=== PATIENT | female | born 1965 | race Caucasian/White ===

== ENCOUNTER 2016-12-05 13:00 | Emergency (ER) | payer OTHER ==
[~2016-12-05] VITALS: Wt 72.6 kg
[~2016-12-05 13:00] MED LIST: LEVAQUIN750 M1 IV; MERREM IV1 GM IV; NOVAPLUS LORA2 MG/ML IV; PRILOSEC20 M1 PO; PROTONIX40 M1 IV; SANDOSTATIN50 MCG/ML IV; SENEXON-S 50 MG1 TAB PO; THIAMINE HY100 MG/ML IV; VANCO 1.51.5 GM/250 IV; [UNRECOGNIZED DRUG - NUTRITION] IV
[2016-12-05 13:33] LABS: MEAN CELL VOLUME 96.6 fl (81.0-99.0); MEAN CORPUSCULAR HGB 29.5 pg (27.0-31.0); MEAN CORPUSCULAR HGB CONC 30.6 g/dl (33.0-37.0); MEAN PLATELET VOLUME 12.9 fl (9.6-12.3); PLATELET COUNT AUTOMATED 189 10*3/uL (130-400); RED BLOOD COUNT 1.76 10*6/uL (4.10-5.10); RED CELL DISTRI WIDTH 17.6 % (0-14.5); WHITE BLOOD COUNT 11.6 10*3/uL (4.8-10.8)
[2016-12-05 13:40] LABS: HEMOGLOBIN 5.2 g/dl (12.0-16.0); INTERNATIONAL NORM RATIO 1.9 (2.0-3.5); PROTHROMBIN TIME 21.1 SECONDS (9.0-12.4)
[2016-12-05 13:49] LABS: ALBUMIN 1.7 gm/dl (3.1-4.5); ALKALINE PHOSPHATASE 97 U/L (45-117); BILIRUBIN, TOTAL 4.8 mg/dl (0.2-1.0); BUN 11 mg/dl (7-24); CARBON DIOXIDE 15 mmol/L (21-32); CHLORIDE 115 mmol/L (98-107); EOSINOPHIL # 0.3 10*3/uL (0-0.4); EOSINOPHILS 3 % (1-4); EST GLOM FILT AFRICAN AMERICAN > 60 ml/min; GLUCOSE 118 mg/dL (65-99); LYMPHOCYTE # 1.5 10*3/uL (1.3-4.4); MAGNESIUM 1.3 mg/dL (1.5-2.1); MONOCYTE # 0.5 10*3/uL (0.1-1.0); NEUTROPHIL # 9.3 10*3/uL (2.3-7.9); NEUTROPHILS 80 % (47-73); PLATELET SUFFICIENCY NORMAL (NORMAL); POLYCHROMASIA SLIGHT; POTASSIUM 2.6 mmol/L (3.5-5.1); SGOT/AST 33 IU/L (3-35); SGPT/ALT 22 U/L (12-78); SODIUM 145 mmol/L (136-145); TOTAL CELLS COUNTED 100 #CELLS; TOTAL PROTEIN 4.6 gm/dL (6.4-8.2)
[2016-12-05 13:50] LABS: TROPONIN I 0.022 ng/ml (<0.045)
[2016-12-05 15:28] LABS: LA>2 REFLEX 2 HR DRAW NOW
== END 2016-12-05 15:03 | disposition short-term general hospital (02) ==
LOC: ED 13:00
PROVIDERS: Emergency Medicine Emergency Medical Services
DX: K92.2 Gastrointestinal hemorrhage, unspecified (principal); I95.9 Hypotension, unspecified; I10 Essential (primary) hypertension; Z79.899 Other long term (current) drug therapy; Z88.0 Allergy status to penicillin

== ENCOUNTER 2016-12-25 05:00 | Emergency (ER) | payer OTHER ==
[~2016-12-25] VITALS: Ht 162 cm; Wt 74.4 kg
[2016-12-25 05:22] LABS: BASO # 0.1 10*3/uL (0.0-0.1); BASO % 0.3 % (0.0-1.0); EOS # 0.7 10*3/uL (0.0-0.4); EOS % 3.5 % (1.0-4.0); HEMATOCRIT 19.7 % (37.0-47.0); HEMOGLOBIN 6.4 g/dl (12.0-16.0); IG # 0.2 10*3/uL (0.0-0.1); LYMPH # 2.5 10*3/uL (1.3-4.4); LYMPH % 13.2 % (27.0-41.0); MEAN CORPUSCULAR HGB 31.5 pg (27.0-31.0); MEAN CORPUSCULAR HGB CONC 32.5 g/dl (33.0-37.0); MEAN PLATELET VOLUME 12.2 fl (9.6-12.3); MONO # 1.2 10*3/uL (0.1-1.0); MONO % 6.2 % (3.0-9.0); NEUT # 14.1 10*3/uL (2.3-7.9); NEUT % 75.8 % (47.0-73.0); PLATELET COUNT AUTOMATED 139 10*3/uL (130-400); RED BLOOD COUNT 2.03 10*6/uL (4.10-5.10); RED CELL DISTRI WIDTH 25.2 % (0-14.5); WHITE BLOOD COUNT 18.6 10*3/uL (4.8-10.8)
[2016-12-25 05:37] LABS: ALBUMIN 1.8 gm/dl (3.1-4.5); ALKALINE PHOSPHATASE 141 U/L (45-117); BUN 4 mg/dl (7-24); CARBON DIOXIDE 20 mmol/L (21-32); CHLORIDE 96 mmol/L (98-107); EST GLOM FILT AFRICAN AMERICAN > 60 ml/min; GLUCOSE 121 mg/dL (65-99); SGOT/AST 43 IU/L (3-35); SGPT/ALT 17 U/L (12-78); SODIUM 132 mmol/L (136-145)
[2016-12-25 05:43] LABS: INTERNATIONAL NORM RATIO 1.9 (2.0-3.5); PROTHROMBIN TIME 20.6 SECONDS (9.0-12.4)
[2016-12-25 05:44] LABS: TROPONIN I 0.016 ng/ml (<0.045)
[2016-12-25 05:45] LABS: BILIRUBIN, TOTAL 19.5 mg/dl (0.2-1.0); POTASSIUM 2.3 mmol/L (3.5-5.1)
== END 2016-12-25 06:08 | disposition short-term general hospital (02) ==
LOC: ED 05:00
PROVIDERS: Emergency Medicine
DX: K92.2 Gastrointestinal hemorrhage, unspecified (principal); I85.01 Esophageal varices with bleeding; I95.9 Hypotension, unspecified; K72.10 Chronic hepatic failure without coma; I10 Essential (primary) hypertension; Z88.0 Allergy status to penicillin; Z79.899 Other long term (current) drug therapy

== ENCOUNTER 2017-01-31 16:36 | Inpatient (IN) | payer OTHER ==
[~2017-01-31] VITALS: Ht 165.1 cm; Wt 79.0 kg
--- NOTE | ~2017-01-31 | ST ---
[place], [place] EXERCISE STRESS TEST REPORT NAME: MAGDA LANG UNIT #: [id number] ROOM: [facility] DOCTOR: SONI KHALIL,ISABELLA BIRTHDATE: [birth year] DOS: 02/04/2017 REASON FOR TEST: Evaluation of ischemia in a patient with abnormal cardiac enzymes. PHYSICAL EXAMINATION NECK: Supple. LUNGS: Clear. HEART: Regular rhythm. PROTOCOL: Lexiscan protocol. Maximum heart rate 86, peak blood pressure 118/80. SYMPTOMS: The patient is chest pain free. EKG: Resting EKG sinus rhythm. Stress EKG showed no ischemia, no arrhythmias. CONCLUSION: Clinically, the patient is chest pain free. EKG nonischemic. POST-STRESS COMPLICATIONS: None. ISABELLA SHAFER MD CM:STRESS:EXERCISE STRESS TEST REPORT 0930 1841 ISABELLA SHAFER MD
--- NOTE | ~2017-01-31 | CON ---
[place], [place] REPORT OF CONSULTATION NAME: MAGDA LANG UNIT #: [id number] ROOM: [facility] DOCTOR: ISABELLA SHAFER MD BIRTHDATE: [birth year] DOS: 02/01/2017 CARDIOLOGY CONSULT NOTE REASON FOR CONSULTATION: Elevated troponin and QT prolongation. As per this note, there is an addendum to the note dictated by Dr. Gwyn Calabrese. I personally examined and assessed the patient today. Rhythm strips and labs were reviewed. PAST MEDICAL HISTORY: Reviewed. Case was discussed with the resident physician. Dr. Calabrese's examination and assessment reflects my work. The patient was admitted for symptoms of dizziness and abdominal symptoms. She never had chest pain. She did have some chronic exertional dyspnea. No palpitations, no syncope. Cardiology was consulted for further recommendations due to her prolonged QTc. PHYSICAL EXAMINATION: VITAL SIGNS: Stable. CARDIAC: Regular rhythm, grade 1/6 systolic murmur. No palpable thrills. ABDOMEN: Positive for ascites. LUNGS: Slightly diminished at the bases. EXTREMITIES: Showed no edema. IMPRESSION: 1. Borderline elevation of troponin, possibly demand ischemia, but the patient is chest pain free. EKG showed no ischemic changes. 2. Her QT borderline elevated . Her QT is 411, but when I ____ to her heart rate, the QTc was slightly prolonged. 3. Chronic dyspnea. 4. Ascites. 5. History of cirrhosis, status post transjugular intrahepatic portosystemic shunt. 6. Mild valvular heart disease. RECOMMENDATIONS: 1. Continue current medications. 2. She denies any chest pain. The EKG showed no ischemic changes. 3. Lexiscan stress test tomorrow if she is stable to rule out ischemia. 4. Recent 2-D echo reviewed. Further recommendations based on her symptoms and her stress test. [place], [place] REPORT OF CONSULTATION NAME: MAGDA LANG UNIT #: [id number] ROOM: [facility] DOCTOR: ISABELLA SHAFER MD BIRTHDATE: [birth year] ISABELLA SHAFER MD CM:CONSTR:REPORT OF CONSULTATION 1149 02/02/17 0342 interface
--- NOTE | ~2017-01-31 | O ---
[place], [place] OPERATIVE NOTE NAME: MAGDA LANG UNIT #: [id number] ROOM: 519 DOCTOR: CHERRI AARON MD BIRTHDATE: [birth year] DOS: 02/04/2017 GASTROENDOSCOPIC REPORT HISTORY OF PRESENT ILLNESS: This is a 51-year-old patient who has presented with chief complaint of cirrhosis, ascites, portal hypertension, under liver transplant candidacy, ETOH etiology with nausea and guaiac positivity. PROCEDURE: Today's procedure part of investigation is panendoscopy plus biopsy. PREMEDICATION: Versed and Diprivan. SCOPE: Olympus forward-viewing gastroscope Q10 video. REPORT: After putting the patient in the left lateral position and after application of lubricant to the scope, the scope was introduced. Thereafter, under direct visualization, I advanced through the length of the esophagus without difficulty. Esophagus, cervicothoracic distally carefully examined. Gastric pouch was entered. Gastritis secondary to alcoholic gastropathy was identified, photographed and biopsied. Duodenal bulb, second and third part within normal limits. Small hiatal hernia was noticed 2 cm, 2+ esophageal varicosities, especially at the lower esophagus was identified. Distal esophagitis was noticed. The patient extubated, tolerated procedure well. IMPRESSION: Alcoholic gastropathy, gastritis, distal esophagitis, small hiatal hernia, esophageal varicosity. PLAN AND DISCUSSION: Supportive management, Protonix 40 mg every day, clinical reassessment as we go along. The patient's definitive management is depending on the liver transplant. CHERRI AARON MD CM:OPRECORD:OPERATIVE NOTE 1636 18 CHERRI AARON MD 02/04/172118 interface
--- NOTE | ~2017-01-31 | CON ---
[place], [place] REPORT OF CONSULTATION [facility]: [id number] UNIT #: [id number] ROOM: 519 DOCTOR: AGNIESZKA KHALIL,CHERRI BIRTHDATE: [birth year] DOS: GASTROENDOSCOPIC REPORT HISTORY OF PRESENT ILLNESS: The patient is a 51-year-old who has presented with history of cirrhosis, previous admission to [facility] and transferred to [facility] because of massive hematemesis and management in [facility] with esophageal varicosity, portal hypertension, management of esophageal band ligation, Osmar tube placement, all has been recognized. The patient has had a history of 20 years of at least two 6-pack of beer per day. The patient has been recently diagnosed with liver disease since November and as a result recurrent issues of management. The patient at the time of admission had a white blood cell of 15, H and H of 10 and 29 and her platelet count was 146. Lactic acid was 4.1. INR was 1.9. PT/PTT of 21 and 41 seconds respectively without being on anticoagulant. Chest x-ray abnormal opacity posterior lung, the mid thoracic vertebral body. Comprehensive metabolic panel: BUN and creatinine normal. Initial electrolytes with severe hypokalemia of 1.8, hypochloremia of 86 and bilirubin of 29, alkaline phosphatase of 234. CT scan of the abdomen and pelvis was done, cirrhotic liver with moderate ascites, gallbladder is ____ contracted containing stones. CT scan of the chest was done in search of the nodules, no acute process was identified. Lactic acid was followed up, 2.9. Urinalysis was addressed with 3+ bilirubin, nitrite positivity, and 4+ plus bacteria all has been noticed. Serum ammonia is 81, a basic metabolic panel after further correction gradually improving. The last set of electrolytes, improvement to 137 and 3.0 potassium, this has been even further corrected to substituted IV potassium rider, and phosphorus of 1.4 was addressed with 30 mmol of K-Phos. In addition, magnesium 1.9 is going to be addressed with 1 gram of magnesium; 1.9 was addressed, GFR greater than 60. CBC differential further drop in H and H from admission was noticed to 7 and 23, platelets with thrombocytopenia of 125 is known. Blood cultures were done, negative. Urine culture was done, greater than 100,000 heavy gram-positive cocci were identified. PAST MEDICAL HISTORY: GI bleed, esophageal varicosity, portal hypertension, cirrhosis, esophageal band ligation, pancreatitis, protein-calorie malnutrition, all has been known, cirrhosis of end-stage known with ascites formation and recurrent paracentesis. PAST SURGICAL HISTORY: TIPS and knee. SOCIAL HISTORY: Smoker and alcohol, positive history. FAMILY HISTORY: Noncontributory. ALLERGIES: PENICILLIN. MEDICATIONS: List has been reviewed. The patient has been on Xifaxan, lactulose and nadolol on board, and the spironolactone as well. REVIEW OF SYSTEMS: [place], [place] REPORT OF CONSULTATION NAME: MAGDA LANG UNIT #: [id number] ROOM: [facility] DOCTOR: AGNIESZKA KHALIL,[facility] BIRTHDATE: [birth year] HEENT: Denies double vision, blurred vision. RESPIRATORY: Denies shortness of breath. CARDIOVASCULAR: Denies chest pain. DIGESTIVE SYSTEM: No hematemesis, no hematochezia at this time. PHYSICAL EXAMINATION: VITAL SIGNS: Hypotension, which has been addressed with vasopressors. Otherwise, alert, oriented, no evidence of encephalopathy. HEENT: Head normocephalic, nontraumatic. Mouth and buccal mucosa benign. NECK: Supple, no thyromegaly. CHEST: Symmetric anatomy, equal expansion. No wheeze, no rhonchi. HEART: Normal sinus rhythm, no gallop, no murmur. ABDOMEN: Evidence of ascites with fluid shift is noticed. No pulsatile mass. No rebound tenderness. EXTREMITIES: Dry. No cellulitis, no pedal edema. No status dermatitis. NEUROLOGIC: Fully alert, oriented to time, place, person. Sensory, motor intact. Cranial nerves 2-12 intact. No evidence of encephalopathy. No evidence of asterixis noticed. IMPRESSION: Electrolyte imbalance, hypomagnesemia, hypophosphatemia, cirrhosis and sequela of cirrhosis, portal hypertension, esophageal varicosity, ascites, thrombocytopenia, all has been recognized; severe hyperbilirubinemia noticed. Of note is that at this time, we have urinary tract infection with gram-positive cocci and in the presence of ascites, we are concerned occurrence of spontaneous bacterial peritonitis, therefore Infectious Disease consultation is ordered. We will transfuse for the anemia. We will continue with lactulose and Xifaxan for her hyperammonemia. Hypotension is being addressed by vasopressor. Paracentesis tap results pending. PLAN AND DISCUSSION: Workup in progress, I will be standing by. After the transfusion and stabilization, we may consider endoscopy of upper GI tract due to the significant drop in H and H and the history on hand. CHERRI AARON MD CM:CONSTR:REPORT OF CONSULTATION 1409 02/03/17 0347 interface
--- NOTE | ~2017-01-31 | PROC NOTE ---
[place], [place] PROCEDURE NOTE NAME: [facility]ANG [id number] UNIT #: [id number] ROOM: [facility] DOCTOR: LEONIDES MADDOX MD BIRTHDATE: [birth year] DOS: 02/03/2017 PREOPERATIVE DIAGNOSIS: Cirrhosis of the liver, poor IV access. POSTOPERATIVE DIAGNOSIS: Cirrhosis of the liver, poor IV access. PROCEDURE: Left internal jugular MediPort placement. SURGEON: Dr. Leonides Maddox. LITHARGE MILL OPERATOR: PGY1. ANESTHESIA: MAC. INDICATIONS: This is a 51-year-old lady with a history cirrhosis of the liver and has poor IV access, who needs a MediPort placement for blood draws and IV access. It was decided to take the patient to the operating room for a MediPort placement. The procedure and its complications explained to the patient in detail preoperatively. Complications that were discussed included but were not limited to bleeding, infection, damage to underlying vital structures, hemothorax, pneumothorax and infection. She agreed to proceed. DESCRIPTION OF PROCEDURE: After identifying the patient, the patient was brought to the operating suite and laid in the supine position. After induction of IV sedation, a timeout procedure was called and the parts were painted and draped in the usual sterile fashion. The patient was placed in Trendelenburg position with her head turned to the right side. It was decided to proceed with a left internal jugular MediPort placement. With the help of an ultrasound guidance, the left internal jugular vein was accessed percutaneously. Thereafter, the guidewire was placed, and it was confirmed to be in good placement upon visualizing it on fluoroscopy. At this point, local anesthesia was infiltrated in the proposed site for the MediPort placement, which was approximately 3 fingerbreadths below the left clavicle. Incision was marked and local anesthesia was infiltrated. Incision was made and a pocket was created for the port. After adequate hemostasis was confirmed, the catheter was mounted over a tunneling device, and then it was passed from the area of the incision that was made for placement to the site, where the internal jugular vein was accessed percutaneously. Thereafter, the wire was fed over dilator, which was placed over the wire. After adequate placement was confirmed, the peel away sheath was removed and the catheter was found to be in adequate position on fluoroscopy. At this point, the catheter was cut to size and the port was placed with the catheter. The catheter was found to be in good position, and there was good blood flow, blood draw and good float to the heparin that was injected through the chamber. The port itself was then fixed to the underlying fascia with the help of 2-0 Prolene in an interrupted fashion. The subcutaneous tissue was approximated with the help of 3-0 Vicryl in a running fashion and the skin edges were approximated with the help of 4-0 Vicryl in a subcuticular running fashion. A dressing was placed, the port site was accessed again percutaneously and was found to be in good position and with good blood draws. The patient was taken to the recovery room in a stable fashion. There were no [place], [place] PROCEDURE NOTE NAME: RICKEYMAGDA Shaw [facility]: [id number] UNIT #: [id number] ROOM: [facility] DOCTOR: LEONIDES MADDOX MD BIRTHDATE: [address] Leonides Maddox, the attending surgeon, was present throughout the operating case. Chest x-ray was ordered for placement in the recovery room. Leonides Maddox MD CM:PROCNOTE:PROCEDURE NOTE 1252 2224 LEONIDES MADDOX MD
--- NOTE | ~2017-01-31 | PR ---
[place], [place] PROGRESS NOTE NAME: MAGDA LANG UNIT #: [id number] ROOM: 519 DOCTOR: SONI KHALIL,ISABELLA BIRTHDATE: [birth year] DOS: 02/02/2017 REASON FOR VISIT: Elevated cardiac enzymes and dyspnea. This note is an addendum to the note done by . I personally examined this with the patient. Labs and rhythm strips reviewed. Mrs. Lang is feeling better. Denies any chest pain or palpitations. PHYSICAL EXAMINATION: HEART: Focused exam of the heart was regular rhythm, grade 1/6 systolic murmur. LUNGS: A few scattered rhonchi. ABDOMEN: Positive for ascites. EXTREMITIES: Showed no edema. The patient had jaundice. EYES: The patient had significant icterus. IMPRESSION: 1. Borderline elevation in troponin, possible demand ischemia from anemia. 2. Anemia. 3. Jaundice. 4. Ascites, status post paracentesis. RECOMMENDATIONS: 1. Continue current medication. 2. We will cancel her stress test today. 3. She will be cleared for upper endoscopy from the cardiac standpoint. 4. We will consider her stress test as an outpatient or prior to discharge. ISABELLA SHAFER MD CM:PNTRANS 1529 0409 ISABELLA SHAFER MD 02/03/17 0409 interface
--- NOTE | ~2017-01-31 | PR ---
[place], [place] PROGRESS NOTE NAME: MAGDA LANG UNIT #: [id number] ROOM: 519 DOCTOR: SONI KHALIL,ISABELLA BIRTHDATE: [birth year] DOS: 02/03/2017 REASON FOR VISIT: Elevated troponin. HISTORY: The patient is somewhat better, less short of breath. Denies any chest pain, palpitations, or dizziness. 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 She received a packed red blood cells ____ hemoglobin has improved to 9.1. This note is an addendum to the note done by ____ exam and assessment reflects my work. PHYSICAL EXAMINATION: FOCUSED CARDIAC EXAM: HEART: Regular rhythm, no S3, grade 1/6 systolic murmur. ABDOMEN: Showed positive ascites. EXTREMITIES: Showed no significant edema. IMPRESSION: 1. Borderline elevation of troponin, clinically not significant, the patient had no chest pain and EKG with no ischemic changes. 2. Anemia, status post packed red blood cell transfusion. 3. Acidosis status post TIPS. 4. Mild mitral regurgitation by echo. RECOMMENDATIONS: 1. She appears to stable from a cardiac standpoint. 2. Continue current medications. 3. She is getting Mediport today and then tomorrow she is going for endoscopy to look for any source of bleeding. Cardiology will see her as needed and I would recommend possibly outpatient stress test when she is more stable. ISABELLA SHAFER MD CM:PNTRANS [phone] ISABELLA SHAFER MD 02/03/17 3435 interface
[2017-01-31 16:42] VITALS: BP 128/50
[2017-01-31] MEDS ORDERED: LACTULOSE10 GM/153 PO (16:48)
[2017-01-31 17:15] LABS: BASO # 0.1 10*3/uL (0.0-0.1); BASO % 0.3 % (0.0-1.0); EOS # 0.1 10*3/uL (0.0-0.4); EOS % 0.8 % (1.0-4.0); HEMATOCRIT 29.3 % (37.0-47.0); HEMOGLOBIN 10.3 g/dl (12.0-16.0); IG # 0.1 10*3/uL (0.0-0.1); LYMPH # 1.1 10*3/uL (1.3-4.4); LYMPH % 7.1 % (27.0-41.0); MEAN CELL VOLUME 93.9 fl (81.0-99.0); MEAN CORPUSCULAR HGB CONC 35.2 g/dl (33.0-37.0); MEAN PLATELET VOLUME 11.2 fl (9.6-12.3); MONO # 0.9 10*3/uL (0.1-1.0); MONO % 6.1 % (3.0-9.0); NEUT # 13.1 10*3/uL (2.3-7.9); NEUT % 84.9 % (47.0-73.0); PLATELET COUNT AUTOMATED 146 10*3/uL (130-400); RED BLOOD COUNT 3.12 10*6/uL (4.10-5.10); RED CELL DISTRI WIDTH 15.8 % (0-14.5); WHITE BLOOD COUNT 15.4 10*3/uL (4.8-10.8)
[2017-01-31 17:25] LABS: INTERNATIONAL NORM RATIO 1.9 (2.0-3.5); PROTHROMBIN TIME 21.4 SECONDS (9.0-12.4)
[2017-01-31 17:32] LABS: ALBUMIN 2.2 gm/dl (3.1-4.5); ALKALINE PHOSPHATASE 234 U/L (45-117); BUN 4 mg/dl (7-24); C-REACTIVE PROTEIN 0.99 MG/DL (0-0.3); CARBON DIOXIDE 20 mmol/L (21-32); CHLORIDE 86 mmol/L (98-107); CKMB 3.5 ng/ml (0.5-3.6); CPK 90 U/L (26-192); EST GLOM FILT AFRICAN AMERICAN > 60 ml/min; GLUCOSE 112 mg/dL (65-99); SGOT/AST 48 IU/L (3-35); SGPT/ALT 17 U/L (12-78); SODIUM 124 mmol/L (136-145); TROPONIN I 0.044 ng/ml (<0.045)
[2017-01-31 17:45] LABS: POTASSIUM 1.8 mmol/L (3.5-5.1)
[2017-01-31 17:46] LABS: BILIRUBIN, TOTAL 29.1 mg/dl (0.2-1.0)
[2017-01-31 18:06] LABS: TOTAL PROTEIN 5.8 gm/dL (6.4-8.2)
[2017-01-31 19:13] LABS: LA>2 REFLEX 2 HR DRAW NOW
[2017-01-31 19:37] VITALS: BP 142/62
[2017-01-31 19:44] LABS: LA>2 RFLX FOLLOW UP AT 2 HRS 2.9 mmol/L (0.4-2.0)
[2017-01-31 20:20] VITALS: BP 142/62
[2017-01-31 20:24] LABS: BILIRUBIN 3+ (NEGATIVE); BLOOD NEGATIVE (NEGATIVE); CLARITY CLOUDY (CLEAR); COLOR YELLOW (YELLOW); GLUCOSE TRACE (NEGATIVE); KETONE 1+ (NEGATIVE); LEUKO ESTERASE TRACE (NEGATIVE); NITRITE POSITIVE (NEGATIVE); PROTEIN 1+ (NEGATIVE)
[2017-01-31 20:42] LABS: EPITHELIAL CELLS 0-3; RBC 0-2 rbc/hpf (0-2)
[2017-01-31 20:43] LABS: BACTERIA 4+; URINE REFLEX COMMENT YES (NO)
[2017-01-31 22:05] LABS: LA>2 REFLEX 4 HR DRAW NOW
[2017-01-31 23:12] LABS: BUN 4 mg/dl (7-24); CARBON DIOXIDE 21 mmol/L (21-32); CHLORIDE 89 mmol/L (98-107); EST GLOM FILT AFRICAN AMERICAN > 60 ml/min; GLUCOSE 84 mg/dL (65-99); SODIUM 126 mmol/L (136-145)
[2017-02-01] VITALS: BP 108/45
[2017-02-01 04:00] VITALS: BP 104/51
[2017-02-01 07:15] LABS: BASO % 0.3 % (0.0-1.0); EOS # 0.2 10*3/uL (0.0-0.4); EOS % 1.5 % (1.0-4.0); HEMATOCRIT 25.2 % (37.0-47.0); HEMOGLOBIN 8.7 g/dl (12.0-16.0); IG # 0.1 10*3/uL (0.0-0.1); LYMPH % 9.1 % (27.0-41.0); MEAN CELL VOLUME 95.5 fl (81.0-99.0); MEAN CORPUSCULAR HGB CONC 34.5 g/dl (33.0-37.0); MEAN PLATELET VOLUME 11.1 fl (9.6-12.3); MONO # 0.9 10*3/uL (0.1-1.0); MONO % 8.2 % (3.0-9.0); NEUT # 9.1 10*3/uL (2.3-7.9); NEUT % 80.1 % (47.0-73.0); PLATELET COUNT AUTOMATED 130 10*3/uL (130-400); PROTHROMBIN TIME 22.3 SECONDS (9.0-12.4); RED BLOOD COUNT 2.64 10*6/uL (4.10-5.10); RED CELL DISTRI WIDTH 15.7 % (0-14.5); WHITE BLOOD COUNT 11.3 10*3/uL (4.8-10.8)
[2017-02-01 07:25] LABS: ALBUMIN 1.7 gm/dl (3.1-4.5); BUN 4 mg/dl (7-24); CARBON DIOXIDE 20 mmol/L (21-32); CHLORIDE 92 mmol/L (98-107); EST GLOM FILT AFRICAN AMERICAN > 60 ml/min; GLUCOSE 101 mg/dL (65-99); MAGNESIUM 2.1 mg/dL (1.5-2.1); PHOSPHOROUS 2.2 mg/dL (2.5-4.9); SODIUM 128 mmol/L (136-145)
[2017-02-01 07:26] LABS: POTASSIUM 2.2 mmol/L (3.5-5.1)
[2017-02-01 08:00] VITALS: BP 110/50
[2017-02-01 08:40] LABS: ESTIMATED AVERAGE GLUCOSE 54; HEMOGLOBIN A1c < 3.5 % (4.8-5.6)
[2017-02-01] MEDS ORDERED: LACTULOSE20 GM/30 M PO (09:57)
[2017-02-01] MEDS ORDERED: XIFAXAN550 MG PO (09:58)
[2017-02-01] MEDS ORDERED: SENNA8.6 MG PO (09:59)
[2017-02-01] MEDS ORDERED: VITAMIN B-11 TAB PO (10:00)
[2017-02-01] MEDS ORDERED: NATURE'S BLEND F1 MG PO (10:00)
[2017-02-01] MEDS ORDERED: PRILOSEC20 M1 PO (10:00)
[2017-02-01] MEDS ORDERED: CORGARD40 M1 PO (10:01)
[2017-02-01] MEDS ORDERED: ALDACTONE50 M1 PO (10:01)
[2017-02-01 12:00] VITALS: BP 113/50
[2017-02-01 12:29] LABS: THYROID STIM HORMONE (HS) 1.15 uIU/ml (0.358-4.75)
[2017-02-01 12:37] LABS: BUN 4 mg/dl (7-24); CARBON DIOXIDE 22 mmol/L (21-32); CHLORIDE 93 mmol/L (98-107); EST GLOM FILT AFRICAN AMERICAN > 60 ml/min; GLUCOSE 109 mg/dL (65-99); POTASSIUM 2.7 mmol/L (3.5-5.1); SODIUM 126 mmol/L (136-145)
[2017-02-01 12:41] LABS: TROPONIN I 0.046 ng/ml (<0.045)
[2017-02-01 15:55] LABS: BODY FLUID RBC < 1000 /uL; BODY FLUID WBC 102 /uL
[2017-02-01 16:00] VITALS: BP 90/39
[2017-02-01 16:03] LABS: BODY FLUID GLUCOSE 146 mg/dl; BODY FLUID LDH 49 IU/L; BODY FLUID PROTEIN 0.8 g/dl
[2017-02-01 16:35] LABS: BF LYMPHOCYTES 8 %; BF MACROPHAGES 73 %; BF MESOTHELIALS 11 %; BF MONOCYTES 1 %; BF NEUTROPHILS 6 %
[2017-02-01 16:37] LABS: BODY FLUID TYPE PERITONEAL
[2017-02-01 20:00] VITALS: BP 114/57
[2017-02-02] VITALS (9 sets, daily range): BP systolic 93–113; BP diastolic 40–61
[2017-02-02 05:54] LABS: ALBUMIN 1.9 gm/dl (3.1-4.5); BUN 4 mg/dl (7-24); CARBON DIOXIDE 20 mmol/L (21-32); CHLORIDE 107 mmol/L (98-107); EST GLOM FILT AFRICAN AMERICAN > 60 ml/min; GLUCOSE 108 mg/dL (65-99); MAGNESIUM 1.9 mg/dL (1.5-2.1); PHOSPHOROUS 1.4 mg/dL (2.5-4.9); SODIUM 137 mmol/L (136-145)
[2017-02-02 06:20] LABS: PROTHROMBIN TIME 22.1 SECONDS (9.0-12.4)
[2017-02-02 06:23] LABS: BASO % 0.4 % (0.0-1.0); EOS # 0.2 10*3/uL (0.0-0.4); EOS % 1.8 % (1.0-4.0); HEMATOCRIT 23.5 % (37.0-47.0); HEMOGLOBIN 7.9 g/dl (12.0-16.0); IG # 0.1 10*3/uL (0.0-0.1); LYMPH # 1.1 10*3/uL (1.3-4.4); LYMPH % 11.1 % (27.0-41.0); MEAN CORPUSCULAR HGB 33.2 pg (27.0-31.0); MEAN CORPUSCULAR HGB CONC 33.6 g/dl (33.0-37.0); MONO % 10.5 % (3.0-9.0); NEUT # 7.4 10*3/uL (2.3-7.9); NEUT % 75.3 % (47.0-73.0); PLATELET COUNT AUTOMATED 125 10*3/uL (130-400); RED BLOOD COUNT 2.38 10*6/uL (4.10-5.10); RED CELL DISTRI WIDTH 15.9 % (0-14.5); WHITE BLOOD COUNT 9.9 10*3/uL (4.8-10.8)
[2017-02-02 06:28] LABS: MEAN CELL VOLUME 98.7 fl (81.0-99.0)
[2017-02-03] VITALS (10 sets, daily range): BP systolic 78–106; BP diastolic 33–64
[2017-02-03 07:14] LABS: ALBUMIN 1.9 gm/dl (3.1-4.5); BUN 3 mg/dl (7-24); CARBON DIOXIDE 22 mmol/L (21-32); CHLORIDE 108 mmol/L (98-107); EST GLOM FILT AFRICAN AMERICAN > 60 ml/min; GLUCOSE 98 mg/dL (65-99); MAGNESIUM 1.8 mg/dL (1.5-2.1); PHOSPHOROUS 3.6 mg/dL (2.5-4.9); POTASSIUM 3.2 mmol/L (3.5-5.1); SGOT/AST 40 IU/L (3-35); SGPT/ALT 17 U/L (12-78); SODIUM 139 mmol/L (136-145)
[2017-02-03 07:15] LABS: INTERNATIONAL NORM RATIO 1.8 (2.0-3.5); PROTHROMBIN TIME 19.5 SECONDS (9.0-12.4)
[2017-02-03 07:42] LABS: BILIRUBIN, TOTAL 23.6 mg/dl (0.2-1.0)
[2017-02-03 07:44] LABS: TOTAL PROTEIN 4.4 gm/dL (6.4-8.2)
[2017-02-03 07:45] LABS: ALKALINE PHOSPHATASE 160 U/L (45-117)
[2017-02-03 08:17] LABS: BASO # 0.1 10*3/uL (0.0-0.1); BASO % 0.7 % (0.0-1.0); EOS # 0.3 10*3/uL (0.0-0.4); EOS % 2.2 % (1.0-4.0); HEMATOCRIT 27.2 % (37.0-47.0); HEMOGLOBIN 9.1 g/dl (12.0-16.0); IG # 0.1 10*3/uL (0.0-0.1); LYMPH # 1.6 10*3/uL (1.3-4.4); LYMPH % 13.5 % (27.0-41.0); MEAN CELL VOLUME 97.1 fl (81.0-99.0); MEAN CORPUSCULAR HGB 32.5 pg (27.0-31.0); MEAN CORPUSCULAR HGB CONC 33.5 g/dl (33.0-37.0); MEAN PLATELET VOLUME 10.5 fl (9.6-12.3); NEUT # 8.5 10*3/uL (2.3-7.9); NEUT % 73.6 % (47.0-73.0); PLATELET COUNT AUTOMATED 115 10*3/uL (130-400); RED CELL DISTRI WIDTH 19.8 % (0-14.5); WHITE BLOOD COUNT 11.6 10*3/uL (4.8-10.8)
[2017-02-04] VITALS (9 sets, daily range): BP systolic 90–138; BP diastolic 40–72
[2017-02-04 06:52] LABS: BASO # 0.1 10*3/uL (0.0-0.1); BASO % 0.6 % (0.0-1.0); EOS # 0.2 10*3/uL (0.0-0.4); EOS % 2.2 % (1.0-4.0); HEMATOCRIT 25.8 % (37.0-47.0); HEMOGLOBIN 8.6 g/dl (12.0-16.0); IG # 0.1 10*3/uL (0.0-0.1); LYMPH # 1.5 10*3/uL (1.3-4.4); LYMPH % 13.9 % (27.0-41.0); MEAN CELL VOLUME 97.7 fl (81.0-99.0); MEAN CORPUSCULAR HGB 32.6 pg (27.0-31.0); MEAN CORPUSCULAR HGB CONC 33.3 g/dl (33.0-37.0); MEAN PLATELET VOLUME 11.4 fl (9.6-12.3); MONO # 0.9 10*3/uL (0.1-1.0); MONO % 8.5 % (3.0-9.0); NEUT % 73.8 % (47.0-73.0); RED BLOOD COUNT 2.64 10*6/uL (4.10-5.10); RED CELL DISTRI WIDTH 19.3 % (0-14.5); WHITE BLOOD COUNT 10.8 10*3/uL (4.8-10.8)
[2017-02-04 06:53] LABS: PLATELET COUNT AUTOMATED 80 10*3/uL (130-400)
[2017-02-04 07:27] LABS: ALBUMIN 1.8 gm/dl (3.1-4.5); ALKALINE PHOSPHATASE 157 U/L (45-117); BUN 4 mg/dl (7-24); CARBON DIOXIDE 20 mmol/L (21-32); CHLORIDE 110 mmol/L (98-107); GLUCOSE 97 mg/dL (65-99); MAGNESIUM 1.8 mg/dL (1.5-2.1); POTASSIUM 3.5 mmol/L (3.5-5.1); SODIUM 137 mmol/L (136-145)
[2017-02-04 07:34] LABS: INTERNATIONAL NORM RATIO 1.8 (2.0-3.5); PROTHROMBIN TIME 19.7 SECONDS (9.0-12.4)
[2017-02-04 07:38] LABS: EST GLOM FILT AFRICAN AMERICAN > 60 ml/min; SGOT/AST 44 IU/L (3-35); SGPT/ALT 16 U/L (12-78); TOTAL PROTEIN 4.3 gm/dL (6.4-8.2)
[2017-02-04 07:46] LABS: BILIRUBIN, TOTAL 22.6 mg/dl (0.2-1.0)
[2017-02-05 00:19] VITALS: BP 115/51
[2017-02-05 07:29] LABS: BASO # 0.1 10*3/uL (0.0-0.1); BASO % 0.9 % (0.0-1.0); EOS # 0.3 10*3/uL (0.0-0.4); EOS % 2.8 % (1.0-4.0); HEMATOCRIT 27.4 % (37.0-47.0); HEMOGLOBIN 8.8 g/dl (12.0-16.0); IG # 0.1 10*3/uL (0.0-0.1); LYMPH # 1.5 10*3/uL (1.3-4.4); LYMPH % 16.3 % (27.0-41.0); MEAN CELL VOLUME 98.6 fl (81.0-99.0); MEAN CORPUSCULAR HGB 31.7 pg (27.0-31.0); MEAN CORPUSCULAR HGB CONC 32.1 g/dl (33.0-37.0); MEAN PLATELET VOLUME 10.6 fl (9.6-12.3); MONO # 0.9 10*3/uL (0.1-1.0); MONO % 9.6 % (3.0-9.0); NEUT # 6.5 10*3/uL (2.3-7.9); NEUT % 69.5 % (47.0-73.0); PLATELET COUNT AUTOMATED 83 10*3/uL (130-400); RED BLOOD COUNT 2.78 10*6/uL (4.10-5.10); WHITE BLOOD COUNT 9.4 10*3/uL (4.8-10.8)
[2017-02-05 07:58] LABS: ALBUMIN 1.7 gm/dl (3.1-4.5); ALKALINE PHOSPHATASE 160 U/L (45-117); BUN 5 mg/dl (7-24); CARBON DIOXIDE 20 mmol/L (21-32); CHLORIDE 107 mmol/L (98-107); EST GLOM FILT AFRICAN AMERICAN > 60 ml/min; GLUCOSE 90 mg/dL (65-99); PHOSPHOROUS 3.6 mg/dL (2.5-4.9); POTASSIUM 3.3 mmol/L (3.5-5.1); SGOT/AST 43 IU/L (3-35); SGPT/ALT 15 U/L (12-78); SODIUM 138 mmol/L (136-145)
[2017-02-05 08:00] VITALS: BP 102/52
[2017-02-05 08:00] LABS: INTERNATIONAL NORM RATIO 1.7 (2.0-3.5)
[2017-02-05 08:07] LABS: BILIRUBIN, TOTAL 22.6 mg/dl (0.2-1.0)
[2017-02-05 08:10] LABS: TOTAL PROTEIN 4.3 gm/dL (6.4-8.2)
[2017-02-05] MEDS ORDERED: SPIRONOLACTONE100 MG PO (10:34)
[2017-02-05] MEDS ORDERED: PRILOSEC20 M1 PO (10:34)
[2017-02-05] MEDS ORDERED: METOPROLOL TART50 M1 PO (10:34)
[2017-02-05] MEDS ORDERED: VITAMIN D50000 I3 PO (10:34)
[2017-02-05] MEDS ORDERED: LACTULOSE20 GM/30 M PO (10:34)
[2017-02-05] MEDS ORDERED: K-TAB20 MEQ PO (10:38)
== END 2017-02-05 11:35 | disposition home or self-care (01) | DRG 871 ==
LOC: ED 16:36 → ICCU 19:46 → 5E 19:46 → EDHOLD 19:46 → ICCU 20:01 → 5E 02-02 14:11
PROVIDERS: Internal Medicine; Internal Medicine Hospice and Palliative Medicine; Internal Medicine Infectious Disease; Internal Medicine Nephrology; Nurse Practitioner Family; Student in an Organized Health Care Education/Training Program
PROC: 0W9G3ZZ Drainage of Peritoneal Cavity, Percutaneous Approach (ICD-10-PCS; principal; 2017-02-01)
PROC: 30233N1 Transfusion of Nonautologous Red Blood Cells into Peripheral Vein, Percutaneous Approach (ICD-10-PCS; 2017-02-02)
PROC: 30233L1 Transfusion of Nonautologous Fresh Plasma into Peripheral Vein, Percutaneous Approach (ICD-10-PCS; 2017-02-03)
PROC: 30233K1 Transfusion of Nonautologous Frozen Plasma into Peripheral Vein, Percutaneous Approach (ICD-10-PCS; 2017-02-03)
PROC: B544ZZA Ultrasonography of Left Jugular Veins, Guidance (ICD-10-PCS; 2017-02-03)
PROC: 02HV33Z Insertion of Infusion Device into Superior Vena Cava, Percutaneous Approach (ICD-10-PCS; 2017-02-03)
PROC: B5181ZA Fluoroscopy of Superior Vena Cava using Low Osmolar Contrast, Guidance (ICD-10-PCS; 2017-02-03)
PROC: 0DB68ZX Excision of Stomach, Via Natural or Artificial Opening Endoscopic, Diagnostic (ICD-10-PCS; 2017-02-04)
DX: A41.9 Sepsis, unspecified organism (principal); E43 Unspecified severe protein-calorie malnutrition; G93.41 Metabolic encephalopathy; I85.01 Esophageal varices with bleeding; E87.2 Acidosis; I95.9 Hypotension, unspecified; K76.6 Portal hypertension; E87.1 Hypo-osmolality and hyponatremia; N39.0 Urinary tract infection, site not specified; R17 Unspecified jaundice; D69.6 Thrombocytopenia, unspecified; K70.31 Alcoholic cirrhosis of liver with ascites; R65.20 Severe sepsis without septic shock; E87.6 Hypokalemia; I45.81 Long QT syndrome; I10 Essential (primary) hypertension; K29.70 Gastritis, unspecified, without bleeding; B95.2 Enterococcus as the cause of diseases classified elsewhere; Z16.21 Resistance to vancomycin; K44.9 Diaphragmatic hernia without obstruction or gangrene; I34.0 Nonrheumatic mitral (valve) insufficiency; D64.9 Anemia, unspecified; R06.00 Dyspnea, unspecified; E83.42 Hypomagnesemia; E83.39 Other disorders of phosphorus metabolism; B96.89 Other specified bacterial agents as the cause of diseases classified elsewhere; K31.9 Disease of stomach and duodenum, unspecified; K20.9 Esophagitis, unspecified; Z88.0 Allergy status to penicillin; Z79.899 Other long term (current) drug therapy; Z68.33 Body mass index [BMI] 33.0-33.9, adult; K72.90 Hepatic failure, unspecified without coma

== ENCOUNTER → 2017-02-07 | Outpatient (CLI) | payer OTHER ==
[~2017-02-07] MED LIST changes: +ALDACTONE50 M1 PO; +CORGARD40 M1 PO; +K-TAB20 MEQ PO; +LACTULOSE10 GM/153 PO; +LACTULOSE20 GM/30 M PO; +METOPROLOL TART50 M1 PO; +NATURE'S BLEND F1 MG PO; +SENNA8.6 MG PO; +SPIRONOLACTONE100 MG PO; +VITAMIN B-11 TAB PO; +VITAMIN D50000 I3 PO; +XIFAXAN550 MG PO
[2017-02-07 11:00] LABS: BASO # 0.1 10*3/uL (0.0-0.1); BASO % 0.5 % (0.0-1.0); EOS # 0.2 10*3/uL (0.0-0.4); EOS % 1.8 % (1.0-4.0); HEMATOCRIT 26.3 % (37.0-47.0); HEMOGLOBIN 8.6 g/dl (12.0-16.0); IG # 0.1 10*3/uL (0.0-0.1); LYMPH % 10.5 % (27.0-41.0); MEAN CELL VOLUME 98.9 fl (81.0-99.0); MEAN CORPUSCULAR HGB 32.3 pg (27.0-31.0); MEAN CORPUSCULAR HGB CONC 32.7 g/dl (33.0-37.0); MEAN PLATELET VOLUME 11.6 fl (9.6-12.3); MONO # 0.7 10*3/uL (0.1-1.0); MONO % 7.9 % (3.0-9.0); NEUT # 7.4 10*3/uL (2.3-7.9); NEUT % 78.3 % (47.0-73.0); PLATELET COUNT AUTOMATED 82 10*3/uL (130-400); RED BLOOD COUNT 2.66 10*6/uL (4.10-5.10); RED CELL DISTRI WIDTH 18.3 % (0-14.5); WHITE BLOOD COUNT 9.4 10*3/uL (4.8-10.8)
[2017-02-07 11:11] LABS: BUN 5 mg/dl (7-24); CARBON DIOXIDE 22 mmol/L (21-32); CHLORIDE 102 mmol/L (98-107); EST GLOM FILT AFRICAN AMERICAN > 60 ml/min; GLUCOSE 130 mg/dL (65-99); POTASSIUM 2.8 mmol/L (3.5-5.1); SODIUM 133 mmol/L (136-145)
== END | disposition home or self-care (01) ==
LOC: LAB 10:37
PROVIDERS: Internal Medicine
DX: R10.9 Unspecified abdominal pain (principal)

== ENCOUNTER 2017-02-21 12:34 | Inpatient (IN) | payer OTHER ==
[2017-02-21] VITALS (7 sets, daily range): BP systolic 84–102; BP diastolic 23–43
[~2017-02-21] VITALS: Ht 165.1 cm; Wt 95.8 kg
--- NOTE | ~2017-02-21 | PR ---
[place], [place] PROGRESS NOTE NAME: MAGDA LANG UNIT #: [id number] ROOM: [facility] DOCTOR: CORINA KHALIL,MARISSA Ely BIRTHDATE: [birth year] DOS: 02/24/2017 ADDENDUM I agreed with above plans as described. I will follow the patient clinically and adjust accordingly. MARISSA ARRIAGA MD CM:PNTRANS 20 52 MARISSA ARRIAGA MD 02/24/172251 interface
--- NOTE | ~2017-02-21 | O ---
[place], [place] OPERATIVE NOTE NAME: MAGDA LANG UNIT #: [id number] ROOM: [facility] DOCTOR: CHERRI AARON MD BIRTHDATE: [birth year] DOS: HISTORY OF PRESENT ILLNESS: A lady is 51-year-old with extensive history of alcohol abuse, cirrhosis, ascites, recurrent paracentesis, portal hypertension, esophageal varicosity, sequelae of thrombocytopenia, gastrointestinal bleed, anemia, transfusions, all have been recognized. PROCEDURE: Today's procedure part of investigation is panendoscopy plus epinephrine and resolution clip hemostasis therapy. PREMEDICATION: Versed and Diprivan. SCOPE: Olympus forward-viewing gastroscope Q10 video. REPORT: After putting the patient in the left lateral position and after application of lubricant to the scope, the scope was introduced. Thereafter, under direct visualization, I advanced through the length of esophagus without difficulty. Distal esophagitis with small varicosities which are the residual post-band ligation was noticed. A small hiatal hernia was noticed. Gastric pouch was entered along the lesser curvature towards the antrum. Small bleeding vessel with a clot on the surface was photographed, identified and leakage was documented repeatedly. At this stage, resolution clips were applied around the neck of the bleeding area and epinephrine 1:10,000, 2 mL was injected. The bleeding stopped. Duodenal bulb, second and third part within normal limit. Air was suctioned out. The patient extubated, tolerated the procedure well. IMPRESSION: 1. Bleeding visible vessel at the lesser curvature, status post epinephrine hemostasis therapy, status post resolution clip hemostasis therapy 2. Small hiatal hernia. 3. Distal esophagitis and erosions. 4. Small esophageal varicosities. PLAN AND DISCUSSION: Supportive therapy, paracentesis, beta shyam and transfusion. The patient was also advised if she wishes to have liver transplant, she has to have followup in [facility] followup as well. She should consider total abstinence from alcohol that she has been observing for the past few weeks. [place], [place] OPERATIVE NOTE NAME: MAGDA LANG UNIT #: [id number] ROOM: [facility] DOCTOR: CHERRI AARON MD BIRTHDATE: [birth year] CHERRI AARON MD CM:CORDELL:OPERATIVE NOTE 1706 43 CHERRI AARON MD 02/25/172043 interface
--- NOTE | ~2017-02-21 | CON ---
[place], [place] REPORT OF CONSULTATION NAME: MAGDA LANG UNIT #: [id number] ROOM: [facility] DOCTOR: CORINA KHALIL,MARISSA Ely BIRTHDATE: [birth year] DOS: 02/22/2017 ADDENDUM I agree with the above plans as described after reviewing the chart, labs and microbiology. We will follow the patient up clinically and make appropriate changes in therapy. Thank for allowing me to see the patient. MARISSA ARRIAGA MD CM:CONSTR:REPORT OF CONSULTATION 14 02/22/172050 interface
--- NOTE | ~2017-02-21 | PR ---
[place], [place] PROGRESS NOTE NAME: MAGDA LANG UNIT #: [id number] ROOM: [facility] DOCTOR: OKSANA KHALIL,ABIMAEL BIRTHDATE: [birth year] DOS: SUBJECTIVE: The patient is completely flat in bed, does not appear in distress. Denies any specific cardiac complaint. No chest pain, no symptomatic palpitation. A significant icterus could be seen. PHYSICAL EXAMINATION: VITAL SIGNS: Blood pressure 95/49, heart rate 77, respiratory rate of 16, temperature 97.8. NECK: Good upstroke. Unable to appreciate any JVD. HEART: S1, S2 with holosystolic murmur in the left upper sternal border. CHEST AND BACK: No deformities. LUNGS: Decreased air movement, but no fiona wheezing or rales. ABDOMEN: Obese, soft, nontender, present bowel sounds. LOWER EXTREMITIES: There is 2/4 edema bilateral. LABORATORY DATA: White count 8.7, hemoglobin 9.1, platelets 71,000. Potassium 4.4, creatinine 0.7, GFR more than 60. Total bilirubin is 4.1, AST 39, alkaline phosphatase is 169. Troponin is 0.045 now. Albumin 1.5, protein 4.5. ASSESSMENT AND PLAN: 1. History of hepatic cirrhosis and history of GI bleed and severe anemia and thrombocytopenia. 2. Short run of nonsustained V-tach along with elevated cardiac troponin in a patient with a significant blood dyscrasia. At this stage, I would like to titrate medication. Apparently, the patient could not tolerate high dose of Toprol at 75. For that, I will decrease it back to 25 mg twice a day with holding parameters. We will attempt to add both Aldactone and JODIE as much as vital signs will allow us. The stress test was canceled today since the patient has a stress test about a month ago. The idea of any intervention for a positive stress test is completely not in the patient's best clinical interest in view of her severe anemia and we will attempt to titrate her medication and cardiac catheterization will be indicated when clinical status improves. Increase activity. The patient can be transferred out of the unit. [place], [place] PROGRESS NOTE NAME: MAGDA LANG UNIT #: [id number] ROOM: [facility] DOCTOR: ABIMAEL GANDHI MD BIRTHDATE: [birth year] ABIMAEL GANDHI MD CM:PNTRANS 0951 1007 ABIMAEL GANDHI MD 02/28/17 1007 interface
--- NOTE | ~2017-02-21 | PR ---
[place], [place] PROGRESS NOTE NAME: MAGDA LANG UNIT #: [id number] ROOM: [facility] DOCTOR: CORINA KHALIL,MARISSA Ely BIRTHDATE: [birth year] DOS: 02/27/2017 ADDENDUM I agree with the above plans as described. We will follow the patient up clinically and adjust accordingly. MARISSA ARRIAGA MD CM:PNTRANS 1740 1851 MARISSA ARRIAGA MD 02/28/17 1253 interface
--- NOTE | ~2017-02-21 | PROC NOTE ---
[place], [place] PROCEDURE NOTE NAME: MAGDA LANG UNIT #: [id number] ROOM: [facility] DOCTOR: LEONIDES MADDOX MD BIRTHDATE: [birth year] DOS: 02/22/2017 PREOPERATIVE DIAGNOSIS: Infected MediPort (left internal jugular). POSTOPERATIVE DIAGNOSIS: Infected MediPort (left internal jugular). PROCEDURE: Removal of infected MediPort. SURGEON: Leonides Maddox MD CHRONOMETER ASSEMBLER: MS3. ANESTHESIA: MAC with local. INDICATIONS: This is a 51-year-old lady who recently underwent a MediPort placement, comes in today with line sepsis and some purulent discharge from the MediPort site, who is here for the above-mentioned procedure. The procedure and its complications were explained to the patient in detail. Complications that were discussed included, but were not limited to bleeding, prolonged pain, and damage to underlying vital structures. She agreed to proceed. DESCRIPTION OF PROCEDURE: After identifying the patient, the patient was brought to the operating suite and laid in the supine position. After IV sedation was administered, a timeout procedure was called and local anesthesia was infiltrated in the line of the previously made incision. The incision was deepened with the help of a knife and the MediPort was identified. The MediPort stay suture was cut with the help of scissors and the whole port as well as the catheter was removed in its entirety and sent for histopathological diagnosis (only the tip). Specimen of wound culture was sent for microbiology as well. Thereafter, saline was used for irrigation and hemostasis was achieved with the help of electrocautery. Thereafter, these wound edges were approximated with the help of sly and a dressing was placed. The patient tolerated the procedure well. There were no complications. Dr. Leonides Maddox, the attending surgeon, was present throughout the operating case. Leonides Maddox MD CM:PROCNOTE:PROCEDURE NOTE 1217 0142 LEONIDES MADDOX MD
--- NOTE | ~2017-02-21 | PR ---
[place], [place] PROGRESS NOTE NAME: MAGDA LANG UNIT #: [id number] ROOM: [facility] DOCTOR: CORINA KHALIL,MARISSA Ely BIRTHDATE: [birth year] DOS: 02/23/2017 ADDENDUM I agreed with above plans as described. I will follow the patient clinically and adjust accordingly. MARISSA ARRIAGA MD CM:PNTRANS 13 45 MARISSA ARRIAGA MD 02/24/17 2246 interface
--- NOTE | ~2017-02-21 | PR ---
[place], [place] PROGRESS NOTE [id number] UNIT #: [id number] ROOM: 420 DOCTOR: ABIMAEL GANDHI MD BIRTHDATE: [birth year] DOS: 03/01/2017 SUBJECTIVE: The patient is on a monitor bed out of the intensive care unit, sitting up in bed having her dinner. Denies any specific cardiac complaint. No chest pain, no chest pressure, no symptomatic palpitation. OBJECTIVE: VITAL SIGNS: Blood pressure 145/88, heart rate 80, respiratory rate of 16, temperature 97.8. NECK: Good upstroke, no bruit. HEART: S1, S2 with no rub. LUNGS: Clear to auscultation. ABDOMEN: Obese, soft, nontender, present bowel sounds. LOWER EXTREMITIES: Present edema. LABORATORY DATA: White count is 7.2, hemoglobin 7.9, platelets 82,000. Potassium 4.3, creatinine 0.6. GFR more than 60%. ASSESSMENT AND PLAN: 1. History of cirrhosis and gastrointestinal bleed with severe anemia with further deterioration of the patient's hemoglobin and hematocrit. 2. Sepsis, currently followed by . 3. Short runs of nonsustained ventricular tachycardia with elevated troponin in a patient who had a normal stress test and echocardiogram recently in January of this year. The patient continued to be asymptomatic. There was further deterioration of the patient's hemoglobin today, for that we will continue to hold on any invasive workup or any workup that lead to invasive management given the patient's clinical status including sepsis and anemia. We will attempt to maximize beta shyam in a.m. Increase patient activity today. No further cardiac testing at this time. Attempt to keep hematocrit over 30%. ABIMAEL GANDHI MD CM:PNTRANS [phone] ABIMAEL GANDHI MD 03/02/17209 interface
--- NOTE | ~2017-02-21 | PR ---
[place], [place] PROGRESS NOTE NAME: MAGDA LANG UNIT #: [id number] ROOM: [facility] DOCTOR: PETRONA NGUYEN,DECEMBER BIRTHDATE: [birth year] DOS: 02/23/2017 SUBJECTIVE: The patient is being followed for an infected MediPort. She is status post removal yesterday on the . Cultures are negative thus far from blood and tip, her MRSA screen is pending. She is on vancomycin and Merrem pending her cultures. She was having bloody purulent discharge from the MediPort site that was placed 3 weeks ago, as well as a leukocytosis at the time of admission. She is more alert and oriented today, feeling better. Her Ammonia level was normal. She denies any nausea or vomiting. Had some chronic loose stools due to her lactulose, which are changed. No abdominal pain. She does complain of bilateral lower leg pain. No cough or shortness of breath. No rash or itch. She remains jaundiced. Vital signs show temp 98.9, pulse 101, respirations 21, BP 96/51. She has had no fevers overnight. LABORATORY DATA: Vanco trough 19.9. Cultures as above. WBC is down to 9.8, platelets 98. BUN 5, creatinine 0.74. AST 42, ALT 16. CURRENT MEDICATIONS: Vancomycin, K-Phos, thiamine, K-Dur, folic acid, Merrem, Xifaxan, Remeron, Cephulac, Prilosec, Senokot, Gay. PHYSICAL EXAMINATION: GENERAL: A 51-year-old female, in no acute distress. HEAD, EYES, EARS, NOSE AND THROAT: Normocephalic. No thrush. NECK: Supple. LUNGS: Clear to auscultation bilaterally. Respirations even and unlabored. HEART: Regular rhythm. No murmur appreciated. ABDOMEN: Soft, distended, nontender. Positive bowel sounds. EXTREMITIES: +1 edema of bilateral lower extremities. No deformity. SKIN: Warm, dry, jaundiced. ASSESSMENT: Infected MediPort, status post removal on 02/22, cultures pending. PLAN: Continue Merrem and vancomycin pending cultures. DECEMBER WENDY RUSS [place], [place] PROGRESS NOTE NAME: RICKEYMAGDA A UNIT #: [id number] ROOM: [facility] DOCTOR: PETRONA NGUYEN BIRTHDATE: [birth year] MARISSA ARRIAGA MD CM:PNMANUEL [phone] DECEMBER PETRONA NGUYEN 02/25/17 0953 interface
--- NOTE | ~2017-02-21 | CON ---
[place], [place] REPORT OF CONSULTATION NAME: MAGDA LANG UNIT #: [id number] ROOM: [facility]3 DOCTOR: PETRONA NGUYEN,DECEMBER BIRTHDATE: [birth year] DOS: 02/22/2017 HISTORY OF PRESENT ILLNESS: The patient is a 51-year-old female who was admitted with bloody purulent discharge from her MediPort site. She was hospitalized approximately 3 weeks ago for urinary tract infection. She had VRE at that time. She went to surgery this morning, had her MediPort removed. Blood cultures are pending. The MediPort tip culture is pending. She was started on vancomycin and Merrem at the time of admission. ID was consulted for infected MediPort. She had abdominal ultrasound that demonstrates mild ascites. Chest x-ray which showed no active disease. The patient herself is very lethargic and unable to give any history. The nurse states she was more alert this morning after her surgery. PAST MEDICAL HISTORY: Includes alcoholic cirrhosis, esophageal varices, GI bleeding, hypertension, jaundice, anemia, pancreatitis, vitamin D deficiency, thrombocytopenia. She is status post a TIPS procedure, right knee surgery. SOCIAL HISTORY: Nonsmoker, reformed drinks, stopped drinking reportedly 11/22/2016, prior to that she drank approximately 12-pack a day. No illicit drug use per the chart. FAMILY MEDICAL HISTORY: Father , cause unknown. Mother is alive at the age of 85. ALLERGIES: Include penicillin, which causes hives. MEDICATIONS: Include vitamin D, thiamine, K-Dur, folic acid, vancomycin, norepinephrine, Merrem, Xifaxan, Remeron, lactulose, Prilosec, Senokot. LABORATORY DATA: WBC is 15.9, platelets 150. BUN 6, creatinine 0.72, AST 49, ALT 17, total bilirubin 15. CK 55. C-reactive protein 0.68. REVIEW OF SYSTEMS: Unable to obtain from the patient due to her lethargy. No emesis or diarrhea per nursing. She has been afebrile since admission. PHYSICAL EXAMINATION: VITAL SIGNS: Show temperature 98.0, pulse 85, respirations 16, BP 133/53: GENERAL: Lethargic 51-year-old female, in no acute distress. HEAD, EYES, EARS, NOSE AND THROAT: Normocephalic. No visible thrush. NECK: Seems supple. LUNGS: Few rhonchi. Respirations even and unlabored. HEART: Regular rhythm. No murmur appreciated. ABDOMEN: Soft, mild distention, seems nontender. Positive bowel sounds. EXTREMITIES: +2 edema bilateral lower extremities. No deformity or cyanosis. CHEST: Right chest dressing dry and intact, status post removal of her MediPort. SKIN: Warm, dry, quite jaundiced, free of rashes. ASSESSMENT: Infected MediPort ____ inserted 3 weeks ago. All cultures are currently pending. [place], [place] REPORT OF CONSULTATION NAME: MAGDA LANG UNIT #: [id number] ROOM: [facility] DOCTOR: PETRONA NGUYENDECEMBER BIRTHDATE: [birth year] PLAN: We will continue the Merrem and vancomycin pending her cultures and then narrow antibiotics accordingly. I did research, there are no prior positive cultures. She did have her urine with VRE. She needs to have ammonia level done now given her lethargy. Case discussed with Dr. Marissa Arriaga. EVONNE RUSS CNP MARISSA ARRIAGA MD CM:CONSTR:REPORT OF CONSULTATION 2083 02/22/17 6374 interface
--- NOTE | ~2017-02-21 | PR ---
[place], [place] PROGRESS NOTE NAME: [facility]DA LANG [facility] [id number] UNIT #: [id number] ROOM: 420 DOCTOR: OKSANA KHALILABIMAEL BIRTHDATE: [birth year] DOS: 02/28/2017 [facility] Cardiology patient. SUBJECTIVE: The patient is in the intensive care unit, sitting up in bed. Denies any specific cardiac complaint. No chest pain, no chest pressure, no heaviness, no tightness. No jaw pain, no back pain. No symptomatic palpitation. No recurrent nonsustained V-tach anymore. OBJECTIVE: VITAL SIGNS: Blood pressure 89/40, heart rate 77, respiratory rate of 16, temperature 98.1. NECK: Good upstroke, no bruit. HEART: S1, S2 with holosystolic murmur in the left upper sternal border. LUNGS: Clear to auscultation. No wheezing, no rales. ABDOMEN: Obese, nontender, present bowel sounds. LOWER EXTREMITIES: There is mild 1-2/4 edema. LABORATORY DATA: White count 8.7, hemoglobin 9.1, hematocrit 27.6, platelets 82,000. Potassium 4.4, creatinine 0.7, GFR more than 60%. ASSESSMENT AND PLAN: 1. History of severe sepsis and incisional infection that is followed by ____ along with leukocytosis. 2. Severe anemia and thrombocytopenia in a patient who had a normal stress test and echocardiogram recently in January of this year with Dr. Silva. 3. Cirrhosis with jaundice. 4. History of hypertension with current evidence of hypotension requiring adjustment of the patient's beta-shyam from 75 b.i.d. to 25 twice a day. 5. Stress test and echocardiogram, which was scheduled by Dr. Sanchez were put on hold for now since the patient had a recent 2 tests that were normal. The patient does not have any specific cardiac complaint. In view of her severe anemia and her current sepsis, there is no option for any cardiac intervention should the stress test be positive. We would pursue medical management for now with attempt to titrate beta-shyam. In the meantime, keeping potassium over 4 and magnesium over 2 is advised. We will watch the patient carefully for any change in symptoms, and then, we will change our strategy quickly. [place], [place] PROGRESS NOTE NAME: MAGDA LANG UNIT #: [id number] ROOM: 420 DOCTOR: ABIMAEL GANDHI MD BIRTHDATE: [birth year] ABIMAEL GANDHI MD CM:EVERTON [phone] 1 ABIMAEL GANDHI MD 03/02/17 0241 interface
--- NOTE | ~2017-02-21 | PR ---
[place], [place] PROGRESS NOTE NAME: MAGDA LANG UNIT #: [id number] ROOM: 420 DOCTOR: ABIMAEL GANDHI MD BIRTHDATE: [birth year] DOS: SUBJECTIVE: The patient is completely flat in bed, does not appear in distress, sleeping, but easily arousable. Denies any specific cardiac complaint. No chest pain. No symptomatic palpitation. OBJECTIVE: VITAL SIGNS: Blood pressure 108/50, heart rate 88, respiratory rate of 14, temperature currently 98.7. NECK: Good upstroke, no bruit. HEART: S1, S2 with holosystolic murmur at the left sternal border. LUNGS: Clear to auscultation. EXTREMITIES: Mild 1-2/4 edema bilateral. LABORATORY DATA: White count 7.1, hemoglobin is still 7.9, platelets 61,000. Potassium 4.3, creatinine 0.6. ASSESSMENT AND PLAN: History of short runs of nonsustained VT that was completely asymptomatic in a patient with severe anemia, further dropping in hemoglobin and presentation with sepsis. As detailed in my previous note, we will continue to maximize medical treatment, which vital signs will prevent any further titrations. The patient has gone on to increased activity and the patient can be discharged home from our point of view. We will be seeing patient in an outpatient clinic within 1-2 weeks with followup with Dr. Rachel or Dr. Sanchez. ABIMAEL GANDHI MD CM:PNTRANS [phone] ABIMAEL GANDHI MD 03/03/17 0615 interface
--- NOTE | ~2017-02-21 | PR ---
[place], [place] PROGRESS NOTE NAME: MAGDA LANG UNIT #: [id number] [facility] DOCTOR: PETRONA NGUYEN,DECEMBER BIRTHDATE: [birth year] DOS: 02/24/2017 SUBJECTIVE: The patient is doing much better today. She is much more alert. Denies any nausea or vomiting. Does have chronic loose stools with her lactulose. No pain or shortness of breath. No rash or itch. She has been afebrile. She was tachycardic earlier and had a V/Q scan that is reviewed, did not demonstrate a likely PE. She had a CT angiogram ordered, but her IV infiltrated her tip cultures and blood cultures remained sterile. MRSA screen is negative. Cultures from the MediPort site are sterile. Again, she is much more alert and I am able to get a better history. She states that she had bloody pus draining from the site and it looked pretty bad for a week prior to admission. She was not on any antibiotics prior to admission and had not seen a physician as an outpatient. CURRENT MEDICATIONS: Include vancomycin, K-Phos, thiamine, K-Dur, folic acid, Merrem, Xifaxan, Remeron, lactulose, Prilosec, Senokot, [place]. PHYSICAL EXAMINATION: VITAL SIGNS: Show temp of 98.0, pulse 107, respirations 20, BP 110/62. GENERAL: Alert and oriented, 51-year-old female, in no acute distress. HEAD, EYES, EARS, NOSE AND THROAT: Normocephalic. No thrush. LUNGS: Clear to auscultation bilaterally. Respirations even and unlabored. HEART: Regular rhythm. No murmur appreciated. Left chest incision is well approximated with sly. No discharge or erythema. ABDOMEN: Distended with ascites, soft. EXTREMITIES: +2 to 3 edema bilateral lower extremities. SKIN: Warm, dry, jaundiced, free of rashes. LABORATORY DATA: WBCs 10.4, platelets 88. BUN 5, creatinine 0.71, AST 46, ALT 18, total bilirubin 18.6, ammonia 16. ASSESSMENT: MediPort infection, culture negative thus far. PLAN: We will continue the meropenem and vancomycin. At this point if the cultures remain sterile, we will be unable to narrow the antibiotics. I would give her 2 weeks of empiric IV antibiotics from the time of the MediPort removal. EVONNE RUSS CNP [place], [place] PROGRESS NOTE NAME: MAGDA LANG UNIT #: [id number] ROOM: [facility] DOCTOR: PETRONA NGUYEN BIRTHDATE: [birth year] MARISSA ARRIAGA MD CM:PNTRANS [phone] EVONNE RUSS CNP 02/25/17 0953 interface
--- NOTE | ~2017-02-21 | PR ---
[place], [place] PROGRESS NOTE NAME: MAGDA LANG UNIT #: [id number] [facility] DOCTOR: PETRONA NGUYEN,DECEMBER BIRTHDATE: [birth year] DOS: SUBJECTIVE: The patient was admitted for removal of an infected MediPort. She had obvious blood and pus at this site and had been draining since it was inserted approximately 4 weeks ago. All of her cultures, however, are negative including tip blood and the MediPort pocket. I have discussed this with the lab. She is alert, oriented, afebrile, good appetite. Denies any nausea, vomiting, diarrhea. No rash or itch. No cough or shortness of breath. She has been having some cardiac issues and is going for stress test tomorrow. LABORATORY DATA: WBC is 8.1, platelets 92, BUN 5, creatinine 0.76. AST 39, ALT 14. PHYSICAL EXAMINATION: VITAL SIGNS: Temperature 98.1, pulse 73, respirations 18, BP 99/52. GENERAL: A 51-year-old female, in no acute distress, jaundiced. HEAD, EYES, EARS, NOSE AND THROAT: Normocephalic, no thrush. LUNGS: Clear to auscultation bilaterally. Respirations even and unlabored. HEART: Regular rhythm. No murmur appreciated. ABDOMEN: Soft, nontender, distended with ascites. EXTREMITIES: +2 edema bilateral lower extremities. No deformity. ASSESSMENT: Infected MediPort status post removal on February 21. At this point, I would recommend continuing empiric antibiotics with Merrem and vancomycin for a total of 2 weeks from the date of the removal. Case discussed with Dr. Marissa Arriaga. DECEMBER WENDY RUSS MARISSA ARRIAGA MD CM:PNTRANS [phone] DECEMBER PETRONA NGUYEN 02/28/17 0024 interface
--- NOTE | ~2017-02-21 | O ---
[place], [place] OPERATIVE NOTE NAME: MAGDA LANG UNIT #: [id number] ROOM: [facility] DOCTOR: ОЛЬГА AARON MDHASLETTDANYA BIRTHDATE: [birth year] DOS: GASTROENDOSCOPIC REPORT A 51-year-old patient who is known to the service because of cirrhosis of the liver and sequela of it, etiology of that has been ETOH. The patient has been in [facility] with esophageal varicosity, band ligation, history of Osmar placement and management of upper GI bleeding, as has been dictated in the recent past consultation. The patient had a panel of blood work. Blood cultures were negative. Serum ammonia and CBC differential has been obtained. White blood cell was 16. H and H of 9 and 26. Portal line was infected, that has been removed and cultured. Lactic acid 2.0. Chest x-ray followups have been done. PAST MEDICAL HISTORY: Associated with cirrhosis, associated with portal hypertension, septic portal line, alcohol withdrawal, seizure history, pancreatitis, thrombocytopenia, portal hypertension. PAST SURGICAL HISTORY: Central line placement, right knee. SOCIAL HISTORY: History of nonsmoker; however, heavy alcohol consumption. ALLERGIES: PENICILLIN. FAMILY HISTORY: Noncontributory. MEDICATIONS: List has been reviewed. The patient has been on Xifaxan, lactulose, omeprazole, spironolactone, ____, all supportive cares. REVIEW OF SYSTEMS: In general, HEENT: Denies double vision, blurred vision. RESPIRATORY: With some shortness of breath. CARDIOVASCULAR: Denies chest pain. DIGESTIVE SYSTEM: No hematemesis, no hematochezia, history of cirrhosis, portal hypertension, esophageal varicosity, previous GI bleed. PHYSICAL EXAMINATION: VITAL SIGNS: Stable. HEENT: Head normocephalic, nontraumatic. Mouth and buccal mucosa benign. NECK: Supple, no thyromegaly. CHEST: Symmetric anatomy, equal expansion. No wheeze, no rhonchi. HEART: Normal sinus rhythm, no gallop, no murmur. ABDOMEN: 4+ ascites. Bowel sounds present. EXTREMITIES: 2+ pedal edema bilaterally. NEUROLOGIC: Alert and oriented. No asterixis. No encephalopathy. IMPRESSION: Cirrhosis and sequela, thrombocytopenia, esophageal varicosity, portal hypertension, cirrhosis with ETOH etiology. Other adjunctive diagnoses as outlined above. Abnormal LFTs, all has been recognized. Septic portal line, which has been removed, antibiotic in effect, all has been noticed. She is on [place], [place] OPERATIVE NOTE NAME: MAGDA LANG UNIT #: [id number] ROOM: [facility] DOCTOR: AGNIESZKA KHALIL,CHERRI BIRTHDATE: [birth year] lactulose, Xifaxan and antibiotic as well. She recently has stopped alcohol since November. She would be advised to followup with [facility] with liver service in case she can move off the list with basic complaints and complications, so that her record would be available to them. Labs reviewed. Records reviewed. Urine culture, no bacteria. Blood culture negative. INR 1.6. Latest CBC: White blood cell has improved to 9.8, H and H have improved to 6.9 and 19. With what is going on here, we have evidence of hematemesis or hematochezia. We are going to observe this H and H with a repeat of H and H this afternoon 4:00 p.m. If it is downgoing, definitive transfusion and observation, anyways she needs transfusion and she has already got 1 unit, and in case this is an issue of concern, we are organizing EGD plus band ligation if necessary. In all, her blood platelets has been 98 at such time. If we make such a decision for band ligation of esophageal varicosity on Tuesday, we will make sure that she gets 6-pack units of platelets 2 hours prior to her EGD, band ligation. So, we will keep units of 6 packs ready through the blood bank by informing them for the Tuesday in case it becomes necessary. CHERRI AARON MD CM:OPRECORD:OPERATIVE NOTE [phone] CHERRI AARON MD 02/24/17 0339 interface
[2017-02-21 13:34] LABS: BASO # 0.1 10*3/uL (0.0-0.1); BASO % 0.3 % (0.0-1.0); EOS # 0.3 10*3/uL (0.0-0.4); EOS % 1.8 % (1.0-4.0); IG # 0.3 10*3/uL (0.0-0.1); LYMPH # 1.1 10*3/uL (1.3-4.4); LYMPH % 6.6 % (27.0-41.0); MEAN CELL VOLUME 96.7 fl (81.0-99.0); MEAN CORPUSCULAR HGB 33.5 pg (27.0-31.0); MEAN CORPUSCULAR HGB CONC 34.6 g/dl (33.0-37.0); MEAN PLATELET VOLUME 12.9 fl (9.6-12.3); MONO # 1.2 10*3/uL (0.1-1.0); MONO % 7.4 % (3.0-9.0); NEUT # 13.5 10*3/uL (2.3-7.9); NEUT % 82.1 % (47.0-73.0); PLATELET COUNT AUTOMATED 121 10*3/uL (130-400); RED BLOOD COUNT 2.69 10*6/uL (4.10-5.10); RED CELL DISTRI WIDTH 17.6 % (0-14.5); WHITE BLOOD COUNT 16.5 10*3/uL (4.8-10.8)
[2017-02-21 13:43] LABS: INTERNATIONAL NORM RATIO 1.6 (2.0-3.5); PROTHROMBIN TIME 17.3 SECONDS (9.0-12.4)
[2017-02-21 13:50] LABS: ALBUMIN 1.9 gm/dl (3.1-4.5); ALKALINE PHOSPHATASE 231 U/L (45-117); BILIRUBIN, TOTAL 16.7 mg/dl (0.2-1.0); BUN 7 mg/dl (7-24); C-REACTIVE PROTEIN 0.71 MG/DL (0-0.3); CARBON DIOXIDE 24 mmol/L (21-32); CHLORIDE 89 mmol/L (98-107); CKMB 2.2 ng/ml (0.5-3.6); CPK 58 U/L (26-192); EST GLOM FILT AFRICAN AMERICAN > 60 ml/min; GLUCOSE 92 mg/dL (65-99); MAGNESIUM 1.8 mg/dL (1.5-2.1); POTASSIUM 2.7 mmol/L (3.5-5.1); SGOT/AST 57 IU/L (3-35); SGPT/ALT 23 U/L (12-78); SODIUM 126 mmol/L (136-145)
[2017-02-21 13:52] LABS: TROPONIN I 0.024 ng/ml (<0.045)
[2017-02-21 14:06] LABS: TOTAL PROTEIN 5.9 gm/dL (6.4-8.2)
[2017-02-21 18:07] LABS: BILIRUBIN, TOTAL 16.6 mg/dl (0.2-1.0)
[2017-02-21 18:09] LABS: CKMB 2.1 ng/ml (0.5-3.6); TROPONIN I 0.022 ng/ml (<0.045)
[2017-02-21] MEDS ORDERED: SENNA8.6 MG PO (19:23)
[2017-02-21 20:07] LABS: BILIRUBIN, DIRECT 12.3 mg/dL (0.0-0.2); BILIRUBIN, INDIRECT 4.3 (0.2-0.8)
[2017-02-21 21:15] LABS: BILIRUBIN 3+ (NEGATIVE); BLOOD NEGATIVE (NEGATIVE); CLARITY CLEAR (CLEAR); COLOR YELLOW (YELLOW); GLUCOSE NEGATIVE (NEGATIVE); KETONE TRACE (NEGATIVE); LEUKO ESTERASE NEGATIVE (NEGATIVE); NITRITE NEGATIVE (NEGATIVE); PH 6.5 (5.0-9.0); PROTEIN NEGATIVE (NEGATIVE); UROBILINOGEN 0.2 E.U./dl (0.2-1.0)
[2017-02-21 21:27] LABS: BACTERIA 1+; EPITHELIAL CELLS TNTC; RBC 0-2 rbc/hpf (0-2); URINE REFLEX COMMENT NO (NO)
[2017-02-22] VITALS (84 sets, daily range): BP systolic 63–230; BP diastolic 25–69
[2017-02-22 00:54] LABS: CKMB 2.8 ng/ml (0.5-3.6); TROPONIN I 0.015 ng/ml (<0.045)
[2017-02-22 06:22] LABS: HEMATOCRIT 23.9 % (37.0-47.0); HEMOGLOBIN 8.4 g/dl (12.0-16.0); MEAN CELL VOLUME 96.8 fl (81.0-99.0); MEAN CORPUSCULAR HGB CONC 35.1 g/dl (33.0-37.0); MEAN PLATELET VOLUME 12.6 fl (9.6-12.3); PLATELET COUNT AUTOMATED 150 10*3/uL (130-400); RED BLOOD COUNT 2.47 10*6/uL (4.10-5.10); RED CELL DISTRI WIDTH 17.3 % (0-14.5); WHITE BLOOD COUNT 15.9 10*3/uL (4.8-10.8)
[2017-02-22 06:35] LABS: CKMB 2.6 ng/ml (0.5-3.6); TROPONIN I 0.023 ng/ml (<0.045)
[2017-02-22 06:48] LABS: ALBUMIN 1.6 gm/dl (3.1-4.5); ALKALINE PHOSPHATASE 189 U/L (45-117); BASOPHIL # 0.2 10*3/uL (0-0.1); BASOPHILS 1 % (0-1); BUN 6 mg/dl (7-24); CARBON DIOXIDE 23 mmol/L (21-32); CHLORIDE 96 mmol/L (98-107); EOSINOPHIL # 0.5 10*3/uL (0-0.4); EOSINOPHILS 3 % (1-4); EST GLOM FILT AFRICAN AMERICAN > 60 ml/min; GLUCOSE 112 mg/dL (65-99); HDL CHOLESTEROL 13 mg/dl (40-60); LYMPHOCYTE # 1.1 10*3/uL (1.3-4.4); MAGNESIUM 1.8 mg/dL (1.5-2.1); MONOCYTE # 0.5 10*3/uL (0.1-1.0); MYELOCYTES 2 % (0-0); NEUTROPHIL # 13.4 10*3/uL (2.3-7.9); NEUTROPHILS 84 % (47-73); SGOT/AST 49 IU/L (3-35); SGPT/ALT 17 U/L (12-78); SODIUM 129 mmol/L (136-145); TOTAL CELLS COUNTED 100 #CELLS; TRIGLYCERIDES 93 mg/dl (<150); VLDL CHOLESTEROL 19 mg/dL (6-40)
[2017-02-22 06:49] LABS: ACANTHOCYTES FEW; BURR CELLS MODERATE; POLYCHROMASIA SLIGHT; SCHISTOCYTES FEW
[2017-02-22 06:50] LABS: PLATELET SUFFICIENCY NORMAL (NORMAL)
[2017-02-22 06:57] LABS: CHOLESTEROL < 50 mg/dL (<200); LDL CHOLESTEROL 18 mg/dL (9-159); POTASSIUM 3.7 mmol/L (3.5-5.1)
[2017-02-22 06:59] LABS: ESTIMATED AVERAGE GLUCOSE 54; HEMOGLOBIN A1c < 3.5 % (4.8-5.6)
[2017-02-22 07:10] LABS: FOLIC ACID 8.38 ng/mL (>5.38); VITAMIN D, 25-HYDROXY 23.2 ng/mL (30-100)
[2017-02-23] VITALS (37 sets, daily range): BP systolic 87–141; BP diastolic 38–68
[2017-02-23 06:01] LABS: ALBUMIN 1.7 gm/dl (3.1-4.5); ALKALINE PHOSPHATASE 161 U/L (45-117); BUN 5 mg/dl (7-24); CARBON DIOXIDE 21 mmol/L (21-32); CHLORIDE 107 mmol/L (98-107); EST GLOM FILT AFRICAN AMERICAN > 60 ml/min; GLUCOSE 115 mg/dL (65-99); MAGNESIUM 1.9 mg/dL (1.5-2.1); PHOSPHOROUS 2.1 mg/dL (2.5-4.9); POTASSIUM 3.7 mmol/L (3.5-5.1); SGOT/AST 42 IU/L (3-35); SGPT/ALT 16 U/L (12-78); SODIUM 138 mmol/L (136-145); TOTAL PROTEIN 4.7 gm/dL (6.4-8.2)
[2017-02-23 06:09] LABS: BASO % 0.4 % (0.0-1.0); EOS # 0.3 10*3/uL (0.0-0.4); EOS % 3.1 % (1.0-4.0); HEMATOCRIT 19.8 % (37.0-47.0); HEMOGLOBIN 6.5 g/dl (12.0-16.0); IG # 0.3 10*3/uL (0.0-0.1); LYMPH # 1.1 10*3/uL (1.3-4.4); LYMPH % 11.5 % (27.0-41.0); MEAN CELL VOLUME 101.5 fl (81.0-99.0); MEAN CORPUSCULAR HGB 33.3 pg (27.0-31.0); MEAN CORPUSCULAR HGB CONC 32.8 g/dl (33.0-37.0); MEAN PLATELET VOLUME 12.6 fl (9.6-12.3); MONO # 1.1 10*3/uL (0.1-1.0); MONO % 11.6 % (3.0-9.0); NEUT # 6.9 10*3/uL (2.3-7.9); NEUT % 70.3 % (47.0-73.0); PLATELET COUNT AUTOMATED 98 10*3/uL (130-400); RED BLOOD COUNT 1.95 10*6/uL (4.10-5.10); RED CELL DISTRI WIDTH 17.8 % (0-14.5); WHITE BLOOD COUNT 9.8 10*3/uL (4.8-10.8)
[2017-02-23 07:59] LABS: INTERNATIONAL NORM RATIO 1.6 (2.0-3.5); PROTHROMBIN TIME 17.4 SECONDS (9.0-12.4)
[2017-02-23 16:02] LABS: BASO # 0.1 10*3/uL (0.0-0.1); BASO % 0.5 % (0.0-1.0); EOS # 0.4 10*3/uL (0.0-0.4); EOS % 3.3 % (1.0-4.0); HEMATOCRIT 24.3 % (37.0-47.0); HEMOGLOBIN 8.2 g/dl (12.0-16.0); IG # 0.2 10*3/uL (0.0-0.1); LYMPH # 1.2 10*3/uL (1.3-4.4); LYMPH % 10.5 % (27.0-41.0); MEAN CORPUSCULAR HGB 31.5 pg (27.0-31.0); MEAN CORPUSCULAR HGB CONC 33.7 g/dl (33.0-37.0); MEAN PLATELET VOLUME 12.1 fl (9.6-12.3); MONO # 1.2 10*3/uL (0.1-1.0); MONO % 10.8 % (3.0-9.0); NEUT # 8.2 10*3/uL (2.3-7.9); NEUT % 72.8 % (47.0-73.0); PLATELET COUNT AUTOMATED 96 10*3/uL (130-400); RED CELL DISTRI WIDTH 21.2 % (0-14.5); WHITE BLOOD COUNT 11.3 10*3/uL (4.8-10.8)
[2017-02-23 16:04] LABS: MEAN CELL VOLUME 93.5 fl (81.0-99.0)
[2017-02-24] VITALS: BP 111/48; BP 114/53
[2017-02-24 04:00] VITALS: BP 110/58
[2017-02-24 05:47] LABS: ALBUMIN 1.7 gm/dl (3.1-4.5); ALKALINE PHOSPHATASE 182 U/L (45-117); BUN 5 mg/dl (7-24); CARBON DIOXIDE 22 mmol/L (21-32); CHLORIDE 106 mmol/L (98-107); EST GLOM FILT AFRICAN AMERICAN > 60 ml/min; GLUCOSE 96 mg/dL (65-99); MAGNESIUM 1.9 mg/dL (1.5-2.1); POTASSIUM 3.7 mmol/L (3.5-5.1); SGOT/AST 46 IU/L (3-35); SGPT/ALT 18 U/L (12-78); SODIUM 136 mmol/L (136-145); TOTAL PROTEIN 4.9 gm/dL (6.4-8.2)
[2017-02-24 05:54] LABS: BILIRUBIN, TOTAL 18.6 mg/dl (0.2-1.0)
[2017-02-24 06:05] LABS: BASO # 0.1 10*3/uL (0.0-0.1); BASO % 0.7 % (0.0-1.0); EOS # 0.4 10*3/uL (0.0-0.4); EOS % 3.4 % (1.0-4.0); HEMATOCRIT 24.8 % (37.0-47.0); HEMOGLOBIN 8.3 g/dl (12.0-16.0); IG # 0.2 10*3/uL (0.0-0.1); LYMPH # 1.4 10*3/uL (1.3-4.4); LYMPH % 13.7 % (27.0-41.0); MEAN CELL VOLUME 94.3 fl (81.0-99.0); MEAN CORPUSCULAR HGB 31.6 pg (27.0-31.0); MEAN CORPUSCULAR HGB CONC 33.5 g/dl (33.0-37.0); MEAN PLATELET VOLUME 12.1 fl (9.6-12.3); MONO # 0.9 10*3/uL (0.1-1.0); MONO % 8.6 % (3.0-9.0); NEUT # 7.5 10*3/uL (2.3-7.9); NEUT % 71.7 % (47.0-73.0); PLATELET COUNT AUTOMATED 88 10*3/uL (130-400); RED BLOOD COUNT 2.63 10*6/uL (4.10-5.10); RED CELL DISTRI WIDTH 22.3 % (0-14.5); WHITE BLOOD COUNT 10.4 10*3/uL (4.8-10.8)
[2017-02-24 08:00] VITALS: BP 120/60
[2017-02-24 12:00] VITALS: BP 110/62
[2017-02-24 16:00] VITALS: BP 114/55
[2017-02-24 20:00] VITALS: BP 115/49
[2017-02-25] VITALS (13 sets, daily range): BP systolic 105–136; BP diastolic 50–74
[2017-02-25 05:28] LABS: ALBUMIN 1.7 gm/dl (3.1-4.5); ALKALINE PHOSPHATASE 174 U/L (45-117); BILIRUBIN, TOTAL 14.8 mg/dl (0.2-1.0); BUN 6 mg/dl (7-24); CARBON DIOXIDE 21 mmol/L (21-32); CHLORIDE 106 mmol/L (98-107); EST GLOM FILT AFRICAN AMERICAN > 60 ml/min; GLUCOSE 102 mg/dL (65-99); MAGNESIUM 1.8 mg/dL (1.5-2.1); PHOSPHOROUS 3.5 mg/dL (2.5-4.9); POTASSIUM 4.1 mmol/L (3.5-5.1); SGOT/AST 38 IU/L (3-35); SGPT/ALT 13 U/L (12-78); SODIUM 137 mmol/L (136-145); TOTAL PROTEIN 4.6 gm/dL (6.4-8.2)
[2017-02-25 06:00] LABS: BASO # 0.1 10*3/uL (0.0-0.1); BASO % 0.7 % (0.0-1.0); EOS # 0.4 10*3/uL (0.0-0.4); EOS % 3.7 % (1.0-4.0); HEMATOCRIT 22.7 % (37.0-47.0); HEMOGLOBIN 7.8 g/dl (12.0-16.0); IG # 0.3 10*3/uL (0.0-0.1); LYMPH # 1.2 10*3/uL (1.3-4.4); LYMPH % 12.2 % (27.0-41.0); MEAN CORPUSCULAR HGB 32.6 pg (27.0-31.0); MEAN CORPUSCULAR HGB CONC 34.4 g/dl (33.0-37.0); MEAN PLATELET VOLUME 12.3 fl (9.6-12.3); MONO # 0.9 10*3/uL (0.1-1.0); MONO % 9.7 % (3.0-9.0); NEUT # 6.9 10*3/uL (2.3-7.9); NEUT % 71.1 % (47.0-73.0); PLATELET COUNT AUTOMATED 83 10*3/uL (130-400); RED BLOOD COUNT 2.39 10*6/uL (4.10-5.10); RED CELL DISTRI WIDTH 21.7 % (0-14.5); WHITE BLOOD COUNT 9.7 10*3/uL (4.8-10.8)
[2017-02-26] VITALS: BP 119/66
[2017-02-26 04:00] VITALS: BP 127/65
[2017-02-26 05:57] LABS: BASO # 0.1 10*3/uL (0.0-0.1); BASO % 0.7 % (0.0-1.0); EOS # 0.4 10*3/uL (0.0-0.4); EOS % 4.1 % (1.0-4.0); HEMATOCRIT 27.4 % (37.0-47.0); HEMOGLOBIN 9.2 g/dl (12.0-16.0); IG # 0.2 10*3/uL (0.0-0.1); LYMPH % 11.2 % (27.0-41.0); MEAN CELL VOLUME 94.5 fl (81.0-99.0); MEAN CORPUSCULAR HGB 31.7 pg (27.0-31.0); MEAN CORPUSCULAR HGB CONC 33.6 g/dl (33.0-37.0); MEAN PLATELET VOLUME 11.9 fl (9.6-12.3); MONO # 0.8 10*3/uL (0.1-1.0); MONO % 9.5 % (3.0-9.0); NEUT # 6.5 10*3/uL (2.3-7.9); NEUT % 72.6 % (47.0-73.0); PLATELET COUNT AUTOMATED 96 10*3/uL (130-400); RED CELL DISTRI WIDTH 21.3 % (0-14.5); WHITE BLOOD COUNT 8.9 10*3/uL (4.8-10.8)
[2017-02-26 08:00] VITALS: BP 128/67
[2017-02-26 09:09] LABS: PHOSPHOROUS 3.5 mg/dL (2.5-4.9)
[2017-02-26 09:11] LABS: ALBUMIN 1.8 gm/dl (3.1-4.5); ALKALINE PHOSPHATASE 200 U/L (45-117); BILIRUBIN, TOTAL 16.1 mg/dl (0.2-1.0); BUN 6 mg/dl (7-24); CARBON DIOXIDE 18 mmol/L (21-32); CHLORIDE 104 mmol/L (98-107); CPK 31 U/L (26-192); EST GLOM FILT AFRICAN AMERICAN > 60 ml/min; GLUCOSE 106 mg/dL (65-99); POTASSIUM 3.6 mmol/L (3.5-5.1); SGOT/AST 43 IU/L (3-35); SGPT/ALT 15 U/L (12-78); SODIUM 136 mmol/L (136-145); TOTAL PROTEIN 5.1 gm/dL (6.4-8.2)
[2017-02-26 09:12] LABS: CKMB 1.7 ng/ml (0.5-3.6)
[2017-02-26 09:17] LABS: TROPONIN I 0.065 ng/ml (<0.045)
[2017-02-26 12:00] VITALS: BP 96/55
[2017-02-26 16:00] VITALS: BP 94/49
[2017-02-26 20:00] VITALS: BP 102/57
[2017-02-27] VITALS: BP 101/51
[2017-02-27 04:00] VITALS: BP 104/45
[2017-02-27 05:34] LABS: ALBUMIN 1.5 gm/dl (3.1-4.5); ALKALINE PHOSPHATASE 169 U/L (45-117); BILIRUBIN, TOTAL 14.1 mg/dl (0.2-1.0); BUN 5 mg/dl (7-24); CARBON DIOXIDE 21 mmol/L (21-32); CHLORIDE 107 mmol/L (98-107); EST GLOM FILT AFRICAN AMERICAN > 60 ml/min; GLUCOSE 109 mg/dL (65-99); POTASSIUM 4.2 mmol/L (3.5-5.1); SGOT/AST 39 IU/L (3-35); SGPT/ALT 14 U/L (12-78); SODIUM 139 mmol/L (136-145); TOTAL PROTEIN 4.5 gm/dL (6.4-8.2)
[2017-02-27 05:55] LABS: BASO # 0.1 10*3/uL (0.0-0.1); BASO % 0.9 % (0.0-1.0); EOS # 0.4 10*3/uL (0.0-0.4); EOS % 5.1 % (1.0-4.0); HEMOGLOBIN 9.1 g/dl (12.0-16.0); IG # 0.1 10*3/uL (0.0-0.1); LYMPH # 1.1 10*3/uL (1.3-4.4); LYMPH % 13.5 % (27.0-41.0); MEAN CELL VOLUME 95.1 fl (81.0-99.0); MEAN CORPUSCULAR HGB CONC 33.7 g/dl (33.0-37.0); MEAN PLATELET VOLUME 11.2 fl (9.6-12.3); MONO # 0.7 10*3/uL (0.1-1.0); NEUT # 5.7 10*3/uL (2.3-7.9); PLATELET COUNT AUTOMATED 92 10*3/uL (130-400); RED BLOOD COUNT 2.84 10*6/uL (4.10-5.10); RED CELL DISTRI WIDTH 20.9 % (0-14.5); WHITE BLOOD COUNT 8.1 10*3/uL (4.8-10.8)
[2017-02-27 08:00] VITALS: BP 99/43
[2017-02-27 12:00] VITALS: BP 99/52
[2017-02-27 16:00] VITALS: BP 108/50
[2017-02-27 20:00] VITALS: BP 107/65
[2017-02-28 00:03] VITALS: BP 112/54
[2017-02-28 04:00] VITALS: BP 104/53
[2017-02-28 05:40] LABS: BUN 5 mg/dl (7-24); CARBON DIOXIDE 22 mmol/L (21-32); CHLORIDE 108 mmol/L (98-107); EST GLOM FILT AFRICAN AMERICAN > 60 ml/min; GLUCOSE 107 mg/dL (65-99); POTASSIUM 4.4 mmol/L (3.5-5.1); SODIUM 139 mmol/L (136-145)
[2017-02-28 06:10] LABS: BASO # 0.1 10*3/uL (0.0-0.1); BASO % 0.8 % (0.0-1.0); EOS # 0.4 10*3/uL (0.0-0.4); HEMATOCRIT 27.6 % (37.0-47.0); HEMOGLOBIN 9.1 g/dl (12.0-16.0); IG # 0.1 10*3/uL (0.0-0.1); LYMPH # 1.1 10*3/uL (1.3-4.4); LYMPH % 12.2 % (27.0-41.0); MEAN CELL VOLUME 96.8 fl (81.0-99.0); MEAN CORPUSCULAR HGB 31.9 pg (27.0-31.0); MEAN PLATELET VOLUME 12.1 fl (9.6-12.3); MONO # 0.9 10*3/uL (0.1-1.0); MONO % 10.2 % (3.0-9.0); NEUT # 6.2 10*3/uL (2.3-7.9); NEUT % 71.4 % (47.0-73.0); PLATELET COUNT AUTOMATED 82 10*3/uL (130-400); RED BLOOD COUNT 2.85 10*6/uL (4.10-5.10); RED CELL DISTRI WIDTH 20.8 % (0-14.5); WHITE BLOOD COUNT 8.7 10*3/uL (4.8-10.8)
[2017-02-28 08:00] VITALS: BP 95/49
[2017-02-28 12:00] VITALS: BP 105/56
[2017-02-28 16:00] VITALS: BP 115/63
[2017-02-28 20:00] VITALS: BP 89/40
[2017-03-01] VITALS (7 sets, daily range): BP systolic 89–145; BP diastolic 44–88
[2017-03-01 07:09] LABS: BASO # 0.1 10*3/uL (0.0-0.1); BASO % 0.8 % (0.0-1.0); EOS # 0.3 10*3/uL (0.0-0.4); EOS % 3.9 % (1.0-4.0); HEMATOCRIT 23.8 % (37.0-47.0); HEMOGLOBIN 7.9 g/dl (12.0-16.0); IG # 0.1 10*3/uL (0.0-0.1); LYMPH % 14.5 % (27.0-41.0); MEAN CELL VOLUME 96.7 fl (81.0-99.0); MEAN CORPUSCULAR HGB 32.1 pg (27.0-31.0); MEAN CORPUSCULAR HGB CONC 33.2 g/dl (33.0-37.0); MEAN PLATELET VOLUME 11.5 fl (9.6-12.3); MONO # 0.8 10*3/uL (0.1-1.0); MONO % 10.5 % (3.0-9.0); NEUT % 69.6 % (47.0-73.0); PLATELET COUNT AUTOMATED 82 10*3/uL (130-400); RED BLOOD COUNT 2.46 10*6/uL (4.10-5.10); WHITE BLOOD COUNT 7.2 10*3/uL (4.8-10.8)
[2017-03-01 07:23] LABS: ALBUMIN 2.5 gm/dl (3.1-4.5); ALKALINE PHOSPHATASE 142 U/L (45-117); BILIRUBIN, TOTAL 14.7 mg/dl (0.2-1.0); BUN 6 mg/dl (7-24); CARBON DIOXIDE 22 mmol/L (21-32); CHLORIDE 108 mmol/L (98-107); EST GLOM FILT AFRICAN AMERICAN > 60 ml/min; GLUCOSE 104 mg/dL (65-99); POTASSIUM 4.3 mmol/L (3.5-5.1); SGOT/AST 33 IU/L (3-35); SGPT/ALT 11 U/L (12-78); SODIUM 139 mmol/L (136-145); TOTAL PROTEIN 4.8 gm/dL (6.4-8.2)
[2017-03-02] VITALS: BP 106/41
[2017-03-02 07:20] LABS: BASO # 0.1 10*3/uL (0.0-0.1); BASO % 0.7 % (0.0-1.0); EOS # 0.3 10*3/uL (0.0-0.4); EOS % 4.7 % (1.0-4.0); HEMATOCRIT 23.7 % (37.0-47.0); HEMOGLOBIN 7.9 g/dl (12.0-16.0); LYMPH # 0.9 10*3/uL (1.3-4.4); LYMPH % 12.9 % (27.0-41.0); MEAN CELL VOLUME 97.1 fl (81.0-99.0); MEAN CORPUSCULAR HGB 32.4 pg (27.0-31.0); MEAN CORPUSCULAR HGB CONC 33.3 g/dl (33.0-37.0); MONO # 0.6 10*3/uL (0.1-1.0); MONO % 9.1 % (3.0-9.0); NEUT # 5.1 10*3/uL (2.3-7.9); PLATELET COUNT AUTOMATED 61 10*3/uL (130-400); RED BLOOD COUNT 2.44 10*6/uL (4.10-5.10); RED CELL DISTRI WIDTH 20.7 % (0-14.5); WHITE BLOOD COUNT 7.1 10*3/uL (4.8-10.8)
[2017-03-02 07:31] LABS: ALBUMIN 2.1 gm/dl (3.1-4.5); ALKALINE PHOSPHATASE 137 U/L (45-117); BILIRUBIN, TOTAL 15.5 mg/dl (0.2-1.0); BUN 6 mg/dl (7-24); CARBON DIOXIDE 20 mmol/L (21-32); CHLORIDE 106 mmol/L (98-107); EST GLOM FILT AFRICAN AMERICAN > 60 ml/min; GLUCOSE 106 mg/dL (65-99); POTASSIUM 4.3 mmol/L (3.5-5.1); SGOT/AST 38 IU/L (3-35); SGPT/ALT 11 U/L (12-78); SODIUM 136 mmol/L (136-145); TOTAL PROTEIN 4.5 gm/dL (6.4-8.2)
[2017-03-02 08:00] VITALS: BP 108/50
[2017-03-02 12:00] VITALS: BP 106/50
[2017-03-02 16:00] VITALS: BP 102/84
[2017-03-02 20:00] VITALS: BP 90/50
[2017-03-03] VITALS (10 sets, daily range): BP systolic 80–104; BP diastolic 33–69
[2017-03-03 07:18] LABS: BASO # 0.1 10*3/uL (0.0-0.1); BASO % 0.7 % (0.0-1.0); EOS # 0.3 10*3/uL (0.0-0.4); EOS % 3.4 % (1.0-4.0); HEMATOCRIT 25.7 % (37.0-47.0); HEMOGLOBIN 8.5 g/dl (12.0-16.0); IG # 0.1 10*3/uL (0.0-0.1); LYMPH % 11.5 % (27.0-41.0); MEAN CELL VOLUME 98.5 fl (81.0-99.0); MEAN CORPUSCULAR HGB 32.6 pg (27.0-31.0); MEAN CORPUSCULAR HGB CONC 33.1 g/dl (33.0-37.0); MEAN PLATELET VOLUME 13.2 fl (9.6-12.3); MONO # 0.7 10*3/uL (0.1-1.0); MONO % 8.1 % (3.0-9.0); NEUT # 6.8 10*3/uL (2.3-7.9); NEUT % 75.7 % (47.0-73.0); PLATELET COUNT AUTOMATED 59 10*3/uL (130-400); RED BLOOD COUNT 2.61 10*6/uL (4.10-5.10); RED CELL DISTRI WIDTH 20.8 % (0-14.5)
[2017-03-03 07:56] LABS: ALBUMIN 2.1 gm/dl (3.1-4.5); BILIRUBIN, TOTAL 16.7 mg/dl (0.2-1.0); BUN 6 mg/dl (7-24); CARBON DIOXIDE 19 mmol/L (21-32); CHLORIDE 103 mmol/L (98-107); EST GLOM FILT AFRICAN AMERICAN > 60 ml/min; GLUCOSE 109 mg/dL (65-99); POTASSIUM 4.4 mmol/L (3.5-5.1); SGOT/AST 42 IU/L (3-35); SGPT/ALT 13 U/L (12-78); SODIUM 135 mmol/L (136-145); TOTAL PROTEIN 5.1 gm/dL (6.4-8.2)
[2017-03-03 07:57] LABS: ALKALINE PHOSPHATASE 167 U/L (45-117)
[2017-03-03] MEDS ORDERED: K-PHOS500 MG PO (14:19)
[2017-03-03] MEDS ORDERED: MORPHINE SULF2 MG/M1 IV (14:19)
[2017-03-03] MEDS ORDERED: METOPROLOL SUCC25 M2 PO (14:19)
[2017-03-04] VITALS: BP 104/44
[2017-03-04 06:53] LABS: BASO # 0.1 10*3/uL (0.0-0.1); BASO % 0.6 % (0.0-1.0); EOS # 0.3 10*3/uL (0.0-0.4); EOS % 3.1 % (1.0-4.0); HEMATOCRIT 25.7 % (37.0-47.0); HEMOGLOBIN 8.6 g/dl (12.0-16.0); LYMPH # 0.9 10*3/uL (1.3-4.4); LYMPH % 9.8 % (27.0-41.0); MEAN CORPUSCULAR HGB 31.9 pg (27.0-31.0); MEAN CORPUSCULAR HGB CONC 33.5 g/dl (33.0-37.0); MEAN PLATELET VOLUME 13.2 fl (9.6-12.3); MONO # 0.7 10*3/uL (0.1-1.0); MONO % 7.7 % (3.0-9.0); NEUT % 78.4 % (47.0-73.0); PLATELET COUNT AUTOMATED 61 10*3/uL (130-400); RED CELL DISTRI WIDTH 21.1 % (0-14.5); WHITE BLOOD COUNT 8.9 10*3/uL (4.8-10.8)
[2017-03-04 06:59] LABS: MEAN CELL VOLUME 95.2 fl (81.0-99.0)
[2017-03-04 08:00] VITALS: BP 112/40
[2017-03-04 10:11] VITALS: BP 102/61
[2017-03-04 12:00] VITALS: BP 104/50
[2017-03-04] MEDS ORDERED: K-PHOS500 MG PO (12:25)
[2017-03-04] MEDS ORDERED: LASIX20 MG PO (12:27)
== END 2017-03-04 14:01 | disposition home health service (06) | DRG 314 ==
LOC: ED 12:34 → EDHOLD 15:01 → ICCU 15:01 → 4E 15:01 → ICCU 15:53 → 4E 02-28 15:30
PROVIDERS: Emergency Medicine; Internal Medicine; Internal Medicine Cardiovascular Disease; Student in an Organized Health Care Education/Training Program
PROC: 05PYX3Z Removal of Infusion Device from Upper Vein, External Approach (ICD-10-PCS; 2017-02-22)
PROC: 30233N1 Transfusion of Nonautologous Red Blood Cells into Peripheral Vein, Percutaneous Approach (ICD-10-PCS; 2017-02-23)
PROC: 3E0G8GC Introduction of Other Therapeutic Substance into Upper GI, Via Natural or Artificial Opening Endoscopic (ICD-10-PCS; principal; 2017-02-25)
PROC: 30233R1 Transfusion of Nonautologous Platelets into Peripheral Vein, Percutaneous Approach (ICD-10-PCS; 2017-02-25)
PROC: 02HV33Z Insertion of Infusion Device into Superior Vena Cava, Percutaneous Approach (ICD-10-PCS; 2017-02-25)
PROC: 0W9G3ZZ Drainage of Peritoneal Cavity, Percutaneous Approach (ICD-10-PCS; 2017-03-03)
PROC: BW40ZZZ Ultrasonography of Abdomen (ICD-10-PCS; 2017-03-03)
DX: T80.211A Bloodstream infection due to central venous catheter, initial encounter (principal); A41.9 Sepsis, unspecified organism; R65.20 Severe sepsis without septic shock; E43 Unspecified severe protein-calorie malnutrition; D69.6 Thrombocytopenia, unspecified; K76.6 Portal hypertension; I85.10 Secondary esophageal varices without bleeding; E87.1 Hypo-osmolality and hyponatremia; K92.2 Gastrointestinal hemorrhage, unspecified; K22.10 Ulcer of esophagus without bleeding; K70.31 Alcoholic cirrhosis of liver with ascites; E87.6 Hypokalemia; D72.810 Lymphocytopenia; I10 Essential (primary) hypertension; D64.9 Anemia, unspecified; E55.9 Vitamin D deficiency, unspecified; K44.9 Diaphragmatic hernia without obstruction or gangrene; Z68.33 Body mass index [BMI] 33.0-33.9, adult; Z87.891 Personal history of nicotine dependence; Z88.0 Allergy status to penicillin; Z79.899 Other long term (current) drug therapy

== ENCOUNTER 2017-03-24 08:21 | Inpatient (IN) | payer OTHER ==
[2017-03-24] VITALS (7 sets, daily range): BP systolic 100–126; BP diastolic 33–70
[~2017-03-24] VITALS: Ht 165.1 cm; Wt 98.0 kg
[~2017-03-24 08:21] MED LIST changes: +K-PHOS500 MG PO; +LASIX20 MG PO; +METOPROLOL SUCC25 M2 PO; +MORPHINE SULF2 MG/M1 IV
[2017-03-24] MEDS ORDERED: LASIX40 MG PO (08:39)
[2017-03-24 09:12] LABS: BASO % 0.1 % (0.0-1.0); EOS # 0.1 10*3/uL (0.0-0.4); EOS % 1.2 % (1.0-4.0); HEMATOCRIT 19.3 % (37.0-47.0); HEMOGLOBIN 7.2 g/dl (12.0-16.0); IG # 0.1 10*3/uL (0.0-0.1); LYMPH # 0.5 10*3/uL (1.3-4.4); LYMPH % 4.8 % (27.0-41.0); MEAN CELL VOLUME 90.2 fl (81.0-99.0); MEAN CORPUSCULAR HGB 33.6 pg (27.0-31.0); MEAN PLATELET VOLUME 13.4 fl (9.6-12.3); MONO # 0.8 10*3/uL (0.1-1.0); MONO % 7.6 % (3.0-9.0); NEUT # 8.6 10*3/uL (2.3-7.9); NEUT % 85.1 % (47.0-73.0); PLATELET COUNT AUTOMATED 67 10*3/uL (130-400); RED BLOOD COUNT 2.14 10*6/uL (4.10-5.10); RED CELL DISTRI WIDTH 17.2 % (0-14.5)
[2017-03-24 09:12] LABS: BILIRUBIN 3+ (NEGATIVE); BLOOD NEGATIVE (NEGATIVE); CLARITY CLEAR (CLEAR); COLOR YELLOW (YELLOW); GLUCOSE NEGATIVE (NEGATIVE); KETONE NEGATIVE (NEGATIVE); NITRITE NEGATIVE (NEGATIVE); PROTEIN NEGATIVE (NEGATIVE); SPECIFIC GRAVITY <= 1.005 (1.005-1.030)
[2017-03-24 09:14] LABS: MEAN CORPUSCULAR HGB CONC 37.3 g/dl (33.0-37.0)
[2017-03-24 09:17] LABS: INTERNATIONAL NORM RATIO 1.7 (2.0-3.5); PROTHROMBIN TIME 18.5 SECONDS (9.0-12.4)
[2017-03-24 09:19] LABS: ALBUMIN 1.9 gm/dl (3.1-4.5); ALKALINE PHOSPHATASE 192 U/L (45-117); BILIRUBIN, TOTAL 14.2 mg/dl (0.2-1.0); BUN 9 mg/dl (7-24); CARBON DIOXIDE 23 mmol/L (21-32); CHLORIDE 80 mmol/L (98-107); EST GLOM FILT AFRICAN AMERICAN > 60 ml/min; GLUCOSE 102 mg/dL (65-99); SGOT/AST 63 IU/L (3-35); SGPT/ALT 23 U/L (12-78); TOTAL PROTEIN 5.8 gm/dL (6.4-8.2); TROPONIN I 0.031 ng/ml (<0.045)
[2017-03-24 09:25] LABS: POTASSIUM 2.3 mmol/L (3.5-5.1); SODIUM 116 mmol/L (136-145)
[2017-03-24 09:41] LABS: BACTERIA 2+; EPITHELIAL CELLS 15-20
[2017-03-24 09:42] LABS: URINE REFLEX COMMENT YES (NO); YEAST 1+
[2017-03-24 09:43] LABS: LEUKO ESTERASE NEGATIVE (NEGATIVE)
[2017-03-24] MEDS ORDERED: XIFAXAN550 MG PO (13:35)
[2017-03-24] MEDS ORDERED: CYCLOBENZAPRINE5 M3 PO (13:36)
[2017-03-24] MEDS ORDERED: LOPRESSOR50 M1 PO (13:37)
[2017-03-24 19:11] LABS: ALBUMIN 1.9 gm/dl (3.1-4.5); BUN 8 mg/dl (7-24); CARBON DIOXIDE 18 mmol/L (21-32); CHLORIDE 84 mmol/L (98-107); EST GLOM FILT AFRICAN AMERICAN > 60 ml/min; GLUCOSE 110 mg/dL (65-99); MAGNESIUM 1.9 mg/dL (1.5-2.1); PHOSPHOROUS 1.8 mg/dL (2.5-4.9)
[2017-03-24 19:15] LABS: POTASSIUM 3.3 mmol/L (3.5-5.1); SODIUM 117 mmol/L (136-145)
[2017-03-25] VITALS: BP 137/84
[2017-03-25 04:00] VITALS: BP 90/58
[2017-03-25 06:53] LABS: BASO % 0.1 % (0.0-1.0); EOS # 0.3 10*3/uL (0.0-0.4); EOS % 1.6 % (1.0-4.0); HEMATOCRIT 21.4 % (37.0-47.0); HEMOGLOBIN 7.8 g/dl (12.0-16.0); IG # 0.3 10*3/uL (0.0-0.1); LYMPH % 5.8 % (27.0-41.0); MEAN CELL VOLUME 92.2 fl (81.0-99.0); MEAN CORPUSCULAR HGB 33.6 pg (27.0-31.0); MEAN CORPUSCULAR HGB CONC 36.4 g/dl (33.0-37.0); MONO # 1.5 10*3/uL (0.1-1.0); MONO % 8.8 % (3.0-9.0); NEUT # 13.6 10*3/uL (2.3-7.9); NEUT % 82.2 % (47.0-73.0); RED BLOOD COUNT 2.32 10*6/uL (4.10-5.10); RED CELL DISTRI WIDTH 17.7 % (0-14.5); WHITE BLOOD COUNT 16.5 10*3/uL (4.8-10.8)
[2017-03-25 06:57] LABS: PLATELET COUNT AUTOMATED 105 10*3/uL (130-400)
[2017-03-25 07:06] LABS: ALKALINE PHOSPHATASE 200 U/L (45-117); BILIRUBIN, TOTAL 17.4 mg/dl (0.2-1.0); BUN 9 mg/dl (7-24); CARBON DIOXIDE 18 mmol/L (21-32); CHLORIDE 84 mmol/L (98-107); EST GLOM FILT AFRICAN AMERICAN > 60 ml/min; GLUCOSE 94 mg/dL (65-99); MAGNESIUM 1.8 mg/dL (1.5-2.1); PHOSPHOROUS 2.4 mg/dL (2.5-4.9); SGOT/AST 70 IU/L (3-35); SGPT/ALT 27 U/L (12-78); TOTAL PROTEIN 5.9 gm/dL (6.4-8.2)
[2017-03-25 07:22] LABS: SODIUM 117 mmol/L (136-145)
[2017-03-25 07:34] LABS: INTERNATIONAL NORM RATIO 1.6 (2.0-3.5); PROTHROMBIN TIME 17.4 SECONDS (9.0-12.4)
[2017-03-25 08:00] VITALS: BP 110/44
[2017-03-25 12:00] VITALS: BP 94/72
[2017-03-25 16:00] VITALS: BP 124/58
[2017-03-25 18:47] LABS: ALBUMIN 1.9 gm/dl (3.1-4.5); PHOSPHOROUS 2.5 mg/dL (2.5-4.9)
[2017-03-25 20:00] VITALS: BP 124/60
[2017-03-26] VITALS (23 sets, daily range): BP systolic 58–110; BP diastolic 21–84
[2017-03-26 06:37] LABS: HEMATOCRIT 18.9 % (37.0-47.0); HEMOGLOBIN 6.8 g/dl (12.0-16.0); MEAN CORPUSCULAR HGB 34.3 pg (27.0-31.0); MEAN PLATELET VOLUME 12.5 fl (9.6-12.3); PLATELET COUNT AUTOMATED 123 10*3/uL (130-400); RED BLOOD COUNT 1.98 10*6/uL (4.10-5.10); WHITE BLOOD COUNT 21.5 10*3/uL (4.8-10.8)
[2017-03-26 06:41] LABS: MEAN CELL VOLUME 95.5 fl (81.0-99.0)
[2017-03-26 07:01] LABS: LYMPHOCYTE # 0.6 10*3/uL (1.3-4.4); METAMYELOCYTES 1 % (0-0); MONOCYTE # 0.4 10*3/uL (0.1-1.0); NEUTROPHIL # 20.2 10*3/uL (2.3-7.9); NEUTROPHILS 94 % (47-73); TOTAL CELLS COUNTED 100 #CELLS
[2017-03-26 07:02] LABS: ACANTHOCYTES FEW; PLATELET SUFFICIENCY LOW (NORMAL); POLYCHROMASIA SLIGHT; SCHISTOCYTES FEW
[2017-03-26 07:14] LABS: MAGNESIUM 2.1 mg/dL (1.5-2.1); PHOSPHOROUS 2.7 mg/dL (2.5-4.9); POTASSIUM 4.4 mmol/L (3.5-5.1)
[2017-03-26 07:28] LABS: ALBUMIN 1.9 gm/dl (3.1-4.5); TOTAL PROTEIN 5.5 gm/dL (6.4-8.2)
[2017-03-26 07:31] LABS: BILIRUBIN, TOTAL 19.9 mg/dl (0.2-1.0)
[2017-03-27] VITALS: BP 100/50
[2017-03-27 00:47] LABS: POTASSIUM 4.6 mmol/L (3.5-5.1)
[2017-03-27 04:00] VITALS: BP 104/50
[2017-03-27 06:14] LABS: HEMATOCRIT 18.2 % (37.0-47.0); HEMOGLOBIN 6.5 g/dl (12.0-16.0); MEAN CELL VOLUME 94.3 fl (81.0-99.0); MEAN CORPUSCULAR HGB 33.7 pg (27.0-31.0); MEAN CORPUSCULAR HGB CONC 35.7 g/dl (33.0-37.0); MEAN PLATELET VOLUME 11.9 fl (9.6-12.3); PLATELET COUNT AUTOMATED 105 10*3/uL (130-400); RED BLOOD COUNT 1.93 10*6/uL (4.10-5.10); RED CELL DISTRI WIDTH 17.9 % (0-14.5); WHITE BLOOD COUNT 19.5 10*3/uL (4.8-10.8)
[2017-03-27 06:50] LABS: EOSINOPHIL # 0.2 10*3/uL (0-0.4); EOSINOPHILS 1 % (1-4); LYMPHOCYTE # 1.6 10*3/uL (1.3-4.4); METAMYELOCYTES 1 % (0-0); MONOCYTE # 0.4 10*3/uL (0.1-1.0); NEUTROPHIL # 17.2 10*3/uL (2.3-7.9); NEUTROPHILS 88 % (47-73); POTASSIUM 4.7 mmol/L (3.5-5.1); TOTAL CELLS COUNTED 100 #CELLS
[2017-03-27 06:51] LABS: ACANTHOCYTES FEW; BURR CELLS MODERATE; PHOSPHOROUS 3.5 mg/dL (2.5-4.9); PLATELET SUFFICIENCY LOW (NORMAL); POLYCHROMASIA SLIGHT; POTASSIUM 4.7 mmol/L (3.5-5.1); SCHISTOCYTES FEW; TOTAL PROTEIN 5.4 gm/dL (6.4-8.2)
[2017-03-27 06:56] LABS: BILIRUBIN, TOTAL 21.8 mg/dl (0.2-1.0)
[2017-03-27 08:00] VITALS: BP 108/60
[2017-03-27] MEDS ORDERED: VANCO 1.51.5 GM/150 IV (10:43)
[2017-03-27] MEDS ORDERED: VANCOMYCIN250 MG/2.5 PO (10:43)
[2017-03-27] MEDS ORDERED: MERREM IV1 GM IV (10:43)
[2017-03-27 12:00] VITALS: BP 104/60
[2017-03-27 16:00] VITALS: BP 107/30
[2017-03-27 20:00] VITALS: BP 109/30
== END 2017-03-27 21:21 | disposition short-term general hospital (02) | DRG 432 ==
LOC: ED 08:21 → EDHOLD 11:42 → 4E 11:42 → ICCU 03-26 12:39
PROVIDERS: Emergency Medicine; Hospitalist; Internal Medicine; Internal Medicine Nephrology
PROC: 30233N1 Transfusion of Nonautologous Red Blood Cells into Peripheral Vein, Percutaneous Approach (ICD-10-PCS; principal; 2017-03-27)
DX: K70.31 Alcoholic cirrhosis of liver with ascites (principal); E43 Unspecified severe protein-calorie malnutrition; K76.6 Portal hypertension; K72.10 Chronic hepatic failure without coma; I85.10 Secondary esophageal varices without bleeding; E87.1 Hypo-osmolality and hyponatremia; K52.9 Noninfective gastroenteritis and colitis, unspecified; E86.0 Dehydration; E87.6 Hypokalemia; D53.9 Nutritional anemia, unspecified; F10.21 Alcohol dependence, in remission; E86.1 Hypovolemia; I10 Essential (primary) hypertension; E55.9 Vitamin D deficiency, unspecified; Z79.899 Other long term (current) drug therapy; Z88.0 Allergy status to penicillin; Z68.35 Body mass index [BMI] 35.0-35.9, adult

== ENCOUNTER 2017-04-13 11:57 | Inpatient (IN) | payer OTHER ==
[~2017-04-13] VITALS: Ht 165.1 cm; Wt 101.2 kg
[2017-04-13] VITALS (10 sets, daily range): BP systolic 90–107; BP diastolic 32–55
[~2017-04-13 11:57] MED LIST changes: +CYCLOBENZAPRINE5 M3 PO; +LASIX40 MG PO; +LOPRESSOR50 M1 PO; +VANCO 1.51.5 GM/150 IV; +VANCOMYCIN250 MG/2.5 PO
[2017-04-13] MEDS ORDERED: PRILOSEC20 M1 PO (13:25)
[2017-04-13] MEDS ORDERED: LASIX40 MG PO (13:26)
[2017-04-13] MEDS ORDERED: VITAMIN B-11 TAB PO (13:27)
[2017-04-13] MEDS ORDERED: PHOSPHA 250 NEU1 TAB PO (13:32)
[2017-04-13 14:49] LABS: INTERNATIONAL NORM RATIO 1.6 (2.0-3.5); PROTHROMBIN TIME 17.2 SECONDS (9.0-12.4)
[2017-04-13 14:54] LABS: ALBUMIN 1.8 gm/dl (3.1-4.5); BILIRUBIN, TOTAL 10.9 mg/dl (0.2-1.0); BUN 17 mg/dl (7-24); CARBON DIOXIDE 19 mmol/L (21-32); CHLORIDE 99 mmol/L (98-107); EST GLOM FILT AFRICAN AMERICAN > 60 ml/min; GLUCOSE 109 mg/dL (65-99); MAGNESIUM 1.3 mg/dL (1.5-2.1); PHOSPHOROUS 4.1 mg/dL (2.5-4.9); POTASSIUM 3.6 mmol/L (3.5-5.1); SGOT/AST 57 IU/L (3-35); SGPT/ALT 33 U/L (12-78); SODIUM 129 mmol/L (136-145); TOTAL PROTEIN 5.9 gm/dL (6.4-8.2)
[2017-04-13 14:55] LABS: ALKALINE PHOSPHATASE 238 U/L (45-117)
[2017-04-13 15:29] LABS: HEMATOCRIT 20.7 % (37.0-47.0); HEMOGLOBIN 6.9 g/dl (12.0-16.0); MEAN CELL VOLUME 100.5 fl (81.0-99.0); MEAN CORPUSCULAR HGB 33.5 pg (27.0-31.0); MEAN CORPUSCULAR HGB CONC 33.3 g/dl (33.0-37.0); MEAN PLATELET VOLUME 13.3 fl (9.6-12.3); RED BLOOD COUNT 2.06 10*6/uL (4.10-5.10); RED CELL DISTRI WIDTH 18.8 % (0-14.5); WHITE BLOOD COUNT 8.5 10*3/uL (4.8-10.8)
[2017-04-13 16:24] LABS: BASOPHILS 1 % (0-1); BURR CELLS FEW; EOSINOPHILS 4 % (1-4); NEUTROPHILS 78 % (47-73); PLATELET SUFFICIENCY LOW (NORMAL); TOTAL CELLS COUNTED 100 #CELLS
[2017-04-13 16:25] LABS: HYPOCHROMIA SLIGHT
[2017-04-13 16:26] LABS: PLATELET COUNT AUTOMATED 48 10*3/uL (130-400)
[2017-04-13 16:37] LABS: EOSINOPHIL # 0.3 10*3/uL (0-0.4); MONOCYTE # 0.4 10*3/uL (0.1-1.0)
[2017-04-13 16:38] LABS: BASOPHIL # 0.1 10*3/uL (0-0.1); NEUTROPHIL # 6.6 10*3/uL (2.3-7.9)
[2017-04-13] MEDS ORDERED: LACTULOSE10 GM/153 PO (17:53)
[2017-04-14] VITALS (11 sets, daily range): BP systolic 94–133; BP diastolic 39–60
[2017-04-14 00:47] LABS: BILIRUBIN 2+ (NEGATIVE); BLOOD 1+ (NEGATIVE); CLARITY SL CLOUDY (CLEAR); COLOR YELLOW (YELLOW); GLUCOSE NEGATIVE (NEGATIVE); KETONE NEGATIVE (NEGATIVE); LEUKO ESTERASE TRACE (NEGATIVE); NITRITE NEGATIVE (NEGATIVE); PH 5.5 (5.0-9.0); PROTEIN NEGATIVE (NEGATIVE); UROBILINOGEN 0.2 E.U./dl (0.2-1.0)
[2017-04-14 00:53] LABS: BASO % 0.5 % (0.0-1.0); EOS # 0.4 10*3/uL (0.0-0.4); EOS % 4.4 % (1.0-4.0); HEMATOCRIT 19.3 % (37.0-47.0); HEMOGLOBIN 6.9 g/dl (12.0-16.0); IG # 0.1 10*3/uL (0.0-0.1); LYMPH # 0.7 10*3/uL (1.3-4.4); LYMPH % 8.5 % (27.0-41.0); MEAN CORPUSCULAR HGB CONC 35.8 g/dl (33.0-37.0); MEAN PLATELET VOLUME 9.6 fl (9.6-12.3); MONO # 0.7 10*3/uL (0.1-1.0); MONO % 8.6 % (3.0-9.0); NEUT # 6.5 10*3/uL (2.3-7.9); NEUT % 76.5 % (47.0-73.0); RED BLOOD COUNT 2.03 10*6/uL (4.10-5.10); RED CELL DISTRI WIDTH 19.1 % (0-14.5); WHITE BLOOD COUNT 8.5 10*3/uL (4.8-10.8)
[2017-04-14 01:01] LABS: MEAN CELL VOLUME 95.1 fl (81.0-99.0)
[2017-04-14 01:04] LABS: PLATELET COUNT AUTOMATED 88 10*3/uL (130-400)
[2017-04-14 01:10] LABS: EPITHELIAL CELLS 40-45
[2017-04-14 01:11] LABS: BACTERIA 1+; URINE REFLEX COMMENT YES (NO); YEAST TRACE
[2017-04-14 08:17] LABS: BASO % 0.3 % (0.0-1.0); EOS # 0.3 10*3/uL (0.0-0.4); EOS % 3.2 % (1.0-4.0); HEMATOCRIT 24.7 % (37.0-47.0); HEMOGLOBIN 8.6 g/dl (12.0-16.0); IG # 0.1 10*3/uL (0.0-0.1); LYMPH # 0.7 10*3/uL (1.3-4.4); LYMPH % 7.6 % (27.0-41.0); MEAN CELL VOLUME 93.9 fl (81.0-99.0); MEAN CORPUSCULAR HGB 32.7 pg (27.0-31.0); MEAN CORPUSCULAR HGB CONC 34.8 g/dl (33.0-37.0); MONO # 0.8 10*3/uL (0.1-1.0); MONO % 8.1 % (3.0-9.0); NEUT # 7.6 10*3/uL (2.3-7.9); NEUT % 79.8 % (47.0-73.0); RED BLOOD COUNT 2.63 10*6/uL (4.10-5.10); RED CELL DISTRI WIDTH 19.1 % (0-14.5); WHITE BLOOD COUNT 9.6 10*3/uL (4.8-10.8)
[2017-04-14 08:19] LABS: MEAN PLATELET VOLUME 10.2 fl (9.6-12.3); PLATELET COUNT AUTOMATED 84 10*3/uL (130-400)
[2017-04-14 08:29] LABS: INTERNATIONAL NORM RATIO 1.5 (2.0-3.5); PROTHROMBIN TIME 16.7 SECONDS (9.0-12.4)
[2017-04-14 08:32] LABS: ALBUMIN 1.8 gm/dl (3.1-4.5); ALKALINE PHOSPHATASE 230 U/L (45-117); BILIRUBIN, TOTAL 13.8 mg/dl (0.2-1.0); BUN 17 mg/dl (7-24); CARBON DIOXIDE 20 mmol/L (21-32); CHLORIDE 97 mmol/L (98-107); EST GLOM FILT AFRICAN AMERICAN > 60 ml/min; GLUCOSE 107 mg/dL (65-99); POTASSIUM 3.7 mmol/L (3.5-5.1); SGOT/AST 55 IU/L (3-35); SGPT/ALT 32 U/L (12-78); SODIUM 130 mmol/L (136-145); TOTAL PROTEIN 5.8 gm/dL (6.4-8.2); TRIGLYCERIDES 75 mg/dl (<150); VLDL CHOLESTEROL 15 mg/dL (6-40)
[2017-04-14 08:34] LABS: FREE T4 2.77 ng/dl (0.76-1.46); HDL CHOLESTEROL 14 mg/dl (40-60)
[2017-04-14 09:07] LABS: CHOLESTEROL < 50 mg/dL (<200); LDL CHOLESTEROL 21 mg/dL (9-159)
[2017-04-14 09:47] LABS: VITAMIN D, 25-HYDROXY 31.1 ng/mL (30-100)
[2017-04-14 09:48] LABS: FOLIC ACID 12.58 ng/mL (>5.38)
[2017-04-15] VITALS: BP 113/61
[2017-04-15 06:41] LABS: BUN 16 mg/dl (7-24); CARBON DIOXIDE 21 mmol/L (21-32); CHLORIDE 98 mmol/L (98-107); EST GLOM FILT AFRICAN AMERICAN > 60 ml/min; GLUCOSE 123 mg/dL (65-99); POTASSIUM 3.3 mmol/L (3.5-5.1); SODIUM 131 mmol/L (136-145)
[2017-04-15 07:19] LABS: BASO # 0.1 10*3/uL (0.0-0.1); BASO % 0.7 % (0.0-1.0); EOS # 0.3 10*3/uL (0.0-0.4); EOS % 4.2 % (1.0-4.0); HEMATOCRIT 24.3 % (37.0-47.0); HEMOGLOBIN 8.7 g/dl (12.0-16.0); IG # 0.1 10*3/uL (0.0-0.1); LYMPH # 0.8 10*3/uL (1.3-4.4); LYMPH % 10.6 % (27.0-41.0); MEAN CELL VOLUME 92.7 fl (81.0-99.0); MEAN CORPUSCULAR HGB 33.2 pg (27.0-31.0); MEAN CORPUSCULAR HGB CONC 35.8 g/dl (33.0-37.0); MEAN PLATELET VOLUME 10.6 fl (9.6-12.3); MONO # 0.8 10*3/uL (0.1-1.0); MONO % 10.2 % (3.0-9.0); NEUT # 5.5 10*3/uL (2.3-7.9); NEUT % 73.2 % (47.0-73.0); PLATELET COUNT AUTOMATED 77 10*3/uL (130-400); RED BLOOD COUNT 2.62 10*6/uL (4.10-5.10); WHITE BLOOD COUNT 7.5 10*3/uL (4.8-10.8)
[2017-04-15 08:00] VITALS: BP 114/52
== END 2017-04-15 12:00 | disposition home or self-care (01) | DRG 432 ==
LOC: 4E 11:57
PROVIDERS: Family Medicine; Internal Medicine
PROC: 30233N1 Transfusion of Nonautologous Red Blood Cells into Peripheral Vein, Percutaneous Approach (ICD-10-PCS; principal; 2017-04-13)
PROC: 0W9G3ZZ Drainage of Peritoneal Cavity, Percutaneous Approach (ICD-10-PCS; 2017-04-13)
DX: K70.31 Alcoholic cirrhosis of liver with ascites (principal); N17.0 Acute kidney failure with tubular necrosis; E43 Unspecified severe protein-calorie malnutrition; E87.2 Acidosis; E87.1 Hypo-osmolality and hyponatremia; Z76.82 Awaiting organ transplant status; E83.42 Hypomagnesemia; D63.8 Anemia in other chronic diseases classified elsewhere; I10 Essential (primary) hypertension; Z82.49 Family history of ischemic heart disease and other diseases of the circulatory system; Z88.0 Allergy status to penicillin; Z79.899 Other long term (current) drug therapy; Z68.37 Body mass index [BMI] 37.0-37.9, adult; G89.29 Other chronic pain; M54.5 Low back pain

== ENCOUNTER 2017-04-20 11:03 | Inpatient (IN) | payer OTHER ==
[2017-04-20] VITALS (7 sets, daily range): BP systolic 122–141; BP diastolic 56–67
[~2017-04-20] VITALS: Ht 170.1 cm; Wt 96.6 kg
--- NOTE | ~2017-04-20 | PR ---
[place], [place] PROGRESS NOTE NAME: MAGDA LANG UNIT #: [id number] ROOM: [facility] DOCTOR: LON WILD MD,KAILASH BIRTHDATE: [birth year] DOS: 04/22/2017 SUBJECTIVE: She has been noted comfortable at this time, still getting oxygen supplementation nasal cannula. The consent for placement chest tube for the massive right pleural fluid was obtained from the patient's power of deputy commonwealth's attorney. The patient denies symptoms of chest pain, coughing or hemoptysis. OBJECTIVE: VITAL SIGNS: Showed normal temperature, respiratory rate was 12, heart rate 82, blood pressure of 109/51-87/34. Pulse oxygen saturation on 2 liters nasal cannula 96% saturation. HEENT: Examination shows head was atraumatic and deep. Icterus was noted. CARDIOVASCULAR: S1, S2 audible. LUNGS: Noted with absent breath sounds on right chest. The left lung was noted clear. ABDOMEN: Soft, nontender. There is [id number] obesity. EXTREMITIES: Shows no edema. LABORATORY DATA: Arterial blood gas this morning, pH of 7.31, pCO2 of 48, pO2 of 41 on 3 L nasal cannula. The urine culture showed no bacterial growth from 04/20. Ammonia level was elevated at 89. CMP this morning, glucose 120, BUN and creatinine was normal. Sodium 131, bilirubin 11.8, AST 58. Blood culture. The patient showed no bacterial growth from 04/20. IMPRESSION: 1. The patient with persistent hepatitic encephalopathy with massive right pleural fluid. Currently, assess the patient's chest tube placement. Ultrasound guidance assessment which was performed at the bedside. Continue other treatment, plan of management. Past urinary tract infection. The patient's PRVC has been resolved at this time and new culture noted negative for any bacterial isolation. 2. History of advanced liver disease with past use of alcohol. PLAN OF TREATMENT: Proceed with the chest tube insertion. Continue oxygen supplementation, maintain saturation 90% or greater. Use of the BiPAP if necessary to stabilize respiratory status. Continue with supportive plan of therapy and management. Usual care. All other treatment as in progress. [place], [place] PROGRESS NOTE NAME: MAGDA LANG UNIT #: [id number] ROOM: [facility] DOCTOR: LON WILD MD,KAILASH BIRTHDATE: [birth year] KAILASH FORREST MD CM:PNTRANS [phone] KAILASH WILD MD 04/22/17 1623 interface
--- NOTE | ~2017-04-20 | PR ---
[place], [place] PROGRESS NOTE [id number] UNIT #: [id number] ROOM: [facility]- DOCTOR: MU IYER MD BIRTHDATE: [birth year] DOS: 04/23/2017 CARDIOLOGY PROGRESS NOTE. SUBJECTIVE: The patient was seen at her bedside today in the Intensive Care Unit without any family in attendance. She is very awake and alert today despite the fact that her ammonia levels are very high. Her chest tube remains intact and is draining. She has drained over 3 liters since the tube was inserted 24 hours ago. Her hemoglobin has dropped and is now 7.0. The patient is getting blood and IV fluids to help maintain her blood pressure. An echocardiogram was done on April 22 and showed normal left ventricular size with hyperdynamic left ventricular wall motion and systolic function. Ejection fraction was greater than 75%. Doppler indices of diastolic function were normal. The right ventricle was normal in size. Valve functions were normal. PHYSICAL EXAMINATION: VITAL SIGNS: Today, her pulse is 84 and regular, blood pressure is 96/40. She is not on any pressors. She weighs 97.7 kilograms with a body mass index of 33.8. HEENT: Normocephalic and atraumatic. Extraocular muscles are intact. She does have scleral icterus. She also has very dark skin tone. NECK: Carotids are full. She has no jugular distention or hepatojugular reflux. HEART: Has a regular rhythm with an S4 gallop with a grade 2/6 systolic murmur along the left sternal border. No diastolic murmurs are present. The PMI is not displaced. There is no precordial heave, lift or thrill. LUNGS: Have decreased breath sounds at the bases. ABDOMEN: Distended with a fluid wave. EXTREMITIES: Showed no ankle edema at this time. Peripheral pulses are palpable bilaterally. LABORATORY DATA: Today show hemoglobin of 7.0, white count of 8700, platelet count 73,000. Sodium 134, potassium 3.4, BUN 18, creatinine 1.57. IMPRESSION: 1. Hepatic cirrhosis with chronic hepatic failure. 2. Anasarca and ascites. 3. Large right pleural effusion. The patient is undergoing tube thoracostomy drainage. 4. Supraventricular tachycardia. The patient is currently in sinus rhythm. 5. History of bacteremia from an infected MediPort. Blood cultures remain negative thus far this admission. PLAN: I hardly agree with giving her a red cell transfusion and continuing to administer IV fluids. This should help maintain her pressures better. At this point, I have no other cardiac recommendations. We will continue to follow her with her other physicians and we thank the hospitalist physicians for asking our advice regarding her care. [place], [place] PROGRESS NOTE NAME: MAGDA LANG UNIT #: [id number] [facility] DOCTOR: MU IYER MD BIRTHDATE: [birth year] MU IYER MD CM:PNTRANS [phone] MU IYER MD 04/23/17 2243 interface
--- NOTE | ~2017-04-20 | PR ---
[place], [place] PROGRESS NOTE NAME: MAGDA LANG UNIT #: [id number] ROOM: [facility] DOCTOR: MU IYER MD BIRTHDATE: [birth year] DOS: 04/22/2017 SUBJECTIVE: The patient was seen at her bedside without any family in attendance today on 04/22/2017. Earlier today, she did undergo thoracentesis and over 2 liters of fluid was removed from her right lung. A chest tube has been left in place. The patient does have cirrhosis and ascites due to alcohol abuse. She also is known to have esophageal varices. We were asked to see her because of supraventricular tachycardia. Since her thoracentesis, her heart rate has decreased and her pulse is now 82. After the eventual removal of over 2 liters of fluid, her blood pressure has decreased and she is being given a fluid bolus at this time. PHYSICAL EXAMINATION: VITAL SIGNS: Her pulse is 82 and regular, blood pressure is 88/36, oxygen saturation is 100%. NECK: Supple. She does have jugular distention with hepatojugular reflux. Carotids are full. LUNGS: Respirations are unlabored. She has decreased breath sounds at the right base. HEART: Has a regular rhythm with an S4 gallop. ABDOMEN: Distended with a fluid wave. EXTREMITIES: Showed 1+ edema bilaterally. An echocardiogram done 02/01/2017 showed normal left ventricular size, wall thickness, regional wall motion and systolic function with normal right ventricular size and function, trace mitral insufficiency, no significant pericardial effusion. IMPRESSION: 1. Hepatic cirrhosis with chronic hepatic failure. 2. Anasarca and ascites. 3. Large right pleural effusion. 4. Supraventricular tachycardia. The patient is now in sinus rhythm. 5. History of bacteremia from an infected MediPort. Blood cultures remain negative thus far this admission. PLAN: We will continue low dose beta shyam for control of her SVT. I agree with the fluid bolus since she had a large volume thoracentesis earlier today. We will continue to follow her clinically with her other physicians. I thank the hospitalist physicians for asking our advice regarding her care. [place], [place] PROGRESS NOTE NAME: MAGDA LANG UNIT #: [id number] ROOM: [facility] DOCTOR: MU IYER MDDATE: [birth year] MU IYER MD CM:PNTRANS [phone] MU IYER MD 04/23/170 interface
--- NOTE | ~2017-04-20 | PR ---
[place], [place] PROGRESS NOTE NAME: MAGDA LANG [facility] #: [id number] UNIT #: [id number] ROOM: [facility] DOCTOR: LON WILD MD,KAILASH BIRTHDATE: [birth year] DOS: 04/23/2017 PULMONARY FOLLOWUP SUBJECTIVE: Chest tube was inserted successfully yesterday into the right hemithorax with extremely large amount of pleural fluid was drained from the left pleural space which was about 4.750 liters. She has been noted comfortable at this time. Denies symptoms of abdominal pain. Denies symptoms of hemoptysis. OBJECTIVE: VITAL SIGNS: For the patient which was recorded shows normal temperature, respiratory rate of 14, heart rate 81, blood pressure of 96/40. HEENT: Examination shows no new change. The icterus was noted. NECK: Supple. CARDIOVASCULAR: S1, S2 audible. LUNGS: Improvement in aeration of the lung on the right side. Left lung was noted clear. ABDOMEN: Soft, mild obesity. EXTREMITIES: Shows no edema. LABORATORY DATA: The patient's CMP for the patient this morning, BUN 18, creatinine 1.57, potassium 3.4, chloride of 134. Ammonia level was noted 74 today. CBC this morning, hemoglobin 7.8, hematocrit 20.4, platelet count of 73,000, WBC count was normal. Chest x-ray today shows chest tube in place for this patient with the improvement in the aeration of the lung and the reexpansion of the lungs for the patient with current chest tube insertion. The chemistry of the pleural was noted as glucose 128, albumin of 0.5, LDH of 68, cholesterol less than 50. The cell count noted 73% macrophages. Total WBCs was noted as 434. IMPRESSION: 1. The patient with transudative pleural fluid, large volume about 5 liters or greater has been drained over the last 24 hours. 2. The patient with history of advanced liver disease. The patient has liver cirrhosis as well. 3. Hyperbilirubinemia. 4. Hepatic encephalopathy. PLAN OF MANAGEMENT: Continue chest tube to the drainage. Monitoring respiratory status. Continue medical management of hepatic encephalopathy. Usual care, other supportive plan of management care and therapies. Usual management as in progress. No additional changes in treatment at this time will be necessary. [place], [place] PROGRESS NOTE NAME: MAGDA LANG UNIT #: [id number] ROOM: [facility] DOCTOR: LON WILD MD,KAILASH BIRTHDATE: [birth year] KAILASH FORREST MD CM:PNTRANS [id number] KAILASH WILD MD 04/25/17 0411 interface
--- NOTE | ~2017-04-20 | PR ---
[place], [place] PROGRESS NOTE NAME: MAGDA LANG UNIT #: [id number] ROOM: [facility] DOCTOR: KAILASH VILCHIS MD BIRTHDATE: [birth year] DOS: 04/24/2017 PULMONARY FOLLOWUP SUBJECTIVE: The patient has been noted to be comfortable at this time. Chest tube remains in place, a large amount of pleural fluid drainage continued from the right pleural space. She has been noted with a large hemetemesis with this, rather large amount of blood, has hematochezia. It was planned for EGD and colonoscopy to be done today. She has been known with history of cirrhosis of liver with esophageal varices previously. OBJECTIVE: VITAL SIGNS: Normal temperature, respiratory rate 19, heart rate 98, blood pressure 111/48. The pulse oxygen saturation for the patient recorded on 2 liters 99% saturation. HEENT: Showed no acute change. NECK: Supple. CARDIOVASCULAR: S1, S2 audible. LUNGS: No wheezing or crackles at the present time was noted. ABDOMEN: Soft, nontender. EXTREMITIES: No edema. LABORATORY DATA: CBC today: WBC count normal, hemoglobin 7.7, hematocrit 22.3, platelet count 60,000. Ammonia level noted to be decreased at 48. CMP this morning, BUN 22, creatinine 1.89, glucose 123, potassium 3.1 rather sodium 135. Bilirubin noted 10.6. IMPRESSION: 1. The patient with advanced liver disease. The patient with hepatic encephalopathy large transudative right pleural fluid, most likely related to underlying liver problem which will be considered. 2. Gastrointestinal bleeding for the patient as well. 3. Anemia secondary to acute gastrointestinal bleeding. 4. Acute thrombocytopenia secondary to liver cirrhosis. 5. Acute congestive heart failure. PLAN OF TREATMENT: Continue the patient on current plan of therapy at this time without any changes. Continue to assess the patient for the GI bleeding. Usual care, other supportive plan of management. Chest x-ray done this morning shows evidence of pleural fluid for patient with pleural fluid noted bilaterally. Correction of the electrolytes and the diuretic therapy would be continued. Avoid any excessive fluid overload. [place], [place] PROGRESS NOTE NAME: MAGDA LANG UNIT #: [id number] ROOM: [facility] DOCTOR: KAILASH VILCHIS MD BIRTHDATE: [birth year] KAILASH FORREST MD CM:PNTRANS [id number] KAILASH WILD MD 04/25/17 0507 interface
--- NOTE | ~2017-04-20 | CON ---
[place], [place] REPORT OF CONSULTATION NAME: MAGDA LANG UNIT #: [id number] ROOM: [place] [address] DOCTOR: MU IYER MD BIRTHDATE: [birth year] DOS: 04/21/2017 REASON FOR CONSULTATION: Dyspnea and tachycardia. HISTORY OF PRESENT ILLNESS: This is one of multiple hospitalizations for Magda Lang, who is a 51-year-old woman who has a history of advanced cirrhosis with ascites. She is status post TIPS procedure. Her cirrhosis is felt to be due to alcohol abuse. She does have esophageal varices and has had GI bleeding in the past. She does have a history of hypertension, jaundice, anemia, pancreatitis, thrombocytopenia and vitamin D deficiency. She has had right knee surgery in the past. She was hospitalized in February 2017 with evidence for infection on a MediPort. The MediPort was subsequently removed. She was treated with antibiotics. She returns now with persistent dyspnea accompanied by nausea and vomiting. She denies any blood in her vomitus. She does note that she has been hallucinating lately. She was evaluated by Cardiology when she was in the hospital in February. At that time, she was seen to have supraventricular tachycardia and evidence for a non-ST elevation CA, which was felt to be likely from demand ischemia. A myocardial perfusion study done on 02/04/2017 showed normal myocardial perfusion with an ejection fraction of 65%. There was no evidence for ischemia. Her most recent echocardiogram on 02/01/2017 showed normal left ventricular size and regional wall motion with an ejection fraction of 65%-70%. Diastolic function was felt to be normal. The left atrium was normal in size. Trace to mild mitral insufficiency was present. PAST MEDICAL HISTORY: Includes joint terminal attack controller alcohol abuse with history of alcohol withdrawal seizures and alcoholic cirrhosis with ascites. The patient reportedly is on a transplant list. She does have chronic anemia. She is known to have esophageal varices and has had TIPS procedure. She does have a history of hypertension, pancreatitis and SVT as well as ventricular tachycardia. As noted above, an echocardiogram and pharmacologic stress test in January 2017 showed no evidence for ischemia and normal left ventricular function. FAMILY HISTORY: The patient's father is of unknown causes. Her mother is alive at age 85 and reportedly has a bipolar disorder. Brother had sudden cardiac at age 43. REVIEW OF SYSTEMS: Unobtainable as the patient is lethargic and confused. SOCIAL HISTORY: The patient is an alcoholic. Her last drink was reportedly in November 2016. Prior to that, she drank 12 beers a day. She does not smoke or use drugs. MEDICATIONS: Prior to admission included cholecalciferol 50,000 units weekly, folic acid 1 mg daily, furosemide 40 mg b.i.d., potassium phosphate 1 tablet t.i.d., lactulose 20 g q. 8 hours, omeprazole 20 mg 2 tablets daily, Senokot 2 tablets at bedtime p.r.n. and thiamin 100 mg daily. [place], [place] REPORT OF CONSULTATION NAME: MAGDA LANG UNIT #: [id number] ROOM: [place] [address] DOCTOR: MU IYER MD BIRTHDATE: [birth year] ALLERGIES: SHE LISTED ALLERGY TO PENICILLINS. PHYSICAL EXAMINATION: GENERAL: The patient is a chronically ill-appearing white female who is lethargic and confused. VITAL SIGNS: Pulse is 90 and regular, blood pressure is 108/58. She is afebrile. NECK: Supple. She has no jugular distention. Carotids are full. She does have hepatojugular reflux. She has no carotid bruits. LUNGS: Respirations are labored at rest. She does have dullness and decreased breath sounds [facility] up on the right. Her left lung is fairly clear. She has presacral edema present. CARDIOVASCULAR: Her heart has a regular rhythm. She has a fourth heart sound, but no third heart sound. She has a grade 3/6 holosystolic murmur at the lower left sternal border radiating toward the apex. No diastolic murmurs are present. The PMI could not be felt. There is no precordial heave, lift or thrill. ABDOMEN: Distended with a fluid wave. No masses or organomegaly are obvious. EXTREMITIES: Showed 3+ edema to above the knees. Peripheral pulses are easily palpated bilaterally. I did review her electrocardiogram earlier today. It did show an ectopic atrial tachycardia or sinus tachycardia at a rate of about 140. Currently, it shows sinus rhythm. She does have decreased voltage and nonspecific ST and T-wave changes. Her chest x-ray shows a large right pleural effusion. Hemoglobin is 8.5, hematocrit 25.1. There are 13,300 white cells and 115,000 platelets present. INR is 1.5. Even though she is not on anticoagulation therapy, blood gases showed a pH of 7.339 with a pCO2 of 42.6, a pO2 of 68.6. Sodium is 130, potassium 3.4, BUN is 12, creatinine 0.82. Ammonia is 70. TSH is 4.19. Troponin levels are measurable, but unremarkable. IMPRESSIONS: 1. Hepatic cirrhosis with hepatic failure. 2. Ascites. 3. Large right pleural effusion. 4. Supraventricular tachycardia. This may be related to her underlying illnesses. Her evaluation in the past as recently as 02/01/2017 showed no significant valvular heart disease or ischemic heart disease. In the interim, however, she has had bacteremia from an infected MediPort. She does have a murmur on exam now. Endocarditis should at least be considered. Blood cultures have been obtained, but are not yet growing any pathogens. The patient does seem to respond nicely to beta blockers and I therefore would continue her on IV or oral beta blockers as needed. She is currently prescribed metoprolol succinate 25 mg b.i.d. [place], [place] REPORT OF CONSULTATION NAME: MAGDA LANG UNIT #: [id number] ROOM: [place] [address] DOCTOR: MU IYER MD BIRTHDATE: [birth year] PLAN: We will titrate that upward upwards if need be to control her heart rate. We will repeat her echocardiogram and if her blood cultures do become positive, again we probably will suggest that she undergo ODIN after speaking to Gastroenterology to make sure that we are not going to disrupt any esophageal varices. I thank the hospitalist group for asking our advice regarding her care. MU IYER MD CM:CONSTR:REPORT OF CONSULTATION 1048 04/21/17 1158 interface
--- NOTE | ~2017-04-20 | PROC NOTE ---
[place], [place] PROCEDURE NOTE NAME[id number] UNIT #: [id number] ROOM: [facility] DOCTOR: LON WILD MD,KAILASH BIRTHDATE: [birth year] DOS: 04/22/2017 PROCEDURE: Right chest tube thoracostomy. PREOPERATIVE DIAGNOSIS: Massive right pleural fluid. POSTOPERATIVE DIAGNOSIS: Successfully insertion of the chest tube, 20-Malagasy, in the right pleural space without any difficulty. PROCEDURE DESCRIPTION: Informed consent obtained. The patient was placed in a sitting position. Ultrasound of the chest was performed and the large pocket of fluid was isolated in the posterior lower portion of the right chest. 1% lidocaine was administered in the skin, intercostal space. During administration of local anesthetic, right pleural space was entered. After that, large bore needle entered into the pleural space. The free fluid was aspirated. After that, a guidewire threaded through the needle into the pleural space. The needle was removed. The incision was given at the exit site of the skin in the chest. The tract was dilated with 22-Malagasy dilator. A 20-Malagasy chest tube inserted over the guidewire by Seldinger technique without any difficulty into the right pleural space. The procedure was well tolerated by the patient. Chest tube was secured with sutures. Aseptic dressing was applied. The samples of 300 mL of pleural fluid was taken, sent to the laboratory including for cytology, chemistry and cell count with the differential. Cultures were also sent. Procedure was well tolerated by the patient at this time. No major change in treatment will be necessary. After draining about 1300 mL pleural fluid, the chest tube was clamped, which will be removed in about 15 minutes with gravity drainage for an hour. After that, the chest x-ray will be obtained to reassess the reexpansion of the lung. No additional change in treatment otherwise will be necessary. KAILASH FORREST MD CM:PROCNOTE:PROCEDURE NOTE 1601 1625 KAILASH WILD MD
--- NOTE | ~2017-04-20 | PR ---
[place], [place] PROGRESS NOTE [id number] UN[facility] #: [id number] [facility] DOCTOR: MU IYER MD BIRTHDATE: [birth year] DOS: 04/24/2017 CARDIOLOGY PROGRESS NOTE SUBJECTIVE: The patient was seen at her bedside in the intensive care unit today, 04/24/2017 for followup of her supraventricular tachycardia in the setting of end-stage hepatic failure, a large right pleural effusion and blood loss anemia. She remains awake and alert today and her ammonia levels have decreased since the last 2 days. Her chest tube remains intact and continues to drain copious amounts of fluid. Thus far, she has had 6 liters out through the tube in the last 2 days. Her hemoglobin dropped and she received 2 units of packed cells. Last night, she had a bright red rectal bleed. There was consideration for possible endoscopy, but this was canceled once the capsule inspector realized the multiplicity of the patient's comorbidities. As noted previously, her cardiac function is normal. An echocardiogram done on 04/22/2017 showed normal left ventricular size with hyperdynamic left ventricular wall motion and systolic function. The ejection fraction was estimated to be greater than 75%. Doppler indices of diastole were normal. No significant valve abnormalities were present. The patient states that she does not feel badly today, but still does note that she is having lower gastrointestinal bleeding. PHYSICAL EXAMINATION: VITAL SIGNS: Her pulse is 90 and regular, blood pressure is 111/46. She is afebrile. She weighs 98.5 kg and has a body mass index of 34. HEENT: Shows deeply jaundiced sclerae. She has a bronzed appearance to her skin. Her oral mucosa is moist. Tongue is midline. NECK: Supple. She does not have any jugular distention. Carotids are full. LUNGS: Respirations are unlabored. She has decreased breath sounds at the right base. The left lung is fairly clear. HEART: Has a regular rhythm with an S4 gallop. There is a grade 2/6 systolic murmur along the left sternal border, but no diastolic murmurs. The PMI is not displaced and there is no precordial heave, lift or thrill. ABDOMEN: Distended with a fluid wave. EXTREMITIES: Showed no ankle edema, and peripheral pulses were palpable bilaterally. LABORATORY DATA: Today, hemoglobin is 7.7 with hematocrit 22.3. There are 8000 white cells and 60,000 platelets present. INR is elevated at 1.5 even though she is not on any anticoagulant therapy. Sodium today is 135 with potassium 3.1, chloride is 103, CO2 21, BUN 22, creatinine 1.85. Her ammonia level yesterday was 82, today it is down to 48. Total protein is 5.7 with albumin of 2.2. IMPRESSION: 1. Hepatic cirrhosis with chronic hepatic failure. 2. Ascites and anasarca. 3. Large right pleural effusion. The patient had a tube thoracostomy done 48 [place], [place] PROGRESS NOTE NAME: MAGDA LANG UNIT #: [id number] ROOM: [facility] DOCTOR: MU IYER MD BIRTHDATE: [birth year] hours ago and continues to drain large quantities of fluid. 4. Supraventricular tachycardia. The patient is currently in sinus rhythm, some of this was driven by her hypoxemia, large pleural effusion, and anemia. 5. History of bacteremia from an infected MediPort. Blood cultures on this hospitalization remains sterile. PLAN: Her SVT was likely driven by anemia, hypoxemia and a large right pleural effusion. Currently, her heart rate is controlled and her blood pressure is marginal, and therefore we will stop her beta blockers for the time being. I continue to agree with keeping up with her blood losses and giving her transfusions as needed. She will also continue to need IV fluids to help maintain her central vascular volume. Her last echo showed that her left ventricular systolic and diastolic functions are normal, but that she is intravascular volume depleted and the blood and fluids will help us keep up with that. At this time, I have no other cardiac recommendations. We will continue to follow her with her other physicians and we thank the hospitalist physicians for asking our advice regarding her care. MU IYER MD CM:PNTRANS [phone] MU IYER MD 04/24/172151 interface
--- NOTE | ~2017-04-20 | PR ---
[place], [place] PROGRESS NOTE NAME: MAGDA LANG UNIT #: [id number] ROOM: [facility] DOCTOR: KAILASH VILCHIS MD BIRTHDATE: [birth year] DOS: 04/25/2017 PULMONARY FOLLOWUP SUBJECTIVE: She has a chest tube remains in place still draining significant amount of pleural fluid. The patient has been noted without any hemodynamic instability at this time. She has not reported any further bleeding at the present time. The EGD and colonoscopy not done yesterday because of the high risk described current medical illness. She was planned for transfer to [facility] for further medical management. OBJECTIVE: VITAL SIGNS: Showed normal temperature, respiratory rate of 16, heart rate 109, blood pressure 123/55 this morning. Pulse oxygen saturation 3 liters was 100% saturation. The output of the chest tube was noted as 3240 mL. HEENT: Showed no acute change. NECK: Supple. CARDIOVASCULAR: S1, S2 audible. LUNGS: Noted decreased breaths in the lower portion of the lungs bilaterally. ABDOMEN: Soft, pedo-ve-ojuzpzst in obesity. EXTREMITIES: Show no edema. LABORATORY DATA: The ammonia level today was noted at 52. CMP of 04/25/2017 noted BUN 26, creatinine 1.64, sodium 134, potassium 3.4, AST was 40. Albumin 2.2. Bilirubin has a total bilirubin elevated as 13.6. INR was noted 1.7 today. PTT 40. CBC with hemoglobin 8.1, hematocrit 23.8, and platelet count is 76,000. IMPRESSION: 1. The patient's large volume transudative pleural fluid still getting drained from the right pleural space. 2. Hepatic encephalopathy with end-stage liver failure. 3. Gastrointestinal bleeding related with esophageal varices. The patient could be considered. 4. Anemia. 5. Thrombocytopenia secondary to liver disease. PLAN OF TREATMENT: Continue chest tube drainage. Proceed with the transfer patient as planned. No additional changes in treatment at this time will be necessary. Further medical management of the chest tube. The patient is draining pleural fluid, will be receiving facility physician assessment. [place], [place] PROGRESS NOTE NAME: MAGDA LANG UNIT #: [id number] ROOM: [facility] DOCTOR: KAILASH VILCHIS MD BIRTHDATE: [birth year] KAILASH FORREST MD CM:[place] 1003 1136 KAILASH WILD MD 04/25/17 1136 interface
--- NOTE | ~2017-04-20 | CON ---
[place], [place] REPORT OF CONSULTATION [id number] UNIT #: [id number] ROOM: [place] [address] DOCTOR: LON WILD MDKAILASH BIRTHDATE: [birth year] DOS: 04/21/2017 PULMONARY CONSULTATION EVALUATION AND MANAGEMENT REASON FOR CONSULTATION: Assess the patient for large pleural effusion. HISTORY OF PRESENT ILLNESS: This is a 51-year-old white female unable to give any history. All the history has been obtained for the patient from review of the documentation by other physician records. The patient has been admitted to the Intensive Care Unit at this time with the symptoms of described as shortness of breath. The shortness of breath has been noted worsened. The patient has been also reported symptoms of nausea, vomiting with hematemesis. The patient has been described the symptoms of nonproductive cough for the last couple of months as well. The patient has been known with history of end-stage liver failure and noted in the transplant list. The patient has not been noted any symptoms of chest pain on admission. REVIEW OF SYSTEMS: Could not be completed for this patient because of the current change in mental status, related to most likely hepatic failure. The patient has a past medical history of multiple hospitalizations, the last admission was noted in this hospital in March 2017. The patient was admitted to the hospital for a couple of days for the decompensated cirrhosis at that time. She has a paracentesis done at that time with 4200 mL of ascitic fluid drained. She was discharged home after that to be followed up with the primary care physician. She presented to the hospital and readmitted to the hospital on 04/20/2017. PAST MEDICAL HISTORY: 1. Alcoholic liver cirrhosis, which has been known previously, end-stage, on the transplant list. 2. History of past esophageal varices, which had been managed. 3. History of gastrointestinal bleeding. 4. Essential hypertension. 5. Alcohol withdrawal seizure history. PAST SURGICAL HISTORY: 1. Several paracenteses in the past. 2. Right knee surgery. 3. TIPS surgery. SOCIAL HISTORY: Noted with history of past use of alcohol in the form of beer 12 per day. She has not been drinking any alcohol since 11/22/2016. She was reported as a nonsmoker. There was no history of illicit drug use described. FAMILY HISTORY: Reported the mother is living, 85 years old, with history of bipolar disorder. Father is , history was unknown. HOME MEDICATIONS: Vitamin D, folic acid, Lasix, lactulose, Prilosec, senna, thiamine, and Lasix 40 mg b.i.d. [place], [place] REPORT OF CONSULTATION NAME: MAGDA LANG UNIT #: [id number] ROOM: [place] [address] DOCTOR: LON WILD MD,KAILASH BIRTHDATE: [birth year] DRUG ALLERGIES: NOTED ALLERGY TO PENICILLIN CAUSING SKIN HIVES. PHYSICAL EXAMINATION: GENERAL: A 51-year-old white female who has been noted change in mental status. The patient does respond effectively to answer the questions. Height was noted 5 feet 7 inches, weight of 209 pounds, BMI 32.8. VITAL SIGNS: Normal temperature, respiratory rate between 18 and 20, heart rate 91-144, blood pressure 117/60-116/66. Pulse oxygen saturation on 4 liters nasal cannula 95% saturation. HEENT: Head was atraumatic. Eyes were noted with icterus. NECK: Supple. CARDIOVASCULAR: S1, S2 audible. LUNGS: The patient was noted without any crackles. Absent breath sounds noted in the right lung. Left lung noted no wheezing. ABDOMEN: Soft with some ascites. EXTREMITIES: The patient does not show any acute edema. SKIN: Showed icterus. CENTRAL NERVOUS SYSTEM: Unable to assess. There were no focal deficits. Change in mental status noted. MUSCULOSKELETAL: No gross deformities. LABORATORY DATA: Arterial blood gases that was done on 2 liters yesterday, pH of 7.32, pCO2 of 42, and pO2 of 68.6. Ultrasound of the abdomen was completed yesterday. The patient was noted with minimal ascites at that time. Arterial blood gases prior to that in the Emergency Room shows pH of 7.42, pCO2 of 35, and pO2 of 61.5. CT scan of the head was obtained yesterday (04/20/2017) in the Emergency Room, reported as no acute intracranial abnormalities. Ammonia level yesterday noted elevated at 70. CBC yesterday on admission, hemoglobin 8.8, hematocrit 25.8, WBC count normal, and platelet 58,000. Lactic acid noted at 1.6 yesterday. Past urine culture from last admission on 04/14/2017 was noted with evidence of VRE. The CMP that was done on 04/21/2017 noted normal BUN and creatinine. Sodium 130, potassium 3.4. AST 61, ALT normal, alkaline phosphatase 223, total bilirubin 13.8, and albumin 2.0. PT/INR was noted 1.5, PTT 35.3. Ammonia level this morning was noted as 67. Troponin was noted 0.052. ABG this morning was repeated again, shows pH of 7.31, pCO2 of 45, and pO2 of 120 on 4 L nasal cannula. Ultrasound of the abdomen was completed again this morning, was noted no intraabdominal ascites, right pleural fluid was again noted. Chest x-ray showed large right-sided pleural fluid. CT of the chest ____ pulmonary embolism. Large right pleural fluid noted. Area of compression atelectasis because of that. IMPRESSION: 1. The patient with large right pleural fluid. The patient with change in mental status with hepatic failure with history of chronic liver cirrhosis as well. 2. Encephalopathy causing current change in mental status. She was also noted some hypercarbia related to the current pulmonary disease. The pleural fluid etiology would be considered most likely related to the cardiac in origin ____. There was no evidence of ascites noted at the present time. 3. Tachycardia, previously seemed to be resolved with current medical [place], [place] REPORT OF CONSULTATION NAME: MAGDA LANG Colin UNIT #: [id number] ROOM: [place] [address] DOCTOR: BRIAN VILCHIS MDM BIRTHDATE: [birth year] management. Currently noted mild sinus tachycardia with heart rate of 109 beats per minute. 4. 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 5. Coagulopathy related to the liver dysfunction. PLAN OF MANAGEMENT: The consent needs to be obtained from the family member. The patient would not be able to give the consent because of change in mental status. After the chest tube inserted, use the BiPAP if necessary initially and consider intubation in case of progressive worsening of the respiratory status. All other usual medical management plan to be continued. Supportive therapy, plan of care as in progress. Usual care as previously. Continue current medical management of hepatic encephalopathy. Usual care. Look for any other source of sepsis or infection. The repeat cultures of the urine taken on 04/20/2017 so far showed no bacterial growth. Thanks for allowing me to participate in the care of this patient. KAILASH FORREST MD CM:CONSTR:REPORT OF CONSULTATION [id number] 04/21/17 2008 interface
[~2017-04-20 11:03] MED LIST changes: +PHOSPHA 250 NEU1 TAB PO
[2017-04-20 11:41] LABS: BASO # 0.1 10*3/uL (0.0-0.1); BASO % 0.6 % (0.0-1.0); EOS # 0.3 10*3/uL (0.0-0.4); EOS % 4.1 % (1.0-4.0); HEMATOCRIT 25.8 % (37.0-47.0); HEMOGLOBIN 8.8 g/dl (12.0-16.0); IG # 0.1 10*3/uL (0.0-0.1); LYMPH # 0.8 10*3/uL (1.3-4.4); LYMPH % 9.1 % (27.0-41.0); MEAN CELL VOLUME 94.5 fl (81.0-99.0); MEAN CORPUSCULAR HGB 32.2 pg (27.0-31.0); MEAN CORPUSCULAR HGB CONC 34.1 g/dl (33.0-37.0); MEAN PLATELET VOLUME 11.8 fl (9.6-12.3); MONO # 0.7 10*3/uL (0.1-1.0); NEUT # 6.4 10*3/uL (2.3-7.9); PLATELET COUNT AUTOMATED 58 10*3/uL (130-400); RED BLOOD COUNT 2.73 10*6/uL (4.10-5.10); RED CELL DISTRI WIDTH 18.4 % (0-14.5); WHITE BLOOD COUNT 8.3 10*3/uL (4.8-10.8)
[2017-04-20 11:50] LABS: INTERNATIONAL NORM RATIO 1.5 (2.0-3.5); PROTHROMBIN TIME 16.7 SECONDS (9.0-12.4)
[2017-04-20 11:56] LABS: ALBUMIN 2.1 gm/dl (3.1-4.5); ALKALINE PHOSPHATASE 226 U/L (45-117); BILIRUBIN, TOTAL 12.9 mg/dl (0.2-1.0); BUN 13 mg/dl (7-24); C-REACTIVE PROTEIN 2.24 MG/DL (0-0.3); CARBON DIOXIDE 23 mmol/L (21-32); CHLORIDE 95 mmol/L (98-107); EST GLOM FILT AFRICAN AMERICAN > 60 ml/min; GLUCOSE 108 mg/dL (65-99); POTASSIUM 2.6 mmol/L (3.5-5.1); SGOT/AST 57 IU/L (3-35); SGPT/ALT 34 U/L (12-78); SODIUM 130 mmol/L (136-145); TOTAL PROTEIN 6.5 gm/dL (6.4-8.2)
[2017-04-20 11:59] LABS: TROPONIN I 0.025 ng/ml (<0.045)
[2017-04-20 12:01] LABS: MAGNESIUM 0.9 mg/dL (1.5-2.1)
[2017-04-20 12:17] LABS: ABG BASE EXCESS -0.7 mmol/L (-2.0-2.0); ABG HCO3 22.9 mmol/l (22-26); ABG TEMPERATURE 98.3 F (98.0-99.0); ARTERIAL BLOOD GAS PH 7.426 (7.35-7.45); ARTERIAL BLOOD GAS PO2 61.5 mmHg (80-90)
[2017-04-20 12:58] LABS: BILIRUBIN 2+ (NEGATIVE); BLOOD TRACE-INTACT (NEGATIVE); CLARITY SL CLOUDY (CLEAR); COLOR YELLOW (YELLOW); GLUCOSE NEGATIVE (NEGATIVE); KETONE TRACE (NEGATIVE); LEUKO ESTERASE TRACE (NEGATIVE); NITRITE NEGATIVE (NEGATIVE); PROTEIN NEGATIVE (NEGATIVE); SPECIFIC GRAVITY <= 1.005 (1.005-1.030)
[2017-04-20 13:05] LABS: BACTERIA TRACE; URINE REFLEX COMMENT YES (NO)
[2017-04-20] MEDS ORDERED: GENERLAC10 GM/15 M PO (13:57)
[2017-04-20] MEDS ORDERED: VITAMIN D50000 UNIT PO (14:11)
[2017-04-20] MEDS ORDERED: SENNA CONCENTR8.6 M1 PO (14:15)
[2017-04-20 16:17] LABS: ABG BASE EXCESS -2.7 mmol/L (-2.0-2.0); ABG CO2 CONTENT 23.9 mmol/L (23-27); ABG HCO3 22.5 mmol/l (22-26); ABG TEMPERATURE 97.5 F (98.0-99.0); ARTERIAL BLOOD GAS PH 7.339 (7.35-7.45); ARTERIAL BLOOD GAS PO2 68.6 mmHg (80-90)
[2017-04-21] VITALS (7 sets, daily range): BP systolic 100–117; BP diastolic 47–66
[2017-04-21 05:55] LABS: HEMATOCRIT 25.1 % (37.0-47.0); HEMOGLOBIN 8.5 g/dl (12.0-16.0); MEAN CELL VOLUME 97.3 fl (81.0-99.0); MEAN CORPUSCULAR HGB 32.9 pg (27.0-31.0); MEAN CORPUSCULAR HGB CONC 33.9 g/dl (33.0-37.0); MEAN PLATELET VOLUME 10.6 fl (9.6-12.3); RED BLOOD COUNT 2.58 10*6/uL (4.10-5.10); RED CELL DISTRI WIDTH 18.5 % (0-14.5); WHITE BLOOD COUNT 13.3 10*3/uL (4.8-10.8)
[2017-04-21 06:15] LABS: ALKALINE PHOSPHATASE 223 U/L (45-117); BILIRUBIN, TOTAL 13.8 mg/dl (0.2-1.0); BUN 12 mg/dl (7-24); CARBON DIOXIDE 23 mmol/L (21-32); CHLORIDE 97 mmol/L (98-107); EST GLOM FILT AFRICAN AMERICAN > 60 ml/min; FREE T4 3.18 ng/dl (0.76-1.46); GLUCOSE 124 mg/dL (65-99); MAGNESIUM 1.6 mg/dL (1.5-2.1); PHOSPHOROUS 4.2 mg/dL (2.5-4.9); POTASSIUM 3.4 mmol/L (3.5-5.1); SGOT/AST 61 IU/L (3-35); SGPT/ALT 33 U/L (12-78); SODIUM 130 mmol/L (136-145); TOTAL PROTEIN 6.4 gm/dL (6.4-8.2)
[2017-04-21 06:48] LABS: FOLIC ACID 23.51 ng/mL (>5.38); VITAMIN D, 25-HYDROXY 27.7 ng/mL (30-100)
[2017-04-21 06:55] LABS: INTERNATIONAL NORM RATIO 1.5 (2.0-3.5); PROTHROMBIN TIME 15.8 SECONDS (8.9-12.2)
[2017-04-21 07:08] LABS: PLATELET COUNT AUTOMATED 115 10*3/uL (130-400)
[2017-04-21 07:09] LABS: EOSINOPHIL # 0.1 10*3/uL (0-0.4); EOSINOPHILS 1 % (1-4); LYMPHOCYTE # 0.4 10*3/uL (1.3-4.4); METAMYELOCYTES 1 % (0-0); MONOCYTE # 0.3 10*3/uL (0.1-1.0); NEUTROPHIL # 12.4 10*3/uL (2.3-7.9); NEUTROPHILS 93 % (47-73); TOTAL CELLS COUNTED 100 #CELLS
[2017-04-21 07:10] LABS: ACANTHOCYTES FEW; PLATELET SUFFICIENCY LOW (NORMAL); POLYCHROMASIA SLIGHT; SCHISTOCYTES FEW
[2017-04-21 10:54] LABS: ABG BASE EXCESS -3.1 mmol/L (-2.0-2.0); ABG CO2 CONTENT 23.9 mmol/L (23-27); ABG HCO3 22.5 mmol/l (22-26); ABG TEMPERATURE 97.9 F (98.0-99.0); ARTERIAL BLOOD GAS PH 7.315 (7.35-7.45)
[2017-04-22] VITALS (12 sets, daily range): BP systolic 76–109; BP diastolic 26–51
[2017-04-22 05:43] LABS: ABG BASE EXCESS -2.1 mmol/L (-2.0-2.0); ABG CO2 CONTENT 25.2 mmol/L (23-27); ABG HCO3 23.7 mmol/l (22-26); ABG TEMPERATURE 97.5 F (98.0-99.0); ARTERIAL BLOOD GAS PH 7.31 (7.35-7.45); ARTERIAL BLOOD GAS PO2 41.4 mmHg (80-90)
[2017-04-22 06:19] LABS: ALBUMIN 1.9 gm/dl (3.1-4.5); ALKALINE PHOSPHATASE 211 U/L (45-117); BILIRUBIN, TOTAL 11.8 mg/dl (0.2-1.0); BUN 13 mg/dl (7-24); CARBON DIOXIDE 24 mmol/L (21-32); CHLORIDE 99 mmol/L (98-107); EST GLOM FILT AFRICAN AMERICAN > 60 ml/min; GLUCOSE 120 mg/dL (65-99); POTASSIUM 3.5 mmol/L (3.5-5.1); SGOT/AST 58 IU/L (3-35); SGPT/ALT 31 U/L (12-78); SODIUM 131 mmol/L (136-145)
[2017-04-22 06:22] LABS: BASO % 0.3 % (0.0-1.0); EOS # 0.4 10*3/uL (0.0-0.4); EOS % 3.4 % (1.0-4.0); HEMATOCRIT 23.7 % (37.0-47.0); IG # 0.2 10*3/uL (0.0-0.1); LYMPH # 0.6 10*3/uL (1.3-4.4); LYMPH % 5.2 % (27.0-41.0); MEAN CELL VOLUME 97.9 fl (81.0-99.0); MEAN CORPUSCULAR HGB 33.1 pg (27.0-31.0); MEAN CORPUSCULAR HGB CONC 33.8 g/dl (33.0-37.0); MEAN PLATELET VOLUME 10.5 fl (9.6-12.3); MONO # 1.1 10*3/uL (0.1-1.0); MONO % 8.8 % (3.0-9.0); NEUT # 9.6 10*3/uL (2.3-7.9); NEUT % 80.8 % (47.0-73.0); PLATELET COUNT AUTOMATED 102 10*3/uL (130-400); RED BLOOD COUNT 2.42 10*6/uL (4.10-5.10); RED CELL DISTRI WIDTH 18.7 % (0-14.5); WHITE BLOOD COUNT 11.9 10*3/uL (4.8-10.8)
[2017-04-22 11:00] LABS: BODY FLUID RBC 1000 /uL; BODY FLUID WBC 434 /uL
[2017-04-22 11:31] LABS: BODY FLUID ALBUMIN 0.5 g/dL; BODY FLUID AMYLASE 9 U/L; BODY FLUID CHOLESTEROL < 50 mg/dl; BODY FLUID GLUCOSE 128 mg/dl; BODY FLUID LDH 68 IU/L; BODY FLUID PROTEIN 1.2 g/dl; BODY FLUID TRIGLYCERIDE 33 mg/dl
[2017-04-22 11:49] LABS: BF LYMPHOCYTES 7 %; BF MACROPHAGES 73 %; BF MESOTHELIALS 4 %; BF MONOCYTES 4 %; BF NEUTROPHILS 11 %
[2017-04-22 12:56] LABS: BODY FLUID TYPE PLEURAL
[2017-04-23] VITALS (13 sets, daily range): BP systolic 80–99; BP diastolic 23–60
[2017-04-23 05:54] LABS: ALBUMIN 1.8 gm/dl (3.1-4.5); BILIRUBIN, TOTAL 8.8 mg/dl (0.2-1.0); POTASSIUM 3.4 mmol/L (3.5-5.1); TOTAL PROTEIN 5.4 gm/dL (6.4-8.2)
[2017-04-23 06:15] LABS: BASO % 0.3 % (0.0-1.0); EOS # 0.3 10*3/uL (0.0-0.4); EOS % 2.9 % (1.0-4.0); HEMATOCRIT 20.4 % (37.0-47.0); IG # 0.1 10*3/uL (0.0-0.1); LYMPH # 0.9 10*3/uL (1.3-4.4); LYMPH % 9.8 % (27.0-41.0); MEAN CELL VOLUME 98.6 fl (81.0-99.0); MEAN CORPUSCULAR HGB 33.8 pg (27.0-31.0); MEAN CORPUSCULAR HGB CONC 34.3 g/dl (33.0-37.0); MEAN PLATELET VOLUME 11.1 fl (9.6-12.3); MONO # 0.9 10*3/uL (0.1-1.0); MONO % 10.1 % (3.0-9.0); NEUT # 6.6 10*3/uL (2.3-7.9); NEUT % 75.9 % (47.0-73.0); PLATELET COUNT AUTOMATED 73 10*3/uL (130-400); RED BLOOD COUNT 2.07 10*6/uL (4.10-5.10); RED CELL DISTRI WIDTH 18.8 % (0-14.5); WHITE BLOOD COUNT 8.7 10*3/uL (4.8-10.8)
[2017-04-24] VITALS (13 sets, daily range): BP systolic 98–125; BP diastolic 39–60
[2017-04-24 05:51] LABS: ALBUMIN 2.2 gm/dl (3.1-4.5); BILIRUBIN, TOTAL 10.6 mg/dl (0.2-1.0); POTASSIUM 3.1 mmol/L (3.5-5.1); TOTAL PROTEIN 5.7 gm/dL (6.4-8.2)
[2017-04-24 06:25] LABS: BASO % 0.3 % (0.0-1.0); EOS # 0.2 10*3/uL (0.0-0.4); EOS % 2.5 % (1.0-4.0); HEMATOCRIT 22.3 % (37.0-47.0); HEMOGLOBIN 7.7 g/dl (12.0-16.0); IG # 0.1 10*3/uL (0.0-0.1); LYMPH # 0.7 10*3/uL (1.3-4.4); LYMPH % 8.1 % (27.0-41.0); MEAN CELL VOLUME 97.4 fl (81.0-99.0); MEAN CORPUSCULAR HGB 33.6 pg (27.0-31.0); MEAN CORPUSCULAR HGB CONC 34.5 g/dl (33.0-37.0); MEAN PLATELET VOLUME 11.4 fl (9.6-12.3); MONO # 0.9 10*3/uL (0.1-1.0); MONO % 11.2 % (3.0-9.0); NEUT # 6.1 10*3/uL (2.3-7.9); NEUT % 76.8 % (47.0-73.0); PLATELET COUNT AUTOMATED 60 10*3/uL (130-400); RED BLOOD COUNT 2.29 10*6/uL (4.10-5.10); RED CELL DISTRI WIDTH 19.1 % (0-14.5)
[2017-04-24] MEDS ORDERED: XIFAXAN550 MG PO (15:13)
[2017-04-24] MEDS ORDERED: CEFEPIME2 GM/100 M IV (15:13)
[2017-04-24] MEDS ORDERED: LEVOFLOXAC750 MG/150 IV (15:13)
[2017-04-24] MEDS ORDERED: NYSTOP100000 U/G T (15:13)
[2017-04-24] MEDS ORDERED: SANDOSTATI500 MCG/ML IV (15:13)
[2017-04-25] VITALS: BP 131/56
[2017-04-25 04:00] VITALS: BP 123/55
[2017-04-25 05:15] LABS: ALBUMIN 2.2 gm/dl (3.1-4.5); BILIRUBIN, TOTAL 13.6 mg/dl (0.2-1.0); POTASSIUM 3.4 mmol/L (3.5-5.1); TOTAL PROTEIN 5.3 gm/dL (6.4-8.2)
[2017-04-25 06:10] LABS: HEMATOCRIT 23.8 % (37.0-47.0); HEMOGLOBIN 8.1 g/dl (12.0-16.0); MEAN CELL VOLUME 96.4 fl (81.0-99.0); MEAN CORPUSCULAR HGB 32.8 pg (27.0-31.0); MEAN PLATELET VOLUME 11.6 fl (9.6-12.3); RED BLOOD COUNT 2.47 10*6/uL (4.10-5.10); RED CELL DISTRI WIDTH 19.3 % (0-14.5); WHITE BLOOD COUNT 9.4 10*3/uL (4.8-10.8)
[2017-04-25 06:15] LABS: PLATELET COUNT AUTOMATED 76 10*3/uL (130-400)
[2017-04-25 06:23] LABS: INTERNATIONAL NORM RATIO 1.7 (2.0-3.5); PROTHROMBIN TIME 19.2 SECONDS (9.0-12.4)
[2017-04-25 07:02] LABS: BASOPHIL # 0.1 10*3/uL (0-0.1); BASOPHILS 1 % (0-1); BURR CELLS FEW; EOSINOPHIL # 0.2 10*3/uL (0-0.4); EOSINOPHILS 2 % (1-4); LYMPHOCYTE # 0.3 10*3/uL (1.3-4.4); METAMYELOCYTES 1 % (0-0); MONOCYTE # 0.7 10*3/uL (0.1-1.0); MYELOCYTES 1 % (0-0); NEUTROPHILS 85 % (47-73); PLATELET SUFFICIENCY LOW (NORMAL); POLYCHROMASIA SLIGHT; ROULEAUX MODERATE; TOTAL CELLS COUNTED 100 #CELLS
[2017-04-25 07:06] LABS: MAGNESIUM 1.4 mg/dL (1.5-2.1); PHOSPHOROUS 3.4 mg/dL (2.5-4.9)
[2017-04-25 08:00] VITALS: BP 128/53
== END 2017-04-25 09:44 | disposition short-term general hospital (02) | DRG 441 ==
LOC: ED 11:03 → ICCU 13:21 → EDHOLD 13:21 → ICCU 13:46
PROVIDERS: Internal Medicine; Internal Medicine Critical Care Medicine; Internal Medicine Gastroenterology; Student in an Organized Health Care Education/Training Program
PROC: 0W9930Z Drainage of Right Pleural Cavity with Drainage Device, Percutaneous Approach (ICD-10-PCS; principal; 2017-04-22)
PROC: 02HV33Z Insertion of Infusion Device into Superior Vena Cava, Percutaneous Approach (ICD-10-PCS; 2017-04-22)
PROC: B548ZZA Ultrasonography of Superior Vena Cava, Guidance (ICD-10-PCS; 2017-04-22)
PROC: 30233N1 Transfusion of Nonautologous Red Blood Cells into Peripheral Vein, Percutaneous Approach (ICD-10-PCS; 2017-04-23)
DX: K72.90 Hepatic failure, unspecified without coma (principal); J96.01 Acute respiratory failure with hypoxia; E43 Unspecified severe protein-calorie malnutrition; I85.11 Secondary esophageal varices with bleeding; J90 Pleural effusion, not elsewhere classified; J18.9 Pneumonia, unspecified organism; J96.02 Acute respiratory failure with hypercapnia; E72.20 Disorder of urea cycle metabolism, unspecified; D68.9 Coagulation defect, unspecified; R65.10 Systemic inflammatory response syndrome (SIRS) of non-infectious origin without acute organ dysfunction; E87.1 Hypo-osmolality and hyponatremia; S42.301A Unspecified fracture of shaft of humerus, right arm, initial encounter for closed fracture; I47.1 Supraventricular tachycardia; F10.10 Alcohol abuse, uncomplicated; W19.XXXA Unspecified fall, initial encounter; I11.0 Hypertensive heart disease with heart failure; D63.8 Anemia in other chronic diseases classified elsewhere; K70.31 Alcoholic cirrhosis of liver with ascites; E80.6 Other disorders of bilirubin metabolism; E87.6 Hypokalemia; Y95 Nosocomial condition; I50.9 Heart failure, unspecified; D69.6 Thrombocytopenia, unspecified; E87.8 Other disorders of electrolyte and fluid balance, not elsewhere classified; R73.9 Hyperglycemia, unspecified; Z68.32 Body mass index [BMI] 32.0-32.9, adult; Z76.82 Awaiting organ transplant status; Z81.8 Family history of other mental and behavioral disorders; Z82.49 Family history of ischemic heart disease and other diseases of the circulatory system; Z88.0 Allergy status to penicillin; Z79.899 Other long term (current) drug therapy; I25.2 Old myocardial infarction; Y93.89 Activity, other specified; Y92.89 Other specified places as the place of occurrence of the external cause; Y99.8 Other external cause status

== ENCOUNTER 2017-05-07 04:52 | Inpatient (IN) | payer OTHER ==
[2017-05-07] VITALS (39 sets, daily range): BP systolic 73–95; BP diastolic 23–56
[~2017-05-07] VITALS: Ht 165.1 cm; Wt 79.1 kg
--- NOTE | ~2017-05-07 | PR ---
[place], [place] PROGRESS NOTE NAME: MAGDA LANG UNIT #: [id number] ROOM: 419 DOCTOR: LON WILD MD,KAILASH BIRTHDATE: [birth year] DOS: 05/16/2017 SUBJECTIVE: The patient remained in the hospital for the past one week, not seen as bed was not available. 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 She has been noted without symptoms of acute shortness of breath, coughing, chest pain or sputum expectoration. PHYSICAL EXAMINATION: VITAL SIGNS: Recorded showed the temperature normal, respiratory rate 18, heart rate 109, blood pressure 109/33. Pulse oxygen saturation noted on 2 liters nasal cannula 99% saturation. HEENT: Shows no acute change. NECK: Supple. CARDIOVASCULAR: S1, S2 audible. LUNGS: Decreased breath sounds in the right lower chest. ABDOMEN: Soft, nontender. LABORATORY DATA: CBC of this morning: WBC count normal, hemoglobin 10.4, hematocrit 30.0, platelet count 106,000. INR noted at 1.7 with PTT elevated at 39.8. The chest x-ray that was done was reviewed, 1-view x-ray film. DICTATION ENDS HERE. KAILASH FORREST MD CM:PNTRANS [id number] KAILASH WILD MD 05/17/17134 interface
--- NOTE | ~2017-05-07 | PR ---
[place], [place] PROGRESS NOTE NAME: MAGDA LANG UNIT #: [id number] ROOM: 419 DOCTOR: KAILASH VILCHIS MD BIRTHDATE: [birth year] DOS: 05/17/2017 PULMONARY FOLLOWUP SUBJECTIVE: The patient was supposedly to be transferred to another tertiary care facility at this time, which has been pending. She has been noted with some confusional status this morning, was still arousable with the vocal commands. She has not been noted symptoms of chest pain or cough. OBJECTIVE: VITAL SIGNS: Shows temperature normal, respirations 20, heart rate 113 with sinus tachycardia, blood pressure 133/54. Pulse oxygen saturation of the patient was noted on 2 L nasal cannula 97% saturation. HEENT: Examination shows deep icterus. NECK: Supple. Head was atraumatic. CARDIOVASCULAR: S1, S2 audible. LUNGS: The patient was noted with persistent decreased breath sounds on the right lung. ABDOMEN: Soft with mild ascites. EXTREMITIES: Shows no edema. LABORATORY DATA: CBC of the patient that was done this morning, normal WBC count and platelet count, hemoglobin 10.3, hematocrit 29.0. BMP this morning, BUN and creatinine was normal, glucose was normal, sodium 134. Ammonia level was noted 118. ABG that was done yesterday afternoon, pH is 7.36, pCO2 of 40, pO2 of 61.7. IMPRESSION: 1. The patient has been noted with recurrence of the large right hydrothorax, which has been previously drained. 2. Advanced hepatic failure for this patient and liver cirrhosis as well. 3. The patient with intermittent ascites, which has been previously tapped with paracentesis. PLAN OF MANAGEMENT: Continuation of the patient's current therapy, plan of management at this time. Transfer the patient to another facility on availability of bed. Continue maximizing medical management of hepatic encephalopathy and liver failure. [place], [place] PROGRESS NOTE NAME: MAGDA LANG UNIT #: [id number] ROOM: 419 DOCTOR: KAILASH VILCHIS MD BIRTHDATE: [birth year] KAILASH FORREST MD CM:PNTRANS [id number] KAILASH WILD MD 05/17/17 1525 interface
--- NOTE | ~2017-05-07 | PR ---
[place], [place] PROGRESS NOTE NAME: MAGDA LANG [facility] #: [id number] UNIT #: [id number] ROOM: 419 DOCTOR: LON WILD MD,KAILASH BIRTHDATE: [birth year] DOS: 05/16/2017 SUBJECTIVE: The patient continued to be treated in the hospital since 05/07/2017. I have not seen the patient for the past 6 days. She has noted comfortable at this time. The current area of drainage of the left chest wall has been covered with gauze, which has not been noted any drainage with the sutures in place. The patient has not been noted any symptoms of chest pain or any abdominal pain. She has been noted awake, alert, and oriented. She denies symptoms of hemoptysis. OBJECTIVE: VITAL SIGNS: Which were recorded for this patient showed the temperature noted as normal. The respiratory rate for the patient was recorded as 18-22. Heart rate of 109-130 with sinus tachycardia. Blood pressure 119/57-109/33. Pulse oxygen saturation of the patient was recorded on 2 L nasal cannula 99% saturation. HEENT: Head was atraumatic. Eyes nonicterus. Some bleeding from the mouth was noted, which is fresh, but noted only small amount. NECK: Supple. CARDIOVASCULAR: S1, S2 is audible. LUNGS: Noted with severe decreased breath sounds on the right chest auscultation. Left lung was noted clear. ABDOMEN: Noted soft with mild distention, possibility of ascites. LABORATORY DATA: The CBC that was done this morning noted with hemoglobin 10.4, hematocrit 30.0, platelet count 106,000, WBC count was normal. The PT/INR for the patient was noted today as 1.7. PTT is 39.8. The CMP of the patient on the was noted with bilirubin further elevated, at the total bilirubin 18.7. AST was 38. Alkaline phosphatase 198. Albumin 2.7. The chest x-ray of the patient that was done yesterday shows recurrence of the large pleural fluid was noted almost two-thirds of the right lung was noted with complete atelectasis. The fluid does not appear to be loculated. IMPRESSION: 1. The patient who has been noted with current hepatic hydrothorax. The calculation of Child-Grijalva score was noted for this patient as 11 with category C for this patient would be considered. The patient does have bacteremia Staph epidermidis, which has been treated. The patient also getting gram-negative coverage with the meropenem for this patient as well. 2. Advanced alcoholic liver cirrhosis. The patient currently has a tube in place since her last admission in [facility]. 3. Coagulopathy related to the liver dysfunction. PLAN OF TREATMENT: The patient's prognosis for this condition is noted extremely poor. The other intervention for the patient that has been tried ____ refractory, hydrothorax would be considered a surgical intervention with repair of the defect of the right hemidiaphragm or chemical pleurodesis. The patient's prognosis is currently considered extremely poor. The current finding to be discussed with the team at the [facility] if they could offer further intervention for ____ hydrothorax. Since the patient not noted [place], [place] PROGRESS NOTE NAME: MAGDA LANG UNIT #: [id number] ROOM: 419 DOCTOR: KAILASH VILCHIS MD BIRTHDATE: [birth year] currently a candidate, which has been placed on a transplant list because of lack of attending the AA classes as well as a 6-month free interval free from alcohol. Because of the patient's current hospitalization for the past few weeks, she has not been able to do any of the above. The fistulous tract of the patient in the right hemithorax has spontaneous been closed and not noted with any further drainage of pleural fluid for the past few days. The assessment and management of the patient and possibility of transfer ___ were discussed with Dr. Breonna Baxter personally on the phone. KAILASH FORREST MD CM:PNTRANS [id number] KAILASH WILD MD 05/17/174 interface
--- NOTE | ~2017-05-07 | CON ---
[place], [place] REPORT OF CONSULTATION NAME: MAGDA LANG UNIT #: [id number] ROOM: [place] [address] DOCTOR: KAILASH VILCHIS MD BIRTHDATE: [birth year] DOS: 05/08/2017 REASON FOR CONSULTATION: Assess the patient for previous known pleural fluid and current drainage from the site of the past chest tube placement and pigtail catheter insertion. HISTORY OF PRESENT ILLNESS: A 51-year-old white female who has been known to id. The patient has been admitted to the hospital recently in [place]. The patient remained at the hospital from the date of 04/20/2017 until 04/24/2017. The patient noted with massive right pleural fluid, has a chest tube inserted for drainage of pleural fluid. The chest tube was inserted for the patient on 12/2016. She was draining more than 2-3 liters of pleural fluid every day from the right pleural space. The patient has been known with history of advanced liver disease with hepatic failure. She was transferred to [facility]. She has been managed at [facility], later on transferred to the [facility]. The patient is currently being assessed for possible candidate for the liver transplant. During her hospitalization at [facility], the patient had a TIPS procedure performed. The chest tube of the patient was removed and has a pigtail catheter insertion at the site of the previous chest tube. Pigtail catheter was removed. The patient was still noted oozing of yellowish-simental fluid from the previous chest tube site. Currently, the patient has colostomy bag in place, which has been connected to the urine drainage bag for the patient for fluid collection. The patient was still noted with intermittent fluid drainage from that site. She denies symptoms of acute shortness of breath at this time. Denies symptoms of chest pain. Denies any symptoms of coughing or hemoptysis. The patient has been transferred from [facility] on 05/05/2017 and has been readmitted to the [facility] because of generalized weakness and fatigue. The patient denies any symptoms of chest pain. REVIEW OF SYSTEMS: CONSTITUTIONAL: Fatigue and tiredness noted without symptoms of fever or chills. EYES: Denies any burning, redness, or tenderness. EARS, NOSE, THROAT: No sore throat, hoarseness, otalgia, postnasal drainage. CARDIOVASCULAR SYSTEM: Denies anginal pain, edema or pain of the lower extremities. GASTROINTESTINAL: Dysphagia, nausea, vomiting, diarrhea and intermittent abdominal distention noted from past history of ascites. GENITOURINARY SYSTEM: Denies dysuria, suprapubic pain, hematuria. MUSCULOSKELETAL SYSTEM: Denies acute joint pain, redness, or tenderness. CENTRAL NERVOUS SYSTEM: Generalized weakness and fatigue were noted without symptoms of fever or chills. Remaining systems were reviewed with the patient, they were noted all negative. PAST MEDICAL HISTORY: 1. Advanced liver cirrhosis with hepatic failure and insufficiency. 2. History of esophageal varices with gastrointestinal bleeding. 3. History of essential hypertension. [place], [place] REPORT OF CONSULTATION NAME: MAGDA LANG UNIT #: [id number] ROOM: [place] [address] DOCTOR: BRIAN VILCHIS MDM BIRTHDATE: [birth year] 4. Alcohol withdrawal seizures. 5. Transudative large pleural fluid accumulation in the right hemithorax. PAST SURGICAL HISTORY: 1. Several paracenteses. 2. Right knee surgery. 3. TIPS procedure, which were repeated again for the patient in 04/2017 at [facility]. 4. Left chest tube thoracostomy in 04/20/2017 followed by the catheter insertion and removal. 5. Several EGDs in the past. SOCIAL HISTORY: The patient has been known with history of alcohol use in the form of about 12 beers a day, which has been discontinued since 11/2016. There was no history of illicit drug use. FAMILY HISTORY: The patient reported that mother is living, 85 years old with history of bipolar disorder. Father from unknown medical illnesses. MEDICATIONS: Current administered medication was noted as use of lactulose, potassium phosphate, Lasix, zinc sulfate, Thiamine, folic acid, omeprazole, Protonix, nystatin, rifampin, and morphine p.r.n. pain management. DRUG ALLERGIES: PENICILLINS. PHYSICAL EXAMINATION: GENERAL: This is a 51-year-old female who has been noted currently awake and alert without any distress. Height of 5 feet 5 inches, weight of 181 pounds, BMI of 30.1. VITAL SIGNS: The patient noted as normal temperature since admission of yesterday. The respiratory rate 16-18, heart rate 87-86, blood pressure of lowest 78/39, this morning noted 107/44. Intake for the patient recorded at 3170 mL, the drainage of the chest pleural cavity, right pleural cavity was noted 110 mL. Urinary output were noted 1125 mL. Positive difference 1750 mL. The pulse oxygen saturation on room air was 96% saturation. HEENT: Shows very deep icterus. The patient was noted with jaundice. Head was atraumatic. NECK: Supple. CARDIOVASCULAR SYSTEM: S1, S2 audible. LUNGS: Noted with decreased breath sound in the right lower lung. ABDOMEN: Soft with [id number] distention. Bowel sounds present and nontender. EXTREMITIES: Show no edema. LABORATORY DATA: CBC: 05/07/2017 on admission, WBC count was noted normal, hemoglobin 6.2, hematocrit 18.3, platelet count 79,000. BMP on admission for the patient noted as glucose 150, BUN 13, creatinine was normal. Sodium 133, potassium 3.2. LFTs were noted with albumin 2.1, bilirubin of 7.0. Total bilirubin direct bilirubin 4.6. AST 48. Magnesium 1.0. Lipase was normal. Chest x-ray of the patient one-view, which was done was reviewed personally on [place], [place] REPORT OF CONSULTATION NAME: MAGDA LANG UNIT #: [id number] ROOM: [place] [address] DOCTOR: LON WILD MD,[facility] BIRTHDATE: [birth year] 05/07/2017 for the patient show pulmonary venous congestion with area of basilar atelectasis in right lower lung with possibility of associated some pleural fluid cannot be completely excluded. CMP this morning, BUN 17, creatinine 1.1. Glucose 136, potassium 3.3, sodium 133, bilirubin was noted as 8.5. Urine culture showed no bacterial growths. IMPRESSION: 1. The patient has not been noted with chronic pleural fluid on the right side, etiology is unclear, but noted transudative effusion may be related to the ascites and sympathetic pleural fluid accumulation secondary to alcoholic liver cirrhosis for the patient would be considered. 2. Residual fluid drainage with fistula of the patient noted in the thoracic wall with intermittent drainage of pleural fluid. 3. Advanced liver disease for this patient was also known. 4. The patient with past history of alcohol administration. 5. The patient with history of paracentesis as well with hepatic encephalopathy. PLAN OF MANAGEMENT: At this time continue current symptomatic management of pleural fluid. The patient will not require any acute intervention from the pulmonary standpoint for the current pleural fluid drainage. Continue to collect the pleural fluid for the patient as done with the current colostomy bag drainage. Other supportive therapy, plan of management. Usual care. Additional treatment changes will be done based on the progression of the illness. Usual care, plan of therapy and care. Correct the electrolyte imbalance. Look for any underlying infection. Findings of the chest x-ray is not consistent with acute pneumonia, most likely it is an atelectasis with some pleural fluid. Thanks for allowing me to participate in the care of this patient. KAILASH FORREST MD CM:CONSTR:REPORT OF CONSULTATION 1404 05/09/17 0149 interface
--- NOTE | ~2017-05-07 | PR ---
[place], [place] PROGRESS NOTE NAME: MAGDA LANG UNIT #: [id number] ROOM: 402 DOCTOR: KAILASH VILCHIS MD BIRTHDATE: [birth year] DOS: 05/09/2017 PULMONARY PROGRESS NOTE SUBJECTIVE: She has been comfortably resting in the bed. Denies any acute shortness of breath. Denies symptoms of chest pain. Pleural fluid drainage was still noted significant amount from the right thoracic cavity. The patient denies any symptoms of abdominal pain. OBJECTIVE: VITAL SIGNS: For the patient which has been recorded showed normal temperature, respiratory rate 20, heart rate 84, blood pressure 131/47-119/46. The pulse oxygen saturation recorded as 98% on room air. HEENT: Examination shows icterus ____. NECK: Supple. CARDIOVASCULAR: S1, S2 audible. LUNGS: No wheezing or crackles. ABDOMEN: Soft, nontender. LABORATORY DATA: CMP this morning noted normal BUN and creatinine. Potassium was 3.1. CBC this morning, hemoglobin 8.7, hematocrit 24.8, platelet count of 91,000. IMPRESSION: 1. 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 2. Area of atelectasis of the right lower lobe and pleural fluid combination in the right lower lobe. 3. History of advanced alcoholic liver cirrhosis. 4. Thrombocytopenia secondary to liver cirrhosis. PLAN OF TREATMENT: Continue drainage of pleural fluid as previously. Obtain another chest x-ray of the patient today to assess the right hemithorax. Other usual plan of management, care. Supportive therapy, plan of care. [place], [place] PROGRESS NOTE NAME: MAGDA LANG UNIT #: [id number] ROOM: 402 DOCTOR: KAILASH VILCHIS MD BIRTHDATE: [birth year] KAILASH FORREST MD CM:PNTRANS [id number] KAILASH WILD MD 05/09/17 8722 interface
[~2017-05-07 04:52] MED LIST changes: +CEFEPIME2 GM/100 M IV; +GENERLAC10 GM/15 M PO; +LEVOFLOXAC750 MG/150 IV; +NYSTOP100000 U/G T; +SANDOSTATI500 MCG/ML IV; +SENNA CONCENTR8.6 M1 PO; +VITAMIN B-1100 M1 PO; +VITAMIN D50000 UNIT PO
[2017-05-07 05:04] LABS: HEMATOCRIT 18.3 % (37.0-47.0); HEMOGLOBIN 6.2 g/dl (12.0-16.0); MEAN CELL VOLUME 97.3 fl (81.0-99.0); MEAN CORPUSCULAR HGB CONC 33.9 g/dl (33.0-37.0); RED BLOOD COUNT 1.88 10*6/uL (4.10-5.10); WHITE BLOOD COUNT 5.6 10*3/uL (4.8-10.8)
[2017-05-07 05:14] LABS: INTERNATIONAL NORM RATIO 1.7 (2.0-3.5)
[2017-05-07 05:20] LABS: ALBUMIN 2.1 gm/dl (3.1-4.5); ALKALINE PHOSPHATASE 164 U/L (45-117); BILIRUBIN, DIRECT 4.6 mg/dL (0.0-0.2); BUN 13 mg/dl (7-24); CHLORIDE 102 mmol/L (98-107); CREATININE 1.01 mg/dL (0.55-1.02); LIPASE 194 U/L (73-393); POTASSIUM 3.2 mmol/L (3.5-5.1); SGOT/AST 48 IU/L (3-35); SGPT/ALT 29 U/L (12-78); SODIUM 133 mmol/L (136-145); TOTAL PROTEIN 4.8 gm/dL (6.4-8.2)
[2017-05-07 05:21] LABS: TROPONIN I 0.017 ng/ml (<0.045)
[2017-05-07 05:32] LABS: MEAN PLATELET VOLUME 10.9 fl (9.6-12.3); PLATELET COUNT AUTOMATED 79 10*3/uL (130-400)
[2017-05-07 05:44] LABS: BASOPHILS 1 % (0-1); TOTAL CELLS COUNTED 100 #CELLS
[2017-05-07 05:45] LABS: ACANTHOCYTES FEW; PLATELET SUFFICIENCY LOW (NORMAL); POLYCHROMASIA SLIGHT
--- NOTE | 2017-05-07 05:54 | NUR ---
PT STATES SHE IS STILL NAUSEATED AND DIZZY, NOTIFIED DR JENKINS OF LABWORK, VITAL SIGNS
--- NOTE | 2017-05-07 06:18 | NUR ---
PT STATES SHE STILL HAS DIZZINESS, TRENDELENBERG BED PLACEMENT
--- NOTE | 2017-05-07 06:49 | NUR ---
AWAITING BLOOD BANK TO HAVE PRBC AND PLATELETS READY TO TRANSFUSE
--- NOTE | 2017-05-07 07:20 | NUR ---
PT REPORT ACCEPTED. MANUAL BP IS 90/48 AT THIS TIME. PT IS RESTING WITH EYES CLOSED BUT ALERT AND ORIENTED. AWAITING PLATELETS AND PRBC'S FROM BLOOD BANK. ADMISSION PENDING.
--- NOTE | 2017-05-07 07:33 | NUR ---
BLOOD CONSENT NOW OBTAIND AND PRBC'S AND FFP NOW BEGUN PER POLICY.
--- NOTE | 2017-05-07 08:00 | NUR ---
A 51, admitted to ICCU, under the services of ARIEL Ward DO with a diagnosis of SEVERE ANEMIA. Chief complaint is SHORT OF BREATH. Patient arrived via stretcher from ER. Monitor applied. Initial assessment completed. Vital signs taken and recorded. ARIEL WARD DO notified of admission to the unit. Orders received. See assessment for past medical history, medications and allergies. Patient and/or family oriented to unit. [facility]U visitation policy reviewed. Clothing/patient valuable form completed. EARNEST DAVISON PATIENT HAS PLT AND BLOOD TRANSFUSING BLOOD SLIPS NOT FILLED OUT, 2 RN'S VERIFIED COMPATABILITY AND ARM BAND.
[2017-05-07] MEDS ORDERED: K-PHOS500 MG PO (08:34)
[2017-05-07] MEDS ORDERED: ORAZINC 220220 MG PO (08:35)
--- NOTE | 2017-05-07 08:36 | NUR ---
MED REC UP TO DATE - REVIEWED WITH MED CLAIM HISTORY & PATIENT.
--- NOTE | 2017-05-07 09:03 | NUR ---
DR. OAKES HERE TO SEE PATIENT.
--- NOTE | 2017-05-07 09:13 | NUR ---
DR. FORREST AWARE OF CONSULT.
[2017-05-07 11:47] LABS: HEMATOCRIT 21.9 % (37.0-47.0); HEMOGLOBIN 7.6 g/dl (12.0-16.0)
--- NOTE | 2017-05-07 15:06 | NUR ---
PATIENT BLADDER SCANNED FOR 499CC URINE. PATIENT TRIED USING BEDPAN MULTIPLE TIMES WITH NO RESULT. PATIENT NOW UP TO BSC TRYING TO VOID. DR. TERRI HERNANDEZ.
[2017-05-07 16:39] LABS: BILIRUBIN 1+ (NEGATIVE); BLOOD NEGATIVE (NEGATIVE); CLARITY CLEAR (CLEAR); COLOR YELLOW (YELLOW); GLUCOSE NEGATIVE (NEGATIVE); KETONE NEGATIVE (NEGATIVE); LEUKO ESTERASE NEGATIVE (NEGATIVE); NITRITE NEGATIVE (NEGATIVE); SPECIFIC GRAVITY <= 1.005 (1.005-1.030); UROBILINOGEN 0.2 E.U./dl (0.2-1.0)
[2017-05-07 17:18] LABS: BACTERIA 2+; RBC 0-2 rbc/hpf (0-2); WBC 0-2 wbc/hpf (0-5)
--- NOTE | 2017-05-07 20:24 | NUR ---
DR LEIGH NOTIFIED OF CONTINUED HYPOTENSION W/ MAP 40-50'S. PT ASYMPTOMATIC. BLOOD PRESSURE HAS BEEN LIKE THIS ALL DAY.
--- NOTE | 2017-05-07 23:00 | NUR ---
PATIENT RESTING QUIETLY WITH NO C/O AT PRESENT. DRAINAGE BAG TO RT SIDE INTACT WITH SCANT DRAINAGE. HALL SECURE AND PATENT.
--- NOTE | 2017-05-07 23:45 | NUR ---
PATIENT ASKING FOR HER HOME MEDS OF LACTULOSE AND LASIX, CONTACTED DR. CRUZ, HE STATED BP IS TOO LOW. EXPLAINED THIS TO PATIENT, SHE ACKNOWLEDGED. PATIENT DID REQUEST HER PRIOLSEC, OK'D BY DR. LEIGH TO GIVE TONIGHT.
[2017-05-08] VITALS (7 sets, daily range): BP systolic 89–111; BP diastolic 42–53
--- NOTE | 2017-05-08 01:13 | NUR ---
24 HR chart check completed.
[2017-05-08 05:47] LABS: BASO % 0.3 % (0.0-1.0); EOS # 0.3 10*3/uL (0.0-0.4); EOS % 4.2 % (1.0-4.0); HEMATOCRIT 24.4 % (37.0-47.0); HEMOGLOBIN 8.4 g/dl (12.0-16.0); LYMPH # 0.5 10*3/uL (1.3-4.4); LYMPH % 6.7 % (27.0-41.0); MEAN CELL VOLUME 95.7 fl (81.0-99.0); MEAN CORPUSCULAR HGB 32.9 pg (27.0-31.0); MEAN CORPUSCULAR HGB CONC 34.4 g/dl (33.0-37.0); MEAN PLATELET VOLUME 11.4 fl (9.6-12.3); MONO # 0.6 10*3/uL (0.1-1.0); NEUT # 5.7 10*3/uL (2.3-7.9); NEUT % 80.1 % (47.0-73.0); PLATELET COUNT AUTOMATED 85 10*3/uL (130-400); RED BLOOD COUNT 2.55 10*6/uL (4.10-5.10); RED CELL DISTRI WIDTH 19.9 % (0-14.5); WHITE BLOOD COUNT 7.2 10*3/uL (4.8-10.8)
[2017-05-08 06:00] LABS: ALBUMIN 2.3 gm/dl (3.1-4.5); ALKALINE PHOSPHATASE 189 U/L (45-117); BUN 17 mg/dl (7-24); CHLORIDE 103 mmol/L (98-107); MAGNESIUM 1.2 mg/dL (1.5-2.1); PHOSPHOROUS 3.6 mg/dL (2.5-4.9); POTASSIUM 3.3 mmol/L (3.5-5.1); SGOT/AST 42 IU/L (3-35); SGPT/ALT 29 U/L (12-78); SODIUM 133 mmol/L (136-145); TOTAL PROTEIN 5.3 gm/dL (6.4-8.2)
--- NOTE | 2017-05-08 07:17 | NUR ---
MED REC REVIEWED WITH PATIENT - SHE REMAINS AAOX3
--- NOTE | 2017-05-08 08:15 | NUR ---
PATIENT FOUND TO HAVE SWELLING BELOW THE DRAINAGE SITE THAT WAS NOT PRESENT YESTERDAY ON ASSESSMENT. EDEMA IS ALSO DOWN INTO THE RIGHT HIP AND STARTING DOWN TO THE KNEE. SCLERA ARE JAUNDICED. SKIN IS DARK JAUNDICED. YEASTY/FUNGAL TO RT ARM PIT & GROIN. PATIENT DOES NOT WANT ANY PICTURES TAKEN AND THESE HAVE BEEN PRESENT FOR A WHILE PER THE PATIENT. GROIN IS MUCH IMPROVED PER PT. PREVIOUS FUNGAL TO ABD FOLD BUT NONE NOW PER PT & VERIFIED BY NURSE. COMPLETE BATH DONE BY PA. DR TAVAREZ STOPPED IN AND WAS INFORMED OF EDEMA.
--- NOTE | 2017-05-08 08:44 | NUR ---
DR DING HERE AND LACTULOSE ALONG WITH OTHER HOME MEDS DISCUSSED
--- NOTE | 2017-05-08 09:32 | NUR ---
THIS PATIENT WAS TALKING TO THE PATIENT NEXT TO HER AND TOLD HER TO TELL HER DAUGHTER TO STOP DRINKING BECAUSE SHE WAS GOING TO DESTROY HER LIVER LIKE I DID & IT'S HELL TRYING TO GET ON A TRANSPLANT LIST. THEN THIS PATIENT SAID THAT SHE IS TIRED OF BEING IN THE HOSPITAL AND JUST WANTS TO GO HOME. THE OTHER PATIENT RESPONDED "JUST HAVE ALFRED." MAGDA THEN TOLD THE OTHER PATIENT THAT SHE HAS "LOST ALFRED." SHE TOLD THIS NURSE THAT SHE WOULD GO BACK EVEN THOUGH SHE DOESN'T WANT TO TO [place] IF NEEDED.
--- NOTE | 2017-05-08 10:53 | NUR ---
DR TAVAREZ IN TO SEE THE PATIENT. WILL REMAIN IN ICU AGAIN TO MONITOR BLOOD PRESSURE AND RT SIDED DRAINAGE.
--- NOTE | 2017-05-08 14:01 | NUR ---
SLEEPING - RESP EASY AND NONLABORED.
--- NOTE | 2017-05-08 16:42 | NUR ---
EDEMA TO AREA BELOW DRAIN IMPROVING WITH HAVING A PILLOW BEHIND HER BACK. DRAIN ALSO DRAINING BETTER. THE DRAIN ALSO LEAKED AFTER THE ADHESIVE CAME LOOSE. THE WAFER WAS REMOVED AND CLEANSED WITH SALINE. THE AREA IS IRRITATED FROM THE ADHESIVE TAPE. A NEW UROSTOMY WAFER WAS APPLIED AND NEW BAG ATTACHED. HYDROGUARD WAS APPLIED TO EXPOSED AREAS THAT ARE RED IN COLOR FROM IRRITATION. NO PICTURES TAKEN PER PT REQUEST.
--- NOTE | 2017-05-08 20:04 | NUR ---
Shift chart check completed.24 HR chart check completed.
--- NOTE | 2017-05-08 21:48 | NUR ---
PT OFFERED A BATH, BUT SHE DECLINED. ANTIFUNGAL POWDER TO HER SKIN FOLDS SCHEDULED. ASSISTED TO POSITION OF COMFORT.
--- NOTE | 2017-05-08 22:40 | NUR ---
UP TO BSC FOR LARGE MUSHY ORANGISH BM.
[2017-05-09] VITALS: BP 111/46
[2017-05-09 04:00] VITALS: BP 119/46
[2017-05-09 07:43] LABS: ALBUMIN 2.4 gm/dl (3.1-4.5); ALKALINE PHOSPHATASE 204 U/L (45-117); BUN 13 mg/dl (7-24); CHLORIDE 104 mmol/L (98-107); CREATININE 0.88 mg/dL (0.55-1.02); MAGNESIUM 1.3 mg/dL (1.5-2.1); POTASSIUM 3.1 mmol/L (3.5-5.1); SGOT/AST 43 IU/L (3-35); SGPT/ALT 29 U/L (12-78); SODIUM 136 mmol/L (136-145); TOTAL PROTEIN 5.7 gm/dL (6.4-8.2)
[2017-05-09 08:00] VITALS: BP 123/55; BP 131/47
[2017-05-09 08:04] LABS: HEMATOCRIT 24.8 % (37.0-47.0); HEMOGLOBIN 8.7 g/dl (12.0-16.0); MEAN CELL VOLUME 94.7 fl (81.0-99.0); MEAN CORPUSCULAR HGB 33.2 pg (27.0-31.0); MEAN CORPUSCULAR HGB CONC 35.1 g/dl (33.0-37.0); MEAN PLATELET VOLUME 12.4 fl (9.6-12.3); RED BLOOD COUNT 2.62 10*6/uL (4.10-5.10); RED CELL DISTRI WIDTH 19.7 % (0-14.5); WHITE BLOOD COUNT 7.6 10*3/uL (4.8-10.8)
[2017-05-09 08:23] LABS: PLATELET COUNT AUTOMATED 91 10*3/uL (130-400)
[2017-05-09 08:29] LABS: ACANTHOCYTES FEW; BASOPHILS 1 % (0-1); BURR CELLS FEW; PLATELET SUFFICIENCY LOW (NORMAL); TOTAL CELLS COUNTED 100 #CELLS
--- NOTE | 2017-05-09 09:29 | NUR ---
Bottling Attendant in to talk to patient. Patient states lives at [address] with HER BOYFRIEND. There are 22 steps in the home. Physician: DR FIERRO Pharmacy: [facility] Home health services: Patient's level of ADLs: MODERATE ASSIST Patient has working utilities: YES DME: [facility] Follow-up physician's appointment after d/c: WILL BE MADE PRIOR TO DC Does patient want to access PORTAL?: Discharge plan HOME. [facility] DISCUSS[facility]. PT REFUSES
--- NOTE | 2017-05-09 11:11 | NUR ---
TRANSFERRED TO 402 REPORT GIVEN
[2017-05-09 12:00] VITALS: BP 117/60
--- NOTE | 2017-05-09 13:35 | NUR ---
PHYSICAL THERAPY PAtient reports she is (I) with all mobility and HEP. No PT skills/needs at this time. Thank you for this referral. Emma Fortune,PT
[2017-05-09 16:00] VITALS: BP 123/57
[2017-05-09 20:00] VITALS: BP 117/60
[2017-05-10] VITALS: BP 121/55
--- NOTE | 2017-05-10 02:31 | NUR ---
PATIENT MEDICATED WITH RESTORIL AT 2353 FOR COMPLAINTS OF INSOMNIA WITH EFFECTIVE RESULTS NOTED. RESTING IN BED WITH EYES CLOSED AT THIS TIME. NO SIGNS OR SYMPTOMS OF DISTRESS NOTED. WILL CONTINUE TO MONITOR. CALL LIGHT IN REACH.
[2017-05-10 06:54] LABS: BASO % 0.3 % (0.0-1.0); EOS # 0.3 10*3/uL (0.0-0.4); EOS % 4.3 % (1.0-4.0); HEMATOCRIT 23.7 % (37.0-47.0); HEMOGLOBIN 8.4 g/dl (12.0-16.0); LYMPH # 0.9 10*3/uL (1.3-4.4); LYMPH % 13.3 % (27.0-41.0); MEAN CELL VOLUME 94.4 fl (81.0-99.0); MEAN CORPUSCULAR HGB 33.5 pg (27.0-31.0); MEAN CORPUSCULAR HGB CONC 35.4 g/dl (33.0-37.0); MEAN PLATELET VOLUME 10.4 fl (9.6-12.3); MONO # 0.8 10*3/uL (0.1-1.0); MONO % 11.4 % (3.0-9.0); NEUT # 4.8 10*3/uL (2.3-7.9); NEUT % 70.1 % (47.0-73.0); PLATELET COUNT AUTOMATED 76 10*3/uL (130-400); RED BLOOD COUNT 2.51 10*6/uL (4.10-5.10); RED CELL DISTRI WIDTH 19.4 % (0-14.5); WHITE BLOOD COUNT 6.8 10*3/uL (4.8-10.8)
[2017-05-10 07:35] LABS: ALBUMIN 2.2 gm/dl (3.1-4.5); ALKALINE PHOSPHATASE 177 U/L (45-117); BUN 9 mg/dl (7-24); CHLORIDE 100 mmol/L (98-107); CREATININE 0.79 mg/dL (0.55-1.02); MAGNESIUM 1.1 mg/dL (1.5-2.1); POTASSIUM 2.7 mmol/L (3.5-5.1); SGOT/AST 35 IU/L (3-35); SGPT/ALT 21 U/L (12-78); SODIUM 134 mmol/L (136-145)
[2017-05-10 08:00] VITALS: BP 126/52
[2017-05-10 12:00] VITALS: BP 124/52
[2017-05-10 16:00] VITALS: BP 152/72
[2017-05-10 20:00] VITALS: BP 117/50
[2017-05-11] VITALS: BP 129/56
--- NOTE | 2017-05-11 02:39 | NUR ---
MEDICATED WITH RESTORIL AT 0158 FOR COMPLAINTS OF INSOMNIA WITH EFFECTIVE RESULTS NOTED. PATIENT ALSO COMPLAINED OF CHEST TUBE SITE TO BACK AREA NOT DRAINING. REPOSITIONED OSTOMY BAG AROUND SITE TO SEE IF IT STARTS TO DRAIN. RESTING QUIETLY IN BED WITH EYES CLOSED AT THIS TIME. WILL CONTINUE TO MONITOR. CALL LIGHT IN REACH.
[2017-05-11 06:24] LABS: HEMATOCRIT 24.5 % (37.0-47.0); HEMOGLOBIN 8.6 g/dl (12.0-16.0); MEAN CELL VOLUME 94.6 fl (81.0-99.0); MEAN CORPUSCULAR HGB 33.2 pg (27.0-31.0); MEAN CORPUSCULAR HGB CONC 35.1 g/dl (33.0-37.0); MEAN PLATELET VOLUME 12.4 fl (9.6-12.3); RED BLOOD COUNT 2.59 10*6/uL (4.10-5.10); RED CELL DISTRI WIDTH 19.2 % (0-14.5); WHITE BLOOD COUNT 6.8 10*3/uL (4.8-10.8)
[2017-05-11 06:29] LABS: PLATELET COUNT AUTOMATED 66 10*3/uL (130-400)
[2017-05-11 07:01] LABS: BUN 8 mg/dl (7-24); CHLORIDE 98 mmol/L (98-107); MAGNESIUM 1.6 mg/dL (1.5-2.1); POTASSIUM 3.7 mmol/L (3.5-5.1); SODIUM 128 mmol/L (136-145)
[2017-05-11 07:08] LABS: TOTAL CELLS COUNTED 100 #CELLS
[2017-05-11 07:09] LABS: ACANTHOCYTES FEW; PLATELET SUFFICIENCY LOW (NORMAL); SCHISTOCYTES FEW
[2017-05-11 08:00] VITALS: BP 122/46
[2017-05-11 12:00] VITALS: BP 125/52
[2017-05-11 12:36] LABS: BILIRUBIN 3+ (NEGATIVE); BLOOD TRACE-INTACT (NEGATIVE); CLARITY SL CLOUDY (CLEAR); COLOR ORANGE (YELLOW); GLUCOSE NEGATIVE (NEGATIVE); KETONE TRACE (NEGATIVE); LEUKO ESTERASE 3+ (NEGATIVE); NITRITE POSITIVE (NEGATIVE); PH 6.5 (5.0-9.0); UROBILINOGEN 0.2 E.U./dl (0.2-1.0)
--- NOTE | 2017-05-11 12:45 | NUR ---
DR. HELTON'S ANSWERING SERVICE NOTIFIED OF CONSULT.
[2017-05-11 12:57] LABS: BACTERIA 3+; WBC 21-30 wbc/hpf (0-5)
[2017-05-11 16:00] VITALS: BP 144/60
[2017-05-11 20:00] VITALS: BP 129/54; BP 167/61
[2017-05-12] VITALS: BP 134/48
[2017-05-12 06:49] LABS: BASO % 0.3 % (0.0-1.0); EOS # 0.3 10*3/uL (0.0-0.4); EOS % 3.5 % (1.0-4.0); HEMATOCRIT 25.1 % (37.0-47.0); HEMOGLOBIN 8.9 g/dl (12.0-16.0); LYMPH # 0.6 10*3/uL (1.3-4.4); LYMPH % 7.3 % (27.0-41.0); MEAN CORPUSCULAR HGB 33.3 pg (27.0-31.0); MEAN CORPUSCULAR HGB CONC 35.5 g/dl (33.0-37.0); MEAN PLATELET VOLUME 10.9 fl (9.6-12.3); MONO # 0.7 10*3/uL (0.1-1.0); MONO % 9.7 % (3.0-9.0); NEUT # 5.9 10*3/uL (2.3-7.9); NEUT % 78.5 % (47.0-73.0); PLATELET COUNT AUTOMATED 78 10*3/uL (130-400); RED BLOOD COUNT 2.67 10*6/uL (4.10-5.10); RED CELL DISTRI WIDTH 18.6 % (0-14.5); WHITE BLOOD COUNT 7.5 10*3/uL (4.8-10.8)
[2017-05-12 07:27] LABS: CHLORIDE 93 mmol/L (98-107); CREATININE 0.71 mg/dL (0.55-1.02); INTERNATIONAL NORM RATIO 1.7 (2.0-3.5); POTASSIUM 3.1 mmol/L (3.5-5.1); SODIUM 127 mmol/L (136-145)
[2017-05-12 07:31] LABS: BUN 7 mg/dl (7-24)
[2017-05-12 08:02] VITALS: BP 130/60
--- NOTE | 2017-05-12 10:30 | NUR ---
NOTIFIED DR. Colin TAVAREZ OF PT'S HR.
[2017-05-12 12:00] VITALS: BP 124/49
[2017-05-12 16:00] VITALS: BP 115/52
--- NOTE | 2017-05-12 17:20 | NUR ---
ZOFRAN GIVEN FOR C/O NAUSEA. WILL MONITOR.
--- NOTE | 2017-05-12 18:05 | NUR ---
NOTIFIED DR. TAVAREZ OF PT + BLOOD CULTURE
--- NOTE | 2017-05-12 18:16 | NUR ---
NOTIED DR. STEPHENS OF + BLOOD CULTURES
--- NOTE | 2017-05-12 19:30 | NUR ---
Called and notified Dr. Elizabeth regarding elevated temperature. He said he would look at patient's chart.
[2017-05-12 20:00] VITALS: BP 117/51
--- NOTE | 2017-05-12 23:21 | NUR ---
Called and notified Dr. Marin regarding inability to have IV access in the antecubital for the CTA chest that was ordered. No new orders were received at this time.
[2017-05-13] VITALS: BP 115/50
--- NOTE | 2017-05-13 00:57 | NUR ---
24 HR chart check completed.
--- NOTE | 2017-05-13 06:08 | NUR ---
Called and notified Dr. Marin of critical positive blood culture results. No new orders were received at this time.
[2017-05-13 08:00] VITALS: BP 120/70
[2017-05-13 09:02] LABS: BASO % 0.1 % (0.0-1.0); EOS # 0.1 10*3/uL (0.0-0.4); EOS % 1.7 % (1.0-4.0); HEMATOCRIT 29.3 % (37.0-47.0); HEMOGLOBIN 10.1 g/dl (12.0-16.0); LYMPH # 0.5 10*3/uL (1.3-4.4); LYMPH % 7.3 % (27.0-41.0); MEAN CELL VOLUME 95.4 fl (81.0-99.0); MEAN CORPUSCULAR HGB 32.9 pg (27.0-31.0); MEAN CORPUSCULAR HGB CONC 34.5 g/dl (33.0-37.0); MONO # 0.8 10*3/uL (0.1-1.0); MONO % 10.9 % (3.0-9.0); NEUT # 5.9 10*3/uL (2.3-7.9); NEUT % 79.1 % (47.0-73.0); RED BLOOD COUNT 3.07 10*6/uL (4.10-5.10); RED CELL DISTRI WIDTH 18.6 % (0-14.5); WHITE BLOOD COUNT 7.4 10*3/uL (4.8-10.8)
[2017-05-13 09:13] LABS: PLATELET COUNT AUTOMATED 77 10*3/uL (130-400)
[2017-05-13 09:14] LABS: MEAN PLATELET VOLUME 10.6 fl (9.6-12.3)
[2017-05-13 09:41] LABS: ACT PARTIAL THROMBO TIME 39.7 SECONDS (20.8-31.5); INTERNATIONAL NORM RATIO 1.8 (2.0-3.5)
[2017-05-13 09:44] LABS: ALBUMIN 2.3 gm/dl (3.1-4.5); ALKALINE PHOSPHATASE 198 U/L (45-117); BUN 9 mg/dl (7-24); CHLORIDE 91 mmol/L (98-107); CREATININE 0.99 mg/dL (0.55-1.02); POTASSIUM 3.1 mmol/L (3.5-5.1); SGOT/AST 38 IU/L (3-35); SGPT/ALT 21 U/L (12-78); SODIUM 124 mmol/L (136-145); TOTAL PROTEIN 5.9 gm/dL (6.4-8.2)
--- NOTE | 2017-05-13 10:12 | NUR ---
DR. HELTON ANSWERING SERVICE ATTEMPT TO REACH THIS AM.
[2017-05-13 12:00] VITALS: BP 104/56; BP 84/58
--- NOTE | 2017-05-13 12:30 | NUR ---
DR. HELTON WAS IN TO SEE PATIENT.
[2017-05-13 16:00] VITALS: BP 123/52
[2017-05-13 20:00] VITALS: BP 122/74
--- NOTE | 2017-05-13 20:42 | NUR ---
Called and notified Dr. Hodges regarding patient's c/o chest pain. Told him of patient's vital signs and he said to go ahead and give her Morphine and he would come and see her.
--- NOTE | 2017-05-13 20:48 | NUR ---
Medicated with Morphine IV prn for severe chest pain. Will monitor effectiveness. Call light within reach.
--- NOTE | 2017-05-13 21:43 | NUR ---
Patient resting in bed watching TV. States " I feel much better after seeing the doctor and talking with him." Will continue to monitor. Call light within reach.
--- NOTE | 2017-05-13 23:27 | NUR ---
Medicated with Restoril po prn for help with sleep. Will monitor effectiveness. Call light within reach.
[2017-05-14] VITALS: BP 133/55
--- NOTE | 2017-05-14 01:14 | NUR ---
24 HR chart check completed.
--- NOTE | 2017-05-14 03:29 | NUR ---
Medicated with Morphine IV prn for generalized discomfort. Will monitor effectiveness. Call light within reach.
--- NOTE | 2017-05-14 04:30 | NUR ---
Patient reting quietly in bed with eyes closed. Morphine effective. Will continue to monitor. Call light within reach.
[2017-05-14 07:30] LABS: BASO % 0.4 % (0.0-1.0); EOS # 0.3 10*3/uL (0.0-0.4); HEMATOCRIT 26.7 % (37.0-47.0); HEMOGLOBIN 9.3 g/dl (12.0-16.0); LYMPH # 0.6 10*3/uL (1.3-4.4); LYMPH % 8.1 % (27.0-41.0); MEAN CELL VOLUME 94.3 fl (81.0-99.0); MEAN CORPUSCULAR HGB 32.9 pg (27.0-31.0); MEAN CORPUSCULAR HGB CONC 34.8 g/dl (33.0-37.0); MEAN PLATELET VOLUME 11.2 fl (9.6-12.3); MONO # 0.9 10*3/uL (0.1-1.0); MONO % 12.5 % (3.0-9.0); NEUT % 73.4 % (47.0-73.0); PLATELET COUNT AUTOMATED 72 10*3/uL (130-400); RED BLOOD COUNT 2.83 10*6/uL (4.10-5.10); RED CELL DISTRI WIDTH 17.9 % (0-14.5); WHITE BLOOD COUNT 6.8 10*3/uL (4.8-10.8)
--- NOTE | 2017-05-14 07:37 | NUR ---
PT C/O CHEST PAIN OF [address] AWARE OF CHEST PAIN. MORPHINE GIVEN IV AT THIS TIME. WILL CONT TO MONITOR. CALL LIGHT IN REACH.
[2017-05-14 07:42] LABS: BUN 7 mg/dl (7-24); CHLORIDE 94 mmol/L (98-107); CREATININE 0.63 mg/dL (0.55-1.02); POTASSIUM 2.7 mmol/L (3.5-5.1); SODIUM 126 mmol/L (136-145)
--- NOTE | 2017-05-14 07:59 | NUR ---
POSITIVE BLOOD CULTURES OF STAPH EPIDERMATIS AND VANC TROUGH OF 24.[address] DOYLE. ALSO VANCO TROUGH REPORTED TO PHARMACY. I ALSO AT THIS TIME DURING PT ASSESSMENT NOTED AN ABCESS TO PT RIGHT BACK WITH A SINGLE STITCH. AREA RED PUFFY WITH GREEN CENTER. APPEARS TO BE DRAINING. DR DOYLE MADE AWARE AT THIS TIME.
[2017-05-14 08:00] VITALS: BP 114/50
--- NOTE | 2017-05-14 08:37 | NUR ---
PT RESTING QUIETLY AT THIS TIME MORPHINE EFF. WILL CONT TO MONITOR
--- NOTE | 2017-05-14 10:45 | NUR ---
PT DROWSY WAKES UP TO ANSWER QUESTIONS AND GOES BACK TO SLEEP. HR ELEVATED. DR DOYLE MADE AWARE.
--- NOTE | 2017-05-14 11:43 | NUR ---
ATTEMPTS MADE TO START IV FOR CTA OF CHEST. UNSUCCESSFUL AND DR DOYLE WAS MADE AWARE. SHE STATED SHE WILL CANCEL THE TEST.
[2017-05-14 12:00] VITALS: BP 122/53
[2017-05-14 16:00] VITALS: BP 118/65
--- NOTE | 2017-05-14 17:01 | NUR ---
DR DOYLE NOTIFIED OF HR 150 AFTER RECEIVING CALL FROM [employer]. NO NEW ORDERS RECEIVED OTHER THAN TO NOTIFY HER IF IT HAPPENS AGAIN. WILL MONITOR.
[2017-05-14 20:00] VITALS: BP 120/68
[2017-05-15] VITALS: BP 121/71
--- NOTE | 2017-05-15 00:18 | NUR ---
24 HR chart check completed.
--- NOTE | 2017-05-15 00:52 | NUR ---
Medicated with Restoril po prn for help with sleep. Will monitor effectiveness. Call light within reach.
--- NOTE | 2017-05-15 01:50 | NUR ---
Patient resting quietly in bed with eyes closed. Restoril effective. Will continue to monitor. Call light within reach.
--- NOTE | 2017-05-15 03:09 | NUR ---
Called and notified Dr. Ferguson regarding patient's heart rate in 150's. Also told doctor that patient was up to bedside commode and patient stated she did not have any chest pain or discomfort at this time. Heart rate is [address] Ferguson said to notify him if it goes over 150 again.
[2017-05-15 06:42] LABS: BUN 6 mg/dl (7-24); CHLORIDE 96 mmol/L (98-107); CREATININE 0.58 mg/dL (0.55-1.02); POTASSIUM 3.4 mmol/L (3.5-5.1); SODIUM 127 mmol/L (136-145)
[2017-05-15 08:00] VITALS: BP 120/63
[2017-05-15 16:00] VITALS: BP 105/58
--- NOTE | 2017-05-15 17:30 | NUR ---
IV IN RIGHT FA INFILTRATED. REMOVED. NEW IV #22 PLACED LEFT FOREARM. FLUSHED, IV FLUIDS ATTACHED. PT TOLERATED WELL.
--- NOTE | 2017-05-15 19:16 | NUR ---
IVS IN RIGHT AND LEFT FOREARM D/CD. NEW IV PLACED IN RIGHT AC #20. GOOD BLOOD RETURN, FLUSHED. PT TOLERATED WELL
[2017-05-15 20:00] VITALS: BP 119/57
--- NOTE | 2017-05-15 20:25 | NUR ---
RESTING IN BED WITH EYES CLOSED. 02 INTACT. NO DISTRESS NOTED. CALL LIGHT WITHIN REACH.
--- NOTE | 2017-05-15 22:11 | NUR ---
MEDICATED WITH RESTORIL FOR SLEEP PER PT'S REQUEST.
[2017-05-16] VITALS: BP 109/55
--- NOTE | 2017-05-16 | NUR ---
PT LETHARGIC, SPEECH SLURRED, SLOW TO RESPOND. INCONTINENT OF BM. BED ALARM TURNED ON FOR SAFETY. ENCOURAGED PT TO CALL FOR ASSISTANCE. CALL LIGHT IN REACH.
--- NOTE | 2017-05-16 01:30 | NUR ---
PT INCONTINENT OF BM. BED BATH GIVEN. REUBEN HOSE AND NON SKID SLIPPERS PLACED ON PT. PT DENIES ANY C/O. PT CONT. TO HAVE LIQUID STOOL. PUPILS PERRLA 4MM BILATERAL. HAND GRASPS EQUAL. BENDING RUE FREQ CAUSING IV TO ALARM OCCLUSSION. ENOCOURAGED PT TO KEEP ARM STRAIGHT TO COMPLETE ATB INFUSION.
--- NOTE | 2017-05-16 02:00 | NUR ---
PT CONT. TO BE LETHARGIC/INCONTINENT/SLURRED SPEECH AND ATTEMPTING TO GET OOB UNASSISTED WITH UNSTEADY GAIT. LIPS BLEEDING D/T DRYNESS. LIP MOISTURIZER APPLIED. BILATERAL FEET DRY/FLAKY. LOTION APPLIED.
--- NOTE | 2017-05-16 04:18 | NUR ---
24 HR chart check completed.
--- NOTE | 2017-05-16 04:49 | NUR ---
PT MOVED TO ROOM 419 D/T FREQUENTLY GETTING OOB UNASSISTED AND UNSTEADY GAIT.
[2017-05-16 08:00] VITALS: BP 109/33
--- NOTE | 2017-05-16 08:00 | NUR ---
[employer] CONSULTANT VS. VERY WEAK AND DEBILITATED. PROGRESS NOTED LOOK LIKE SHE WILL NEED IV ATN AFTER DC. PT STATES SHE CANNOT DO THIS AT HOME. AGREES TO SNF STAY AND CHOOSES [facility] AND [facility]. DC PLUMBER WILL MAKE REFERRAL. WILL NEED INS PRECERT.
[2017-05-16 08:44] LABS: BASO # 0.1 10*3/uL (0.0-0.1); BASO % 0.7 % (0.0-1.0); EOS # 0.4 10*3/uL (0.0-0.4); HEMOGLOBIN 10.4 g/dl (12.0-16.0); LYMPH # 0.9 10*3/uL (1.3-4.4); MEAN CELL VOLUME 93.5 fl (81.0-99.0); MEAN CORPUSCULAR HGB 32.4 pg (27.0-31.0); MEAN CORPUSCULAR HGB CONC 34.7 g/dl (33.0-37.0); MEAN PLATELET VOLUME 10.9 fl (9.6-12.3); MONO # 0.8 10*3/uL (0.1-1.0); MONO % 11.1 % (3.0-9.0); NEUT # 4.9 10*3/uL (2.3-7.9); NEUT % 69.4 % (47.0-73.0); PLATELET COUNT AUTOMATED 106 10*3/uL (130-400); RED BLOOD COUNT 3.21 10*6/uL (4.10-5.10); RED CELL DISTRI WIDTH 17.5 % (0-14.5); WHITE BLOOD COUNT 7.1 10*3/uL (4.8-10.8)
--- NOTE | 2017-05-16 08:49 | NUR ---
Referral made to [facility]. Authorization from insurance will be required. WIll continue to follow.
[2017-05-16 08:52] LABS: INTERNATIONAL NORM RATIO 1.7 (2.0-3.5)
--- NOTE | 2017-05-16 09:22 | NUR ---
PATIENT HAD COMPLETE ECHO 04/22/[address] IYER. DUPLICATE ECHO ORDER CANCELLED.
--- NOTE | 2017-05-16 11:33 | NUR ---
OT evaluation completed on 4th floor with full eval to follow. Precautions: fall risk, IV, bed alarm. Patient with moderate complexity level. Recommend SNF. Patient with decreased strength and independence to complete ADL tasks. Thank you for this referral Mare Pressley OTR/L
--- NOTE | 2017-05-16 11:35 | NUR ---
PHYSICAL THERAPY PAtient evaluated on 4, full evaluation to follow. Continue with PT as per plan of care with fall, mod (A), alarm and acute debility precautions. May require SNF for impaired mobility in order to return to PLOF. PAtient is high complexity via chart review, tests and evaluation: 87390. Thank you for this referral. Emma Fortune,PT
[2017-05-16 12:00] VITALS: BP 118/58
--- NOTE | 2017-05-16 12:54 | NUR ---
DR. GRAYSON CALLED AND ASKED IF THE CURRENT PATIENT CONDITION JANES BEEN THIS WAY ALL MORNING. I STATED THAT HER CURRENT CONDITION HAS BEEN BASELINE THROUGH THE MORNING AND TOLD THE THAT SHE WAS GIVEN A RESTORIL LAST NIGHT AND EVER SINCE HAS BEEN ACTING CONFUSED AND LETHARGIC. THE ORDERED STAT ABG'S ON PATIENT. ON ASSESSMENT OF THE PATIENT AFTER TALKING WITH DR. GRAYSON THE PATIENT WAS STILL DROWSY BUT A/OX3 COMPARED TO THIS MORNING WHEN SHE WAS JUST ALERT TO PERSON. NO OTHER CONCERNS FROM DR. GRAYSON OR THE PATEINT AT THIS TIME.
--- NOTE | 2017-05-16 13:03 | NUR ---
[facility] CALLED AND NOTIFIED THAT BED WAS READY FOR PATIENT. I NOR THE FLOOR WERE NOT NOTIFIED BY THE DR. ESPINAL THAT THE PATIENT WAS BEING TRANSFERED. NO OTHER CONCERNS AT THIS TIME.
--- NOTE | 2017-05-16 13:14 | NUR ---
CRITICAL CALED TO DR. RICE OF [facility] LEVEL 108. NO OTHER CONCERNS.
--- NOTE | 2017-05-16 13:20 | NUR ---
SPOKE WITH DR. RICE AND ASKED WHY THE PATIENT WAS BEING TRANSFERED. HE STATED THAT THE PATIENT HAS A DEFECT IN THE DIAPHRAGM AND NEEDS SURGICAL INTERVENTION. NO OTHER CONCERNS AT THIS TIME.
--- NOTE | 2017-05-16 13:24 | NUR ---
AT 1315 ABG DRAWN LEFT RADIAL POS ALLENS TEST PRESSURE AND BANDAGE APPLIED PT ON 2LNC
[2017-05-16 13:25] LABS: ABG BASE EXCESS -2.3 mmol/L (-2.0-2.0); ABG HCO3 22.5 mmol/l (22-26); ABG O2 SATURATION 91.7 % (95-97); ARTERIAL BLOOD GAS PCO2 40.6 mmHg (35-45); ARTERIAL BLOOD GAS PH 7.36 (7.35-7.45); ARTERIAL BLOOD GAS PO2 61.7 mmHg (80-90)
--- NOTE | 2017-05-16 13:35 | NUR ---
DR. FORREST CALLED AND TOLD ABOUT TRANSFER. THE WAS ALREADY NOTIFIED FROM DR. GRAYSON. NO CONCERNS FROM DR. FORREST
--- NOTE | 2017-05-16 13:48 | NUR ---
DR. PERLA CALLED AND NOTIFIED OF TRANSFER FOR PATIENT. NO CONCERNS FROM THE
[2017-05-16] MEDS ORDERED: VANCOCIN1000 MG/25 IV (14:20)
[2017-05-16] MEDS ORDERED: METOCLOPRAMIDE H5 M1 PO (14:20)
[2017-05-16] MEDS ORDERED: MERREM IV1 GM IV (14:20)
[2017-05-16] MEDS ORDERED: PANTOPRAZOLE SO40 MG PO (14:20)
[2017-05-16] MEDS ORDERED: LACTULOSE20 GM/30 M PO (14:20)
[2017-05-16] MEDS ORDERED: LOPRESSOR25 MG PO (14:20)
[2017-05-16 16:00] VITALS: BP 101/59
--- NOTE | 2017-05-16 16:59 | NUR ---
PATIENT IS BECOMING MORE AWAKE AND ALERT. THE PATEINT HAS HAD BOUTS OF DIARRHEA THROUGHOUT THE DAY AND HER STRENGTH DOES SEEM TO BE GETTING BETTER. NO CALL YET FROM [facility]. NO CONCERNS AT THIS TIME.
[2017-05-16 20:00] VITALS: BP 129/52
--- NOTE | 2017-05-16 20:00 | NUR ---
PT. REMOVED IN FROM LEFT FOREARM. IV IN RIGHT AC IS PATEINT AND AYSMPTOMATIC.
[2017-05-17] VITALS: BP 136/70; BP 89/44
[2017-05-17 05:34] LABS: BASO % 0.5 % (0.0-1.0); EOS # 0.4 10*3/uL (0.0-0.4); EOS % 4.8 % (1.0-4.0); HEMOGLOBIN 10.3 g/dl (12.0-16.0); LYMPH # 0.8 10*3/uL (1.3-4.4); LYMPH % 9.8 % (27.0-41.0); MEAN CELL VOLUME 92.9 fl (81.0-99.0); MEAN CORPUSCULAR HGB CONC 35.5 g/dl (33.0-37.0); MEAN PLATELET VOLUME 11.3 fl (9.6-12.3); MONO # 0.8 10*3/uL (0.1-1.0); MONO % 8.9 % (3.0-9.0); NEUT # 6.4 10*3/uL (2.3-7.9); RED BLOOD COUNT 3.12 10*6/uL (4.10-5.10); RED CELL DISTRI WIDTH 17.5 % (0-14.5); WHITE BLOOD COUNT 8.6 10*3/uL (4.8-10.8)
[2017-05-17 05:36] LABS: PLATELET COUNT AUTOMATED 142 10*3/uL (130-400)
[2017-05-17 05:43] LABS: BUN 3 mg/dl (7-24); CHLORIDE 102 mmol/L (98-107); CREATININE 0.55 mg/dL (0.55-1.02); POTASSIUM 3.7 mmol/L (3.5-5.1); SODIUM 134 mmol/L (136-145)
--- NOTE | 2017-05-17 07:30 | NUR ---
PT AWAKE, ALERT TO SELF, PLACE. NO COMPLAINTS AT THIS TIME. PT BATHED AT THIS TIME. CALL LIGHT IN REACH, BED IN LOWEST POSITION. VSS.
[2017-05-17 08:00] VITALS: BP 133/54
--- NOTE | 2017-05-17 09:30 | NUR ---
PT LEFT VIA ASI TO BE TRANSFERRED TO [facility].
--- NOTE | 2017-05-18 15:08 | NUR ---
OCCUPATIONAL THERAPY CO-SIGN I approve of the Occupational Therapy notes written above. JOLIE FERNANDEZ OTR/[place]
== END 2017-05-17 09:30 | disposition short-term general hospital (02) | DRG 871 ==
LOC: ED 04:52 → 4E 06:53 → EDHOLD 06:53 → ICCU 06:58 → 4E 05-09 10:45
PROVIDERS: Emergency Medicine; Family Medicine; Family Medicine Adult Medicine; Hospitalist; Internal Medicine; Internal Medicine Nephrology; ADMIT Internal Medicine
PROC: 30233N1 Transfusion of Nonautologous Red Blood Cells into Peripheral Vein, Percutaneous Approach (ICD-10-PCS; principal; 2017-05-07)
DX: A41.9 Sepsis, unspecified organism (principal); N17.0 Acute kidney failure with tubular necrosis; E43 Unspecified severe protein-calorie malnutrition; G93.40 Encephalopathy, unspecified; J94.8 Other specified pleural conditions; J18.9 Pneumonia, unspecified organism; D68.9 Coagulation defect, unspecified; I85.10 Secondary esophageal varices without bleeding; J98.11 Atelectasis; N39.0 Urinary tract infection, site not specified; E87.1 Hypo-osmolality and hyponatremia; D69.59 Other secondary thrombocytopenia; K72.10 Chronic hepatic failure without coma; E87.6 Hypokalemia; I10 Essential (primary) hypertension; E55.9 Vitamin D deficiency, unspecified; D64.9 Anemia, unspecified; K70.31 Alcoholic cirrhosis of liver with ascites; D72.810 Lymphocytopenia; B96.1 Klebsiella pneumoniae [K. pneumoniae] as the cause of diseases classified elsewhere; R56.9 Unspecified convulsions; Z95.828 Presence of other vascular implants and grafts; Z68.32 Body mass index [BMI] 32.0-32.9, adult; Z79.899 Other long term (current) drug therapy; Z87.898 Personal history of other specified conditions; Z88.0 Allergy status to penicillin; Z81.8 Family history of other mental and behavioral disorders; Z82.49 Family history of ischemic heart disease and other diseases of the circulatory system; Y95 Nosocomial condition

== ENCOUNTER → 2017-06-01 | Outpatient (CLI) | payer OTHER ==
[~2017-06-01] MED LIST changes: +LOPRESSOR25 MG PO; +METOCLOPRAMIDE H5 M1 PO; +ORAZINC 220220 MG PO; +PANTOPRAZOLE SO40 MG PO; +VANCOCIN1000 MG/25 IV
--- NOTE | ~2017-06-01 | PROC NOTE ---
[place], [place] PROCEDURE NOTE NAME: MAGDA LANG UNIT #: [id number] ROOM: DOCTOR: NORBERTO OLIVEIRA BIRTHDATE: [birth year] DOS: 06/01/2017 DOCTOR: Dr. Syed Bonilla. RADIOLOGIST: Dr. Kenney. BACKGROUND INFORMATION: The patient, a 51-year-old female, was seen for modified barium swallow. This test was ordered to determine candidacy for diet upgrade and rule out aspiration. Medical history is significant for liver failure with past ethanol abuse, esophageal varices, intubation and passed NG tube placement. The patient has undergone prior MBS studies while hospitalized in [place] and was recommended mechanical soft diet and honey-thick liquids due to penetration and aspiration with liquids. For today's assessment, the patient was alert and able to follow commands. Oral peripheral examination revealed presence of natural teeth. Lingual, labial, and buccal skills were within normal limits in terms of strength, range of motion, and coordination. The patient was able to volitionally cough and swallow. Respiratory status was within normal limits. The patient was not receiving oxygen. METHODS AND MATERIALS USED FOR THE EXAM: The patient was positioned in the lateral plane and examination was viewed under fluoroscopy. The patient was presented with a variety of consistencies to assess swallowing skills including applesauce mixed with barium presented in half teaspoon amounts, barium-coated cookie and bread presented in bite size pieces and nectar and honey-thick barium taken by cup in single sip size amount. ORAL PHASE: The patient achieved adequate labial seal around cup and spoon with no anterior loss. Bolus formation was adequate. Mastication and oral transit was mildly impaired with solid consistencies. Tongue to palate contact was within normal limits. Tongue to posterior pharyngeal wall contact was mildly impaired with solids. Velar functioning was within normal limits. PHARYNGEAL PHASE: The pharyngeal swallow occurred within a timely manner. Pooling was observed in the vallecula with solid consistencies. The patient was able to volitionally and slowly re-swallow which was effective in clearing the residue with solids. No penetration or aspiration occurred with puree, solid or honey thick liquids. The patient did display transient penetration with the nectar thick liquid due to reduced laryngeal elevation and epiglottic function. ESOPHAGEAL PHASE: This phase of the swallow was not formally assessed during this examination. IMPRESSIONS AND RECOMMENDATIONS: Based upon assessment results, this 51-year-old patient presents with a mild oropharyngeal dysphagia characterized by slow mastication and transit with solids, pooling in the vallecula which did eventually cleared with re-swallow and transient penetration with nectar-thick liquid. Recommend, the patient remain on mechanical soft diet and honey-thick liquids. Recommend upright positioning for meals, small bites and sips and re-swallowing after every couple bites to clear pharynx. Also, recommend use of the [place] water protocol to allow patient water between meals. She requested [place], [place] PROCEDURE NOTE NAME: MAGDA LANG UNIT #: [id number] ROOM: DOCTOR: NORBERTO OLIVEIRA BIRTHDATE: [birth year] to have water at the intermediate as she becomes very thirsty. The rationale and reasoning for the water protocol was explained and patient verbalized understanding. Recommend continued dysphagia therapy for muscle strengthening and follow up MBS to determine safety with diet upgrade. Results and recommendations were shared with the patient. A written copy was sent for education of intermediate staff and phone call was placed to Leticia, the speech pathologist, at the intermediate to inform her of results and recommendations. She verbalized understanding. Thank you very much for this referral. Should you have any questions regarding this patient, please contact the speech pathologist at [phone]. NORBERTO OLIVEIRA CM:PROCNOTE:PROCEDURE NOTE [id number] NORBERTO OLIVEIRA
--- NOTE | ~2017-06-01 | SLPIE ---
[place], [place] BILLET HEATER INITIAL EVALUATION NAME: MAGDA LANG UNIT #: [id number] ROOM: DOCTOR: JIMENEZ REEDER Speech Language Pathology Initial Evaluation Page 1 1 of Patient Name: MAGDA LANG Date: 06/01/2017 03:13 PM : 1965 SOC Date: 06/01/2017 [facility]: [facility] Provider #: [id number] Treating Clinician: CARLOS Vasquez-ROCKY Referring Physician: JIMENEZ REEDER Patient Information Address: [address] [place] [address] Physician: JIMENEZ REEDER Physician #: [facility], [facility], Zip: [place], [place] [address] Occupation: Unknown # of Approved Visits: 0 Gender: Female Tin Plater: REGINALD WILSON Rehabilitation Information / History Onset Date Code Description Primary Diagnosis: 06/01/2017 A000.00 DIAGNOSIS FROM INTERFACE NOT FOUND IN [facility] TABLE Subjective Comments: Initial evaluation created to initiate the electronic medical record. Please see PiniOn for details. Clinical Findings Functional Goals Functional Limitation Reporting Swallowing G8996 - Swallowing functional limitation, current status at therapy episode outset and at reporting intervals Current Status: CJ - At least 20 percent but less than 40 percent impaired, limited or restricted G8997 - Swallowing functional limitation, projected goal status, at therapy episode outset, at reporting intervals, and at discharge or to end reporting Goal Status: CJ - At least 20 percent but less than 40 percent impaired, limited or restricted G8998 - Swallowing functional limitation, discharge status, at discharge from therapy or to end reporting Discharge Status: CJ - At least 20 percent but less than 40 percent impaired, limited or restricted 06/01/2017 3:14:25 PM CARLOS Vasquez-ROCKY Date/Time [place], [place] BILLET HEATER INITIAL EVALUATION NAME: MAGDA LANG UNIT #: [id number] ROOM: DOCTOR: JIMENEZ REEDER [facility] License #: [id number] CM:JEOL 1519 1519 [facility] THER[facility]
--- NOTE | ~2017-06-01 | SLPPOC ---
[place], [place] CHEMISTRY DEPARTMENT CHAIR PLAN OF CARE NAME: MAGDA LANG UNIT #: [id number] ROOM: DOCTOR: JIMENEZ REEDER Speech Language Pathology Plan of Care Page 1 1 (Initial Evaluation) of Patient Name: MAGDA LANG Date: 06/01/2017 03:13 PM : 1965 SOC Date: 06/01/2017 [facility]: [facility] Provider #: [id number] Treating Clinician: CARLOS Vasquez-CHEMISTRY DEPARTMENT CHAIR Referring Physician: JIMENEZ REEDER Visits From SOC: 1 Onset Date Description Code Primary Diagnosis: 06/01/2017 A000.00 DIAGNOSIS FROM INTERFACE NOT FOUND IN [facility] TABLE Subjective Comments: Initial evaluation created to initiate the electronic medical record. Please see TRIXandTRAX for details. Initial Level Goals Functional Limitation Reporting Swallowing G8996 - Swallowing functional limitation, current status at therapy episode outset and at reporting intervals Current Status: CJ - At least 20 percent but less than 40 percent impaired, limited or restricted G8997 - Swallowing functional limitation, projected goal status, at therapy episode outset, at reporting intervals, and at discharge or to end reporting Goal Status: CJ - At least 20 percent but less than 40 percent impaired, limited or restricted G8998 - Swallowing functional limitation, discharge status, at discharge from therapy or to end reporting Discharge Status: CJ - At least 20 percent but less than 40 percent impaired, limited or restricted 06/01/2017 3:14:25 PM JIMENEZ REEDER Date/Time CARLOS Vasquez-CHEMISTRY DEPARTMENT CHAIR Date I certify the need for these services furnished under this plan of treatment while under my care. State License #: [id number] CM:SLPPOC 1521 1521 IS THERAPY [facility]
--- NOTE | ~2017-06-01 | SLPPN ---
[place], [place] [employer] PROGRESS NOTE NAME: MAGDA LANG UNIT #: [id number] ROOM: DOCTOR: JIMENEZ REEDER Speech Language Pathology Treatment Note Page 1 1 of Patient Name: MAGDA LANG Date: 06/01/2017 03:14 PM : 1965 SOC Date: 06/01/2017 Provider: [facility] Provider #: [id number] Treating Clinician: CARLOS Vasquez-POLYSTYRENE BEAD MOLDER Referring Physician: JIMENEZ REEDER Onset Date Description Code Primary Diagnosis: 06/01/2017 A000.00 DIAGNOSIS FROM INTERFACE NOT FOUND IN [facility] TABLE Time In: 02:00 PM Time Out: 03:00 PM [employer] Interventions and CPT Codes Consisted of: CPT Code Modifiers Minutes Units MOTION FLUOROSCOPY/SWALLOW 94471 60 1 Total Minutes: 60 Total Timed Minutes: 0 Total Untimed Minutes: 60 Total Units: 1 Total Timed Units: 0 Total Untimed Units: 1 06/01/2017 3:15:34 PM CARLOS Vasquez-ROCKY Date/Time State License #: [id number] CM:MEGA 1521 1520 IS THERAPY [facility]
--- NOTE | 2017-06-01 14:46 | NUR ---
SPEECH PATHOLOGY Outpatient MBS completed as per orders. Patient's hx is significant for liver failure with past ETOH abuse, esophageal varices, intubation and NG tube placement. She has undergone prior MBS studies while hospitalized in [place] and was dave. mechanical soft diet and honey thick liquids. She was alert and oriented for today's assessment and challenged with puree, solid, and nectar and honey thick liquids. Results revealed a mild oropharyngeal dysphagia characterized by slow mastication and transit with solids, pooling in the valleculae which did eventually clear with reswallow and transient penetration with nectar liquid. Recommend she remain on mechanical soft diet and honey thick liquids. Recommend upright positioning for meals, small bites/sips, reswallow after every couple bites to clear pharynx and use of [place] Water Protocol to allow water between meals. Patient requested to have water at the shelter and the rationale and reasoning for water protocol was explained. She verbalized understanding. Recommend continued therapy for muscle strengthening and f/u MBS to determine safety with diet upgrade. Results and dave. were shared with patient, written copy was sent for education of [facility] staff and phone call was placed with PHOTOGRAPHY TEACHER, Leticia, at [facility] to inform her of results and dave. She verbalized understanding. Dictated report to follow. Thank you for this referral. NORBERTO OLIVEIRA MSCCC-PHOTOGRAPHY TEACHER
== END | disposition home or self-care (01) ==
LOC: RAD/SH 13:58
DX: R13.12 Dysphagia, oropharyngeal phase (principal); G93.40 Encephalopathy, unspecified

== ENCOUNTER 2017-07-20 10:10 | Emergency (ER) | payer OTHER ==
[~2017-07-20] VITALS: Wt 79.4 kg
[2017-07-20 11:07] LABS: ACT PARTIAL THROMBO TIME 35.1 SECONDS (20.8-31.5); INTERNATIONAL NORM RATIO 1.4 (2.0-3.5)
[2017-07-20 11:12] LABS: BASO % 0.4 % (0.0-1.0); EOS # 0.2 10*3/uL (0.0-0.4); EOS % 2.6 % (1.0-4.0); HEMOGLOBIN 6.5 g/dl (12.0-16.0); LYMPH # 0.9 10*3/uL (1.3-4.4); LYMPH % 12.3 % (27.0-41.0); MEAN CELL VOLUME 103.3 fl (81.0-99.0); MEAN CORPUSCULAR HGB 35.3 pg (27.0-31.0); MEAN CORPUSCULAR HGB CONC 34.2 g/dl (33.0-37.0); MEAN PLATELET VOLUME 10.2 fl (9.6-12.3); MONO # 0.6 10*3/uL (0.1-1.0); MONO % 8.5 % (3.0-9.0); NEUT # 5.5 10*3/uL (2.3-7.9); NEUT % 74.8 % (47.0-73.0); PLATELET COUNT AUTOMATED 87 10*3/uL (130-400); RED BLOOD COUNT 1.84 10*6/uL (4.10-5.10); WHITE BLOOD COUNT 7.3 10*3/uL (4.8-10.8)
[2017-07-20 11:15] LABS: ALKALINE PHOSPHATASE 224 U/L (45-117); BUN 17 mg/dl (7-24); CHLORIDE 97 mmol/L (98-107); CREATININE 1.01 mg/dL (0.55-1.02); POTASSIUM 4.4 mmol/L (3.5-5.1); SGOT/AST 35 IU/L (3-35); SGPT/ALT 23 U/L (12-78); SODIUM 126 mmol/L (136-145); TOTAL PROTEIN 5.9 gm/dL (6.4-8.2)
[2017-07-20 11:48] LABS: BILIRUBIN 1+ (NEGATIVE); BLOOD NEGATIVE (NEGATIVE); CLARITY SL CLOUDY (CLEAR); COLOR YELLOW (YELLOW); GLUCOSE NEGATIVE (NEGATIVE); KETONE NEGATIVE (NEGATIVE); LEUKO ESTERASE 3+ (NEGATIVE); NITRITE NEGATIVE (NEGATIVE); PH 5.5 (5.0-9.0); SPECIFIC GRAVITY <= 1.005 (1.005-1.030); UROBILINOGEN 0.2 E.U./dl (0.2-1.0)
[2017-07-20 11:56] LABS: BACTERIA 4+; WBC 21-30 wbc/hpf (0-5)
== END 2017-07-20 18:13 | disposition short-term general hospital (02) ==
LOC: ED 10:10
PROVIDERS: Emergency Medicine
DX: D64.9 Anemia, unspecified (principal); E87.1 Hypo-osmolality and hyponatremia; I10 Essential (primary) hypertension; Z98.890 Other specified postprocedural states; Z79.899 Other long term (current) drug therapy; Z88.0 Allergy status to penicillin

== ENCOUNTER → 2017-07-26 | Outpatient (CLI) | payer OTHER ==
[2017-07-26 12:31] LABS: ALBUMIN 2.5 gm/dl (3.1-4.5); BUN 9 mg/dl (7-24); CHLORIDE 100 mmol/L (98-107); CREATININE 0.85 mg/dL (0.55-1.02); POTASSIUM 3.3 mmol/L (3.5-5.1); SGOT/AST 45 IU/L (3-35); SGPT/ALT 32 U/L (12-78); SODIUM 131 mmol/L (136-145); TOTAL PROTEIN 7.2 gm/dL (6.4-8.2)
[2017-07-26 12:35] LABS: ALKALINE PHOSPHATASE 233 U/L (45-117)
== END | disposition home or self-care (01) ==
LOC: LAB 11:22
PROVIDERS: Internal Medicine
DX: K70.30 Alcoholic cirrhosis of liver without ascites (principal)

== ENCOUNTER 2017-08-13 07:39 | Emergency (ER) | payer OTHER ==
[~2017-08-13] VITALS: Ht 165.1 cm; Wt 69.4 kg
[2017-08-13 08:07] LABS: BASO % 0.4 % (0.0-1.0); EOS # 0.2 10*3/uL (0.0-0.4); EOS % 2.3 % (1.0-4.0); HEMATOCRIT 24.4 % (37.0-47.0); HEMOGLOBIN 8.1 g/dl (12.0-16.0); LYMPH # 0.9 10*3/uL (1.3-4.4); LYMPH % 12.9 % (27.0-41.0); MEAN CELL VOLUME 105.2 fl (81.0-99.0); MEAN CORPUSCULAR HGB 34.9 pg (27.0-31.0); MEAN CORPUSCULAR HGB CONC 33.2 g/dl (33.0-37.0); MEAN PLATELET VOLUME 11.2 fl (9.6-12.3); MONO # 0.7 10*3/uL (0.1-1.0); NEUT # 5.1 10*3/uL (2.3-7.9); NEUT % 73.7 % (47.0-73.0); PLATELET COUNT AUTOMATED 86 10*3/uL (130-400); RED BLOOD COUNT 2.32 10*6/uL (4.10-5.10); RED CELL DISTRI WIDTH 15.9 % (0-14.5)
[2017-08-13 08:12] LABS: INTERNATIONAL NORM RATIO 1.3 (2.0-3.5)
[2017-08-13 08:18] LABS: ALBUMIN 2.2 gm/dl (3.1-4.5); ALKALINE PHOSPHATASE 222 U/L (45-117); BUN 10 mg/dl (7-24); CHLORIDE 98 mmol/L (98-107); CREATININE 0.92 mg/dL (0.55-1.02); LIPASE 254 U/L (73-393); POTASSIUM 3.5 mmol/L (3.5-5.1); SGOT/AST 38 IU/L (3-35); SGPT/ALT 27 U/L (12-78); SODIUM 131 mmol/L (136-145); TOTAL PROTEIN 6.7 gm/dL (6.4-8.2)
[2017-08-13 08:19] LABS: BILIRUBIN NEGATIVE (NEGATIVE); BLOOD NEGATIVE (NEGATIVE); CLARITY CLEAR (CLEAR); COLOR YELLOW (YELLOW); GLUCOSE NEGATIVE (NEGATIVE); KETONE NEGATIVE (NEGATIVE); LEUKO ESTERASE 2+ (NEGATIVE); NITRITE NEGATIVE (NEGATIVE); PH 6.5 (5.0-9.0); SPECIFIC GRAVITY <= 1.005 (1.005-1.030)
[2017-08-13 08:25] LABS: BACTERIA 4+; WBC 21-30 wbc/hpf (0-5)
[2017-08-13] MEDS ORDERED: Zofran4 MG PO (11:00)
== END 2017-08-13 11:22 | disposition home or self-care (01) ==
LOC: ED 07:39
PROVIDERS: Emergency Medicine
DX: D64.9 Anemia, unspecified (principal); K70.31 Alcoholic cirrhosis of liver with ascites; E83.42 Hypomagnesemia; E87.1 Hypo-osmolality and hyponatremia; R60.0 Localized edema; R74.8 Abnormal levels of other serum enzymes; E72.20 Disorder of urea cycle metabolism, unspecified; I10 Essential (primary) hypertension; Z98.890 Other specified postprocedural states; Z79.899 Other long term (current) drug therapy; Z88.0 Allergy status to penicillin

== ENCOUNTER → 2017-08-30 | Outpatient (CLI) | payer OTHER ==
[~2017-08-30] MED LIST changes: +Zofran4 MG PO
== END | disposition home or self-care (01) ==
LOC: RAD 09:07
DX: M19.011 Primary osteoarthritis, right shoulder (principal)

== ENCOUNTER → 2017-09-01 | Outpatient (CLI) | payer OTHER | END | disposition home or self-care (01) | LOC: EDSTATUS 11:00 | DX: K70.31 Alcoholic cirrhosis of liver with ascites (principal); F10.10 Alcohol abuse, uncomplicated ==

== ENCOUNTER 2017-09-19 21:11 | Inpatient (IN) | payer OTHER ==
[~2017-09-19] VITALS: Ht 162.6 cm; Wt 78.2 kg
--- NOTE | ~2017-09-19 | O ---
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 PAST MEDICAL HISTORY: Associated with hepatorenal syndrome, otherwise, anasarca. PAST SURGICAL HISTORY: Right knee TIPS procedure. SOCIAL HISTORY: Nonsmoker, former alcohol consumer up to November of last year. ALLERGIES: PENICILLIN. FAMILY HISTORY: Noncontributory. PROCEDURE: Today's procedure part of investigation is panendoscopy plus biopsy and photographic series. PREMEDICATION: Versed and Diprivan. SCOPE: Olympus forward-viewing gastroscope Q10 video. REPORT: After putting the patient in left lateral position and application of lubricant to the scope, the scope was introduced. Thereafter, under direct visualization, advanced through the length of esophagus without difficulty. Esophagus cervicothoracic distally carefully examined. Distal esophageal varicosity was noticed. These are the residual status post previous band ligation therapy. The superficial ulceration at the esophagogastric junction and small hiatal hernia noticed. Gastric pouch was entered. Gastritis mostly expressing antrum was identified. A small biopsy obtained. Duodenal bulb, second and third part within normal limits. The patient extubated, tolerated procedure well. IMPRESSION: Esophageal varicosity of 2+ at the distal esophagus. Distal esophageal ulceration at esophagogastric junction. Small hiatal hernia, gastritis, status post biopsy. PLAN AND DISCUSSION: Continuation with PPI, Protonix 40 mg daily chronically and while she is inpatient, we are going to use Carafate 1 gram slurry 2 hours before meals and at bedtime, soft diet and transfusion for anemia and clinical reassessment. Thrombocytopenia is identified and periodic CBC checked after transfusion would be recommended. Workup in progress. [place], [place] OPERATIVE NOTE NAME: MAGDA LANG UNIT #: [id number] ROOM: [facility] DOCTOR: CHERRI AARON MD BIRTHDATE: [birth year] CHERRI AARON MD CM:CORDELL:OPERATIVE NOTE 1427 [id number] CHERRI AARON MD 09/20/17 1448 interface
[2017-09-19 21:23] VITALS: BP 129/45
[2017-09-19 21:34] VITALS: BP 125/41
[2017-09-19 21:54] VITALS: BP 116/50
[2017-09-19 22:18] LABS: BASO % 0.5 % (0.0-1.0); EOS # 0.2 10*3/uL (0.0-0.4); EOS % 2.7 % (1.0-4.0); HEMATOCRIT 25.2 % (37.0-47.0); HEMOGLOBIN 8.3 g/dl (12.0-16.0); LYMPH # 0.7 10*3/uL (1.3-4.4); LYMPH % 10.5 % (27.0-41.0); MEAN CELL VOLUME 103.7 fl (81.0-99.0); MEAN CORPUSCULAR HGB 34.2 pg (27.0-31.0); MEAN CORPUSCULAR HGB CONC 32.9 g/dl (33.0-37.0); MEAN PLATELET VOLUME 10.1 fl (9.6-12.3); MONO # 0.5 10*3/uL (0.1-1.0); MONO % 7.9 % (3.0-9.0); NEUT # 5.1 10*3/uL (2.3-7.9); NEUT % 77.8 % (47.0-73.0); PLATELET COUNT AUTOMATED 76 10*3/uL (130-400); RED BLOOD COUNT 2.43 10*6/uL (4.10-5.10); RED CELL DISTRI WIDTH 14.2 % (0-14.5); WHITE BLOOD COUNT 6.6 10*3/uL (4.8-10.8)
[2017-09-19 22:34] LABS: ALBUMIN 2.5 gm/dl (3.1-4.5); ALKALINE PHOSPHATASE 218 U/L (45-117); BUN 12 mg/dl (7-24); CHLORIDE 101 mmol/L (98-107); POTASSIUM 3.3 mmol/L (3.5-5.1); SGOT/AST 44 IU/L (3-35); SGPT/ALT 24 U/L (12-78); SODIUM 136 mmol/L (136-145); TOTAL PROTEIN 6.5 gm/dL (6.4-8.2); TROPONIN I 0.044 ng/ml (<0.045)
[2017-09-19 22:56] LABS: ACT PARTIAL THROMBO TIME 30.2 SECONDS (19.5-32.1); INTERNATIONAL NORM RATIO 1.3 (2.0-3.5)
[2017-09-19 23:05] VITALS: BP 126/46
[2017-09-19 23:38] VITALS: BP 107/43
[2017-09-19] MEDS ORDERED: ZOFRAN ODT4 MG SL (23:59)
[2017-09-20] VITALS (12 sets, daily range): BP systolic 89–116; BP diastolic 36–72
[2017-09-20] MEDS ORDERED: FUROSEMIDE40 MG PO (00:01)
[2017-09-20] MEDS ORDERED: HYDROXYZINE PAM25 M1 PO (00:01)
[2017-09-20] MEDS ORDERED: LASIX40 MG PO (00:02)
[2017-09-20] MEDS ORDERED: SPIRONOLACTONE100 MG PO (00:03)
[2017-09-20 05:42] LABS: BASO % 0.4 % (0.0-1.0); EOS # 0.1 10*3/uL (0.0-0.4); EOS % 2.4 % (1.0-4.0); HEMATOCRIT 21.6 % (37.0-47.0); HEMOGLOBIN 7.2 g/dl (12.0-16.0); LYMPH # 0.8 10*3/uL (1.3-4.4); LYMPH % 16.5 % (27.0-41.0); MEAN CELL VOLUME 103.8 fl (81.0-99.0); MEAN CORPUSCULAR HGB 34.6 pg (27.0-31.0); MEAN CORPUSCULAR HGB CONC 33.3 g/dl (33.0-37.0); MONO # 0.4 10*3/uL (0.1-1.0); MONO % 7.8 % (3.0-9.0); NEUT # 3.7 10*3/uL (2.3-7.9); NEUT % 72.5 % (47.0-73.0); RED BLOOD COUNT 2.08 10*6/uL (4.10-5.10); RED CELL DISTRI WIDTH 14.2 % (0-14.5); WHITE BLOOD COUNT 5.1 10*3/uL (4.8-10.8)
[2017-09-20 05:49] LABS: ALBUMIN 2.1 gm/dl (3.1-4.5); ALKALINE PHOSPHATASE 188 U/L (45-117); BUN 11 mg/dl (7-24); CHLORIDE 105 mmol/L (98-107); CHOLESTEROL 151 mg/dL (<200); CREATININE 0.75 mg/dL (0.55-1.02); HDL CHOLESTEROL 34 mg/dl (40-60); LDL CHOLESTEROL 105 mg/dL (9-159); PHOSPHOROUS 3.3 mg/dL (2.5-4.9); POTASSIUM 3.4 mmol/L (3.5-5.1); SGOT/AST 43 IU/L (3-35); SGPT/ALT 23 U/L (12-78); SODIUM 140 mmol/L (136-145); TOTAL PROTEIN 5.5 gm/dL (6.4-8.2); TRIGLYCERIDES 62 mg/dl (<150); VLDL CHOLESTEROL 12 mg/dL (6-40)
[2017-09-20 05:50] LABS: FREE T4 2.55 ng/dl (0.76-1.46)
[2017-09-20 05:53] LABS: MEAN PLATELET VOLUME 9.5 fl (9.6-12.3); PLATELET COUNT AUTOMATED 89 10*3/uL (130-400)
[2017-09-20 05:55] LABS: THYROID STIM HORMONE (HS) 0.679 uIU/ml (0.358-4.75)
[2017-09-20 06:17] LABS: ACT PARTIAL THROMBO TIME 33.5 SECONDS (20.8-31.5); INTERNATIONAL NORM RATIO 1.4 (2.0-3.5)
[2017-09-20 07:16] LABS: VITAMIN D, 25-HYDROXY 12.2 ng/mL (30-100)
[2017-09-21] VITALS: BP 110/46
[2017-09-21 07:03] LABS: BASO % 0.7 % (0.0-1.0); EOS # 0.1 10*3/uL (0.0-0.4); EOS % 2.5 % (1.0-4.0); HEMATOCRIT 23.7 % (37.0-47.0); LYMPH # 0.6 10*3/uL (1.3-4.4); LYMPH % 13.6 % (27.0-41.0); MEAN CELL VOLUME 102.2 fl (81.0-99.0); MEAN CORPUSCULAR HGB 34.5 pg (27.0-31.0); MEAN CORPUSCULAR HGB CONC 33.8 g/dl (33.0-37.0); MONO # 0.4 10*3/uL (0.1-1.0); MONO % 10.4 % (3.0-9.0); NEUT # 2.9 10*3/uL (2.3-7.9); NEUT % 72.1 % (47.0-73.0); PLATELET COUNT AUTOMATED 79 10*3/uL (130-400); RED BLOOD COUNT 2.32 10*6/uL (4.10-5.10); RED CELL DISTRI WIDTH 16.1 % (0-14.5); WHITE BLOOD COUNT 4.1 10*3/uL (4.8-10.8)
[2017-09-21 07:42] LABS: ALBUMIN 2.2 gm/dl (3.1-4.5); ALKALINE PHOSPHATASE 201 U/L (45-117); BUN 9 mg/dl (7-24); CHLORIDE 104 mmol/L (98-107); CREATININE 0.94 mg/dL (0.55-1.02); SGOT/AST 41 IU/L (3-35); SGPT/ALT 23 U/L (12-78); SODIUM 137 mmol/L (136-145); TOTAL PROTEIN 5.9 gm/dL (6.4-8.2)
[2017-09-21 08:00] VITALS: BP 98/40
[2017-09-21 09:10] LABS: INTERNATIONAL NORM RATIO 1.3 (2.0-3.5)
[2017-09-21 12:00] VITALS: BP 98/47
[2017-09-21] MEDS ORDERED: CARAFATE1 G1 PO (13:24)
[2017-09-21] MEDS ORDERED: CIPRO500 MG PO (13:24)
[2017-09-21] MEDS ORDERED: VITAMIN D31000 UNIT PO (13:24)
== END 2017-09-21 16:10 | disposition home or self-care (01) | DRG 377 ==
LOC: ED 21:11 → EDHOLD 22:44 → 4E 22:44 → ICCU 23:27 → 4E 09-20 18:39
PROVIDERS: Hospitalist; Internal Medicine Hospice and Palliative Medicine; Student in an Organized Health Care Education/Training Program
PROC: 0DB68ZX Excision of Stomach, Via Natural or Artificial Opening Endoscopic, Diagnostic (ICD-10-PCS; principal; 2017-09-20)
PROC: 30233R1 Transfusion of Nonautologous Platelets into Peripheral Vein, Percutaneous Approach (ICD-10-PCS; 2017-09-20)
PROC: 30233N1 Transfusion of Nonautologous Red Blood Cells into Peripheral Vein, Percutaneous Approach (ICD-10-PCS; 2017-09-20)
DX: K92.0 Hematemesis (principal); E43 Unspecified severe protein-calorie malnutrition; K76.7 Hepatorenal syndrome; I85.11 Secondary esophageal varices with bleeding; K22.11 Ulcer of esophagus with bleeding; E72.20 Disorder of urea cycle metabolism, unspecified; D70.9 Neutropenia, unspecified; D68.9 Coagulation defect, unspecified; K76.6 Portal hypertension; K70.30 Alcoholic cirrhosis of liver without ascites; D69.6 Thrombocytopenia, unspecified; E67.8 Other specified hyperalimentation; E87.6 Hypokalemia; D53.9 Nutritional anemia, unspecified; R74.0 Nonspecific elevation of levels of transaminase and lactic acid dehydrogenase [LDH]; E55.9 Vitamin D deficiency, unspecified; K72.10 Chronic hepatic failure without coma; K44.9 Diaphragmatic hernia without obstruction or gangrene; K21.0 Gastro-esophageal reflux disease with esophagitis; R00.0 Tachycardia, unspecified; R73.9 Hyperglycemia, unspecified; K29.70 Gastritis, unspecified, without bleeding; Z82.49 Family history of ischemic heart disease and other diseases of the circulatory system; Z88.0 Allergy status to penicillin; Z81.8 Family history of other mental and behavioral disorders; Z79.899 Other long term (current) drug therapy; Z68.29 Body mass index [BMI] 29.0-29.9, adult